=== PATIENT | male | born 1970 | race Caucasian/White ===

== ENCOUNTER 2021-11-05 22:34 | Inpatient (IN) | payer OTHER ==
[~2021-11-05] VITALS: Ht 182.9 cm; Wt 72.3 kg
[2021-11-05 22:49] LABS: BASO # 0.1 x10^3/uL (0.0-0.2); BASO % 1 % (0-3); EOS # 0.2 x10^3/uL (0.0-0.7); EOS % 1 % (0-3); HEMATOCRIT 40.8 % (39.0-53.0); HEMOGLOBIN 13.5 g/dL (13.0-17.5); LYMPH # 4.7 x10^3/uL (1.0-4.8); LYMPH % 41 % (24-48); MEAN CORPUSCULAR HEMOGLOBIN 32 pg (25-35); MEAN CORPUSCULAR HGB CONC 33 g/dL (31-37); MEAN CORPUSCULAR VOLUME 96 fL (79-100); MONO # 0.7 x10^3/uL (0.0-1.1); MONO % 6 % (0-9); NEUT # 5.7 x10^3/uL (1.8-7.7); NEUT % 50 % (31-73); PLATELET COUNT 330 x10^3/uL (140-400); RED BLOOD COUNT 4.26 x10^6/uL (4.30-5.70); WHITE BLOOD COUNT 11.3 x10^3/uL (4.0-11.0)
[2021-11-05] MEDS ORDERED: fentaNYL PF VIAL 100 MCG/2 ML VIAL ONE (22:55)
--- NOTE | 2021-11-05 22:55 | PHYS DOC ---
General Adult EDM: Chief Complaint: CPR/FULL ARREST HPI: HPI: Patient is a 51 year old male brought in by medics after cardiac arrest. Patient had a witnessed cardiac arrest while dancing at a local strip club. Patient was found to be in V. tach by first responders. Patient was shocked and given 1 of epi. Patient achieved ROSC. Patient was intubated in the field and brought into the hospital. Report received from medics. Review of Systems: Review of Systems: Patient intubated and sedated status postcardiac arrest Heart Score: C/O Chest Pain: No Risk Factors: Risk Factors: DM, Current or recent (<one month) smoker, HTN, HLP, family history of CAD, obesity. Risk Scores: Score 0 - 3: 2.5% MACE over next 6 weeks - Discharge Home Score 4 - 6: 20.3% MACE over next 6 weeks - Admit for Clinical Observation Score 7 - 10: 72.7% MACE over next 6 weeks - Early Invasive Strategies Current Medications: Current Medications Medications (Trade) Dose Ordered Sig/Claued Start Time Stop Time Status Last Admin Dose Admin Propofol (Diprivan) 200 mg 1X ONCE 11/05/21 22:45 11/05/21 22:46 UNV Sodium Chloride 1,000 ml @ 1,000 mls/hr 1X ONCE 11/05/21 22:45 11/05/21 23:44 UNV Physical Exam: PE: Constitutional: Patient intubated and unresponsive HENT: Normocephalic, atraumatic, bilateral external ears normal, oropharynx moist, no oral exudates, nose normal. [] Eyes: PERRLA, EOMI, conjunctiva normal, no discharge. [] Neck: Normal range of motion, no tenderness, supple, no stridor. [] Cardiovascular:Heart rate regular rhythm, no murmur [] Lungs & Thorax: Bilateral breath sounds clear to auscultation [] Abdomen: Bowel sounds normal, soft, no tenderness, no masses, no pulsatile masses. [] Skin: Warm, dry, no erythema, no rash. [] Back: No tenderness, no CVA tenderness. [] Extremities: No tenderness, no cyanosis, no clubbing, ROM intact, no edema. [] Neurologic: Alert and oriented X 3, normal motor function, normal sensory function, no focal deficits noted. [] Psychologic: Affect normal, judgement normal, mood normal. [] Current Patient Data: Labs: Laboratory Tests Test 11/05/21 22:39 11/05/21 22:51 White Blood Count 11.3 x10^3/uL Red Blood Count 4.26 x10^6/uL Hemoglobin 13.5 g/dL Hematocrit 40.8 % Mean Corpuscular Volume 96 fL Mean Corpuscular Hemoglobin 32 pg Mean Corpuscular Hemoglobin Concent 33 g/dL Red Cell Distribution Width 16.0 % Platelet Count 330 x10^3/uL Neutrophils (%) (Auto) 50 % Lymphocytes (%) (Auto) 41 % Monocytes (%) (Auto) 6 % Eosinophils (%) (Auto) 1 % Basophils (%) (Auto) 1 % Neutrophils # (Auto) 5.7 x10^3/uL Lymphocytes # (Auto) 4.7 x10^3/uL Monocytes # (Auto) 0.7 x10^3/uL Eosinophils # (Auto) 0.2 x10^3/uL Basophils # (Auto) 0.1 x10^3/uL Prothrombin Time 14.9 SEC Prothromb Time International Ratio 1.2 D-Dimer (Carole) 19.35 ug/mlFEU Sodium Level 132 mmol/L Potassium Level 3.0 mmol/L Chloride Level 97 mmol/L Carbon Dioxide Level 22 mmol/L Anion Gap 13 Blood Urea Nitrogen 5 mg/dL Creatinine 1.0 mg/dL Estimated GFR (Cockcroft-Gault) 78.8 BUN/Creatinine Ratio 5 Glucose Level 164 mg/dL Calcium Level 8.1 mg/dL Total Bilirubin 0.2 mg/dL Aspartate Amino Transf (AST/SGOT) 30 U/L Alanine Aminotransferase (ALT/SGPT) 34 U/L Alkaline Phosphatase 94 U/L Troponin I High Sensitivity 76 ng/L [id number]-[id number]-Type Natriuretic Peptide 5695 pg/mL Total Protein 7.3 g/dL Albumin 3.4 g/dL Albumin/Globulin Ratio 0.9 Urine Collection Type Unknown Urine Color (Auto) Colorless Urine Turbidity Hazy Urine pH (Auto) 6.0 Urine Specific [place] 1.003 Urine Protein (Auto) Negative mg/dL Urine Glucose (Auto)(UA) Negative mg/dL Urine Ketones (Auto) Negative mg/dL Urine Blood (Auto) Negative Urine Nitrite (Auto) Negative Urine Bilirubin (Auto) Negative Urine Urobilinogen (Auto) Normal mg/dL Urine Leukocyte Esterase (Auto) Negative Urine RBC 1-2 /HPF Urine WBC 1-4 /HPF Urine Squamous Epithelial Cells Few /LPF Urine Bacteria 0 /HPF Urine Opiates Screen Urine Methadone Screen Neg Urine Barbiturates Neg Urine Phencyclidine Screen Neg Urine Amphetamine/Methamphetamine Neg Urine Benzodiazepines Screen Neg Urine Cocaine Screen Neg Urine Cannabinoids Screen Neg Urine Ethyl Alcohol Pos Current Medications Medications (Trade) Dose Ordered Sig/Claude Route PRN Reason Start Time Stop Time Status Last Admin Dose Admin Sodium Chloride 1,000 ml @ 1,000 mls/hr 1X ONCE IV 11/05/21 23:30 11/06/21 00:29 DC 11/05/21 23:13 Propofol (Diprivan) 200 mg 1X ONCE IV 11/05/21 23:30 11/05/21 23:31 DC Fentanyl Citrate (Fentanyl 2ml Vial) 100 mcg STK-MED ONCE .ROUTE 11/05/21 22:55 11/05/21 22:55 DC Midazolam HCl 100 ml @ 1 mls/hr 1X ONCE IV 11/05/21 23:30 11/10/21 03:29 11/05/21 23:41 Norepinephrine Bitartrate 8 mg/ Dextrose 258 ml @ 15.441 mls/ hr 1X ONCE IV 11/05/21 23:30 11/06/21 16:12 11/05/21 23:40 Fentanyl Citrate (Fentanyl 2ml Vial) 100 mcg 1X ONCE IVP 11/05/21 23:30 11/05/21 23:31 DC 11/05/21 23:16 Sodium Chloride 500 ml @ 500 mls/hr 1X ONCE IV 11/05/21 23:30 11/06/21 00:29 DC 11/05/21 23:41 Heparin Sodium/ Dextrose 250 ml @ 0 mls/hr CONT PRN IV PER PROTOCOL 11/06/21 00:45 UNV Heparin Sodium (Porcine) (Heparin Sodium) 2,000 unit PRN Q6HRS PRN IV FOR UFH LEVEL LESS THAN 0.2 11/06/21 00:45 UNV Amiodarone HCl 450 mg/Dextrose 259 ml @ 0 mls/hr CONT PRN IV SEE I/O RECORD 11/06/21 00:45 11/07/21 00:42 UNV EKG: EKG: [] Sinus rhythm with a heart rate of 87 QTC of 506 ischemic changes in aVR, ST depressions in lateral leads. Concerns of ischemia in the right main. Radiology/Procedures: Radiology/Procedures: [] CT HEAD/BRAIN WO Indication: Reason: post code / Spl. Instructions: / History: . TECHNIQUE: Head CT was performed without intravenous contrast. One or more of the following dose reduction techniques were utilized: *Automated exposure control (AEC) *Adjustment of mA and/or kV according to patient size *Use of iterative reconstruction technique *CT scan done according to ALARA, or ALARA/IMAGE GENTLY FINDINGS: The ventricles and sulci are normal for the patient's stated age. There is no evidence of acute intracranial hemorrhage, extra-axial collection, mass effect, midline shift, or acute territorial infarct. No lesion of the skull base or the calvarium is seen. The visualized paranasal sinuses, mastoid air cells and orbits are normal in appearance. IMPRESSION: No evidence for acute intracranial abnormality. Course & Med Decision Making: Course & Med Decision Making Pertinent Labs and Imaging studies reviewed. (See chart for details) [] Discussed findings on EKG with cardiology . Patient does have ischemic changes but does not meet criteria for STEMI. Recommends amnio if patient continues to have arrhythmias. Patient's BP currently low and Levophed started. Pending CT scan of the head to start heparin. Discussed with hospitalist. Critical care time 67 minutes Isha Disclaimer: Isha Disclaimer: This electronic medical record was generated, in whole or in part, using a voice recognition dictation system. YONAS MAYORGA DO Nov 05, 2021 22:55
[2021-11-05 23:06] LABS: CALCIUM 8.1 mg/dL (8.5-10.1); GFR 78.8
[2021-11-05 23:10] LABS: PROTHROMBIN TIME PATIENT 14.9 SEC (11.7-14.0)
[2021-11-05 23:12] LABS: ALBUMIN 3.4 g/dL (3.4-5.0); ALBUMIN/GLOBULIN RATIO 0.9 (1.0-1.7); TOTAL BILIRUBIN 0.2 mg/dL (0.2-1.0); TOTAL PROTEIN 7.3 g/dL (6.4-8.2)
[2021-11-05 23:13] LABS: AMPHETAMINE/METHAMPHETAMINE NEG (NEG); BARBITURATES NEG (NEG); BENZODIAZEPINES NEG (NEG); CANNABINOIDS NEG (NEG); COCAINE NEG (NEG); METHADONE NEG (NEG); PHENCYCLIDINE NEG (NEG)
[2021-11-05 23:16] LABS: BACTERIA,URINE 0 /HPF (0-FEW)
[2021-11-05] MEDS ORDERED: IV NORMAL SALINE 500ML BAG 500 ML IV ONE (23:30)
[2021-11-05] MEDS ORDERED: MIDAZOLAM 100mg/100ml NS BAG 100 ML IV ONE (23:30)
[2021-11-05] MEDS ORDERED: PROPOFOL 10 MG/ML (20ML) VIAL. IV ONE (23:30)
[2021-11-05] MEDS ORDERED: fentaNYL PF VIAL 100 MCG/2 ML VIAL IVP ONE (23:30)
[2021-11-05] MEDS ORDERED: NOREPINEPHRINE VIAL 8 MG in IV DEXTROSE 5% 250 ML IV ONE (23:30)
[2021-11-05] MEDS ORDERED: IV NORMAL SALINE 1000ML BAG 1,000 ML IV ONE (23:30)
[2021-11-05 23:33] LABS: D-DIMER 19.35 ug/mlFEU (0.00-0.50)
[2021-11-06] VITALS (25 sets, daily range): BP systolic 92–123; BP diastolic 2–91
--- NOTE | 2021-11-06 00:02 | EKG ---
[facility] [address] [place] [address] Test Date: 2021-11-05 Test Time: 22:41:33 Pat Name: DONNIE RUTH Department: Room: Gender: M Processing Clerk: : 1970 Requested By: YONAS MAYORGA Order Number: [id number] Reading MD: Keagan Parsons Measurements Intervals [place] Rate: 87 P: 69 DE: 136 QRS: 90 QRSD: 140 T: 267 QT: 420 QTc: 506 Interpretive Statements SINUS RHYTHM COMPLEX(ES) WITH ABERRANT INTRAVENTRICULAR CONDUCTION VENTRICULAR PREMATURE COMPLEX(ES) NON SPECIFIC INTRAVENTRICULAR BLOCK LATERAL ST DEPRESSION Electronically Signed On 11-08-2021 17:12:47 CDT by Keagan Parsons
--- NOTE | 2021-11-06 00:21 | RAD ---
Exam Date: 11/05/2021 12:[address] HEAD/BRAIN WO Indication: Reason: post code / Spl. Instructions: / History: . TECHNIQUE: Head CT was performed without intravenous contrast. One or more of the following dose re duction techniques were utilized: *Automated exposure control (AEC) *Adjustment of mA and/or kV according to patient size *Use of iterative reconstruction technique *CT scan done according to ALARA, or ALARA/IMAGE GENTLY FINDINGS: The ventricles and sulci are normal for the patient's stated age. There is no evidence of acute int racranial hemorrhage, extra-axial collection, mass effect, midline shift, or acute territorial infarc t. No lesion of the skull base or the calvarium is seen. The visualized paranasal sinuses, mastoid ai r cells and orbits are normal in appearance. IMPRESSION: No evidence for acute intracranial abnormality. Electronically signed by: Skinny Lange MD (11/06/2021 12:19 AM) [id number]
[2021-11-06] MEDS ORDERED: ANTI-COAG MONITOR BY PHARMACY. MC PRN (01:00)
[2021-11-06] MEDS: AMIODARONE 450 MG in IV DEXTROSE 5% 250 ML IV PRN ×2 (01:07→10:24)
[2021-11-06] MEDS ORDERED: AMIODARONE 150 MG in IV DEXTROSE 5% 100ML 100 ML IV ONE (01:15)
[2021-11-06] MEDS: HEPARIN for IV BOLUS 10,000 UNIT/10 ML VIAL. IV PRN ×2 (01:17→08:33)
[2021-11-06] MEDS: HEPARIN 25,000UTS/250ML PREMIX 250 ML IV PRN ×3 (01:18→23:33)
--- NOTE | 2021-11-06 01:21 | RAD ---
Study: XR CHEST 1V Indication: Post code. Comparison: 04/14/2018 Findings: Endotracheal tube tip terminates 6 cm above the [place] at the level of the clavicles. Upper limits of normal size of the cardiomediastinal silhouette. Faint aortic calcific atherosclerosi s. Relatively symmetric nadiya. Increased interstitial markings. No confluent airspace infiltrate, pleu ral effusion or pneumothorax. Impression: 1. Adequately positioned endotracheal tube with the tip 6 cm above the mercedez. 2. Increased interstitial markings favored interstitial edema. No pleural effusion or pneumothorax. Electronically signed by: BOB THOMAS MD (11/06/2021 1:19 AM) [facility]
--- NOTE | 2021-11-06 01:31 | RAD ---
Study: XR CHEST 1V Indication: Intubation. Comparison: 11/05/2021 at 2258 hours Findings: Endotracheal tube tip terminates 6 cm above the mer[place]ez. Enteric tube extends into the stomach with th e tip just beyond the inferior field of view. The sidehole projects around 2 cm below the expected lo cation of the gastroesophageal junction. No significant new finding again with mildly increased interstitial markings/Stacy B lines. Impression: Adequate support device positioning, as above. No significant new finding throughout the chest again with probable interstitial edema. Electronically signed by: BOB THOMAS MD (11/06/2021 1:29 AM) [facility]
[2021-11-06] MEDS ORDERED: PROPOFOL 100 ML IV ONE (02:59)
[2021-11-06 05:29] LABS: BASE EXCESS ABG -9 mmol/L (-3-3); HCO3 ABG 16 mmol/L (21-28); PCO2 ABG 32 mmHg (35-46); PO2 ABG 115 mmHg (75-108); SAT O2 ABG 98 % (92-99)
[2021-11-06 05:57] LABS: FIO2 ABG 60
--- NOTE | 2021-11-06 07:17 | PDOC1 ---
History and Physical Date of Admission Date of Admission DATE: 11/06/21 TIME: 07:09 Identification/Chief Complaint Chief Complaint Cardiac arrest outside hospital Source Source: Caregiver, Chart review History of Present Illness History of Present Illness Mr Goel is a 51 year old male brought in to ED on 11/05/2021 via EMS after cardiac arrest. Patient had a witnessed cardiac arrest while dancing at a local [employer]. Patient was found to be in V. tach by first responders. Patient w as shocked and given 1 of epi. Patient achieved ROSC. Patient was intubated in the field and brought into the hospital. Labs with WBC 11.3, Hb 13.5, platelets 330, NA 132, K3 BUN 5, CR 1, glucose 164, calcium 8.1, albumin 3.4, LFTs otherwise within normal laboratory limits, NT proBNP 5695, high-sensitivity troponin is 76 urine drug screen positive for ethyl alcohol, urinalysis bland, INR 1.2, D-dimer 19.35, ABG on 60% FiO2 was 7.31/32/158. Chest radiograph well-positioned ET tube and increased interstitial markings. Noncontrast CT head with no acute findings EKG sinus rate 87 bpm incomplete left bundle branch block, QRS 140, QTc 506, PVCs noted. No significant ST elevation or T WI. Admitted to ICU on amiodarone and heparin GTT Past Medical History Past Medical History Unknown. Unable to review sedated on vent. Past Surgical History Past Surgical History Not known. Reviewed sedated on vent. Family History Family History Sedated on vent unable to review Family History: Family History Unknown Social History Smoke: No (Unknown) ALCOHOL: other Drugs: None Current Problem List Problem List Problems Medical Problems: (1) Cardiac arrest Status: Acute Current Medications Current Medications Current Medications Sodium Chloride 1,000 ml @ 1,000 mls/hr 1X ONCE IV Last administered on 11/05/21at 23:13; Start 11/05/21 at 23:30; Stop 11/06/21 at 00:29; Status DC Propofol (Diprivan) 200 mg 1X ONCE IV ; Start 11/05/21 at 23:30; Stop 11/05/21 at 23:31; Status DC Fentanyl Citrate (Fentanyl 2ml Vial) 100 mcg STK-MED ONCE .ROUTE ; Start 11/05/21 at 22:55; Stop 11/05/21 at 22:55; Status DC Midazolam HCl 100 ml @ 1 mls/hr 1X ONCE IV Last administered on 11/05/21at 23:41; Start 11/05/21 at 23:30; Stop 11/10/21 at 03:29 Norepinephrine Bitartrate 8 mg/ Dextrose 258 ml @ 15.441 mls/ hr 1X ONCE IV Last administered on 11/05/21at 23:40; Start 11/05/21 at 23:30; Stop 11/06/21 at 16:12 Fentanyl Citrate (Fentanyl 2ml Vial) 100 mcg 1X ONCE IVP Last administered on 11/05/21at 23:16; Start 11/05/21 at 23:30; Stop 11/05/21 at 23:31; Status DC Sodium Chloride 500 ml @ 500 mls/hr 1X ONCE IV Last administered on 11/05/21at 23:41; Start 11/05/21 at 23:30; Stop 11/06/21 at 00:29; Status DC Heparin Sodium/ Dextrose 250 ml @ 9.576 mls/ hr CONT PRN IV PER PROTOCOL Last administered on 11/06/21at 01:18; Start 11/06/21 at 00:45 Heparin Sodium (Porcine) (Heparin Sodium) 2,000 unit PRN Q6HRS PRN IV FOR UFH LEVEL LESS THAN 0.2 Last administered on 11/06/21at 01:17; Start 11/06/21 at 00:45 Amiodarone HCl 450 mg/Dextrose 259 ml @ 33 mls/hr CONT PRN IV SEE I/O RECORD Last administered on 11/06/21at 01:07; Start 11/06/21 at 00:45; Stop 11/07/21 at 00:42 Info (Anti-Coagulation Monitoring By Pharmacy) 1 each PRN DAILY PRN MC PER PROTOCOL Last administered on 11/06/21at 02:30; Start 11/06/21 at 01:00 Amiodarone HCl 150 mg/Dextrose 103 ml @ 618 mls/hr 1X ONCE IV Last administered on 11/06/21at 01:15; Start 11/06/21 at 01:15; Stop 11/06/21 at 01:24; Status DC Propofol 100 ml @ As Directed STK-MED ONCE IV ; Start 11/06/21 at 02:59; Stop 11/06/21 at 02:59; Status DC Allergies Allergies: Coded Allergies: No Known Drug Allergies (Unverified , 11/05/21) ROS Review of System Unable to review sedated on ventilator. Physical Exam General: mild distress, Other (Sedated intubated.) HEENT: Atraumatic, PERRLA, EOMI, Mucous membr. moist/pink Lungs: Other (Bibasilar crackles) Heart: S1S2, RRR, no thrills, no rubs Abdomen: Normal bowel sounds, Soft, No tenderness, No hepatosplenomegaly, No masses Rectal Exam: not examined Extremities: No clubbing, No cyanosis, No edema, Normal pulses, No tenderness/swelling Skin: No rashes, No breakdown, No significant lesion Neuro: Normal tone, Sensation intact, Reflexes 2+ Psych/Mental Status: Other (Sedated) Vitals Vitals Vital Signs Date Time Temp Pulse Resp B/P (MAP) Pulse Ox O2 Delivery O2 Flow Rate FiO2 11/06/21 06:00 91 27 109/64 100 Ventilator 11/06/21 04:00 98.4 98.4 Labs Labs Laboratory Tests Test 11/05/21 22:39 11/05/21 22:51 11/06/21 05:25 White Blood Count 11.3 x10^3/uL (4.0-11.0) Red Blood Count 4.26 x10^6/uL (4.30-5.70) Hemoglobin 13.5 g/dL (13.0-17.5) Hematocrit 40.8 % (39.0-53.0) Mean Corpuscular Volume 96 fL (79-100) Mean Corpuscular Hemoglobin 32 pg (25-35) Mean Corpuscular Hemoglobin Concent 33 g/dL (31-37) Red Cell Distribution Width 16.0 % (11.5-14.5) Platelet Count 330 x10^3/uL (140-400) Neutrophils (%) (Auto) 50 % (31-73) Lymphocytes (%) (Auto) 41 % (24-48) Monocytes (%) (Auto) 6 % (0-9) Eosinophils (%) (Auto) 1 % (0-3) Basophils (%) (Auto) 1 % (0-3) Neutrophils # (Auto) 5.7 x10^3/uL (1.8-7.7) Lymphocytes # (Auto) 4.7 x10^3/uL (1.0-4.8) Monocytes # (Auto) 0.7 x10^3/uL (0.0-1.1) Eosinophils # (Auto) 0.2 x10^3/uL (0.0-0.7) Basophils # (Auto) 0.1 x10^3/uL (0.0-0.2) Prothrombin Time 14.9 SEC (11.7-14.0) Prothromb Time International Ratio 1.2 (0.8-1.1) D-Dimer (Carole) 19.35 ug/mlFEU (0.00-0.50) Sodium Level 132 mmol/L (136-145) Potassium Level 3.0 mmol/L (3.5-5.1) Chloride Level 97 mmol/L (98-107) Carbon Dioxide Level 22 mmol/L (21-32) Anion Gap 13 (6-14) Blood Urea Nitrogen 5 mg/dL (8-26) Creatinine 1.0 mg/dL (0.7-1.3) Estimated GFR (Cockcroft-Gault) 78.8 BUN/Creatinine Ratio 5 (6-20) Glucose Level 164 mg/dL (70-99) Calcium Level 8.1 mg/dL (8.5-10.1) Total Bilirubin 0.2 mg/dL (0.2-1.0) Aspartate Amino Transf (AST/SGOT) 30 U/L (15-37) Alanine Aminotransferase (ALT/SGPT) 34 U/L (16-63) Alkaline Phosphatase 94 U/L (46-116) Troponin I High Sensitivity 76 ng/L (4-75) IF-Xhq-U-Type Natriuretic Peptide 5695 pg/mL (0-124) Total Protein 7.3 g/dL (6.4-8.2) Albumin 3.4 g/dL (3.4-5.0) Albumin/Globulin Ratio 0.9 (1.0-1.7) Urine Collection Type Unknown Urine Color (Auto) Colorless Urine Turbidity Hazy Urine pH (Auto) 6.0 (<5.0-8.0) Urine Specific [place] 1.003 (1.000-1.030) Urine Protein (Auto) Negative mg/dL (Negative) Urine Glucose (Auto)(UA) Negative mg/dL (Negative) Urine Ketones (Auto) Negative mg/dL (Negative) Urine Blood (Auto) Negative (Negative) Urine Nitrite (Auto) Negative (Negative) Urine Bilirubin (Auto) Negative (Negative) Urine Urobilinogen (Auto) Normal mg/dL (Normal) Urine Leukocyte Esterase (Auto) Negative (Negative) Urine RBC 1-2 /HPF (0-2) Urine WBC 1-4 /HPF (0-4) Urine Squamous Epithelial Cells Few /LPF Urine Bacteria 0 /HPF (0-FEW) Urine Opiates Screen (NEG) Urine Methadone Screen Neg (NEG) Urine Barbiturates Neg (NEG) Urine Phencyclidine Screen Neg (NEG) Urine Amphetamine/Methamphetamine Neg (NEG) Urine Benzodiazepines Screen Neg (NEG) Urine Cocaine Screen Neg (NEG) Urine Cannabinoids Screen Neg (NEG) Urine Ethyl Alcohol Pos (NEG) O2 Saturation 98 % (92-99) Arterial Blood pH 7.31 (7.35-7.45) Arterial Blood pCO2 at Patient Temp 32 mmHg (35-46) Arterial Blood pO2 at Patient Temp 115 mmHg (75-108) Arterial Blood HCO3 16 mmol/L (21-28) Arterial Blood Base Excess -9 mmol/L (-3-3) FiO2 60 Laboratory Tests Test 11/05/21 22:39 11/05/21 22:51 11/06/21 05:25 White Blood Count 11.3 x10^3/uL (4.0-11.0) Red Blood Count 4.26 x10^6/uL (4.30-5.70) Hemoglobin 13.5 g/dL (13.0-17.5) Hematocrit 40.8 % (39.0-53.0) Mean Corpuscular Volume 96 fL (79-100) Mean Corpuscular Hemoglobin 32 pg (25-35) Mean Corpuscular Hemoglobin Concent 33 g/dL (31-37) Red Cell Distribution Width 16.0 % (11.5-14.5) Platelet Count 330 x10^3/uL (140-400) Neutrophils (%) (Auto) 50 % (31-73) Lymphocytes (%) (Auto) 41 % (24-48) Monocytes (%) (Auto) 6 % (0-9) Eosinophils (%) (Auto) 1 % (0-3) Basophils (%) (Auto) 1 % (0-3) Neutrophils # (Auto) 5.7 x10^3/uL (1.8-7.7) Lymphocytes # (Auto) 4.7 x10^3/uL (1.0-4.8) Monocytes # (Auto) 0.7 x10^3/uL (0.0-1.1) Eosinophils # (Auto) 0.2 x10^3/uL (0.0-0.7) Basophils # (Auto) 0.1 x10^3/uL (0.0-0.2) Prothrombin Time 14.9 SEC (11.7-14.0) Prothromb Time International Ratio 1.2 (0.8-1.1) D-Dimer (Carole) 19.35 ug/mlFEU (0.00-0.50) Sodium Level 132 mmol/L (136-145) Potassium Level 3.0 mmol/L (3.5-5.1) Chloride Level 97 mmol/L (98-107) Carbon Dioxide Level 22 mmol/L (21-32) Anion Gap 13 (6-14) Blood Urea Nitrogen 5 mg/dL (8-26) Creatinine 1.0 mg/dL (0.7-1.3) Estimated GFR (Cockcroft-Gault) 78.8 BUN/Creatinine Ratio 5 (6-20) Glucose Level 164 mg/dL (70-99) Calcium Level 8.1 mg/dL (8.5-10.1) Total Bilirubin 0.2 mg/dL (0.2-1.0) Aspartate Amino Transf (AST/SGOT) 30 U/L (15-37) Alanine Aminotransferase (ALT/SGPT) 34 U/L (16-63) Alkaline Phosphatase 94 U/L (46-116) Troponin I High Sensitivity 76 ng/L (4-75) LF-Kmc-Z-Type Natriuretic Peptide 5695 pg/mL (0-124) Total Protein 7.3 g/dL (6.4-8.2) Albumin 3.4 g/dL (3.4-5.0) Albumin/Globulin Ratio 0.9 (1.0-1.7) Urine Collection Type Unknown Urine Color (Auto) Colorless Urine Turbidity Hazy Urine pH (Auto) 6.0 (<5.0-8.0) Urine Specific [place] 1.003 (1.000-1.030) Urine Protein (Auto) Negative mg/dL (Negative) Urine Glucose (Auto)(UA) Negative mg/dL (Negative) Urine Ketones (Auto) Negative mg/dL (Negative) Urine Blood (Auto) Negative (Negative) Urine Nitrite (Auto) Negative (Negative) Urine Bilirubin (Auto) Negative (Negative) Urine Urobilinogen (Auto) Normal mg/dL (Normal) Urine Leukocyte Esterase (Auto) Negative (Negative) Urine RBC 1-2 /HPF (0-2) Urine WBC 1-4 /HPF (0-4) Urine Squamous Epithelial Cells Few /LPF Urine Bacteria 0 /HPF (0-FEW) Urine Opiates Screen (NEG) Urine Methadone Screen Neg (NEG) Urine Barbiturates Neg (NEG) Urine Phencyclidine Screen Neg (NEG) Urine Amphetamine/Methamphetamine Neg (NEG) Urine Benzodiazepines Screen Neg (NEG) Urine Cocaine Screen Neg (NEG) Urine Cannabinoids Screen Neg (NEG) Urine Ethyl Alcohol Pos (NEG) O2 Saturation 98 % (92-99) Arterial Blood pH 7.31 (7.35-7.45) Arterial Blood pCO2 at Patient Temp 32 mmHg (35-46) Arterial Blood pO2 at Patient Temp 115 mmHg (75-108) Arterial Blood HCO3 16 mmol/L (21-28) Arterial Blood Base Excess -9 mmol/L (-3-3) FiO2 60 Images Images XR CHEST 1V Indication: Intubation. Comparison: 11/05/2021 at 2258 hours Findings: Endotracheal tube tip terminates 6 cm above the [place]. Enteric tube extends into the stomach with the tip just beyond the inferior field of view. The sidehole projects around 2 cm below the expected location of the gastroesophageal junction. No significant new finding again with mildly increased interstitial markings/Stacy B lines. Impression: Adequate support device positioning, as above. No significant new finding throughout the chest again with probable interstitial edema. CT HEAD/BRAIN WO Indication: Reason: post code / Spl. Instructions: / History: . TECHNIQUE: Head CT was performed without intravenous contrast. One or more of the following dose reduction techniques were utilized: *Automated exposure control (AEC) *Adjustment of mA and/or kV according to patient size *Use of iterative reconstruction technique *CT scan done according to ALARA, or ALARA/IMAGE GENTLY FINDINGS: The ventricles and sulci are normal for the patient's stated age. There is no evidence of acute intracranial hemorrhage, extra-axial collection, mass effect, midline shift, or acute territorial infarct. No lesion of the skull base or the calvarium is seen. The visualized paranasal sinuses, mastoid air cells and orbits are normal in appearance. IMPRESSION: No evidence for acute intracranial abnormality. VTE Prophylaxis Ordered VTE Prophylaxis Devices: Yes VTE Pharmacological Prophylaxi: Yes Assessment/Plan Assessment/Plan Ventricular tachycardia arrest - on amiodarone gtt. Awaiting cardiac evaluation Acute diastolic CHF - due to cardiac arrest, need echo to assess systolic function Hyponatremia - likely hypervolemic, possibly alcohol related Hypokalemia - replace Hyperglycemia - check A1c Respiratory arrest - due to cardiac arrest. Pulmonology consulted. Seen on AC mode FEN - NPO PPX - heparin FULL CODE Dispo - ICU cc time 33 minutes Justifications for Admission Other Justification YEHUDA HAMM MD Nov 06, 2021 07:17
[2021-11-06] MEDS ORDERED: hydrALAZINE 20 MG/ML VIAL. IVP PRN (07:30)
[2021-11-06] MEDS ORDERED: ONDANSETRON PF 4 MG/2 ML VIAL. IVP PRN (07:30)
[2021-11-06] MEDS ORDERED: NITROGLYCERIN SUBLINGUAL 0.4 MG BOTTLE OF 25. SL PRN (07:30)
[2021-11-06] MEDS ORDERED: ACETAMINOPHEN 650 MG/20.3 ML SOLUTION. PEG PRN (07:30)
--- NOTE | 2021-11-06 08:35 | PDOC ---
PULMONARY PROGRESS NOTES DATE: 11/06/21 TIME: 08:34 Subjective Full consult dictated Out of hospital cardiopulmonary arrest Will await cardiology input If no diagnostic studies are pending, will proceed with possible extubation Vitals Vital Signs Date Time Temp Pulse Resp B/P (MAP) Pulse Ox O2 Delivery O2 Flow Rate FiO2 11/06/21 06:00 91 27 109/64 100 Ventilator 11/06/21 04:00 98.4 98.4 Labs Laboratory Tests Test 11/05/21 22:39 11/05/21 22:51 11/06/21 05:25 11/06/21 07:20 White Blood Count 11.3 x10^3/uL (4.0-11.0) Red Blood Count 4.26 x10^6/uL (4.30-5.70) Hemoglobin 13.5 g/dL (13.0-17.5) Hematocrit 40.8 % (39.0-53.0) Mean Corpuscular Volume 96 fL (79-100) Mean Corpuscular Hemoglobin 32 pg (25-35) Mean Corpuscular Hemoglobin Concent 33 g/dL (31-37) Red Cell Distribution Width 16.0 % (11.5-14.5) Platelet Count 330 x10^3/uL (140-400) Neutrophils (%) (Auto) 50 % (31-73) Lymphocytes (%) (Auto) 41 % (24-48) Monocytes (%) (Auto) 6 % (0-9) Eosinophils (%) (Auto) 1 % (0-3) Basophils (%) (Auto) 1 % (0-3) Neutrophils # (Auto) 5.7 x10^3/uL (1.8-7.7) Lymphocytes # (Auto) 4.7 x10^3/uL (1.0-4.8) Monocytes # (Auto) 0.7 x10^3/uL (0.0-1.1) Eosinophils # (Auto) 0.2 x10^3/uL (0.0-0.7) Basophils # (Auto) 0.1 x10^3/uL (0.0-0.2) Prothrombin Time 14.9 SEC (11.7-14.0) Prothromb Time International Ratio 1.2 (0.8-1.1) D-Dimer (Carole) 19.35 ug/mlFEU (0.00-0.50) Sodium Level 132 mmol/L (136-145) Potassium Level 3.0 mmol/L (3.5-5.1) Chloride Level 97 mmol/L (98-107) Carbon Dioxide Level 22 mmol/L (21-32) Anion Gap 13 (6-14) Blood Urea Nitrogen 5 mg/dL (8-26) Creatinine 1.0 mg/dL (0.7-1.3) Estimated GFR (Cockcroft-Gault) 78.8 BUN/Creatinine Ratio 5 (6-20) Glucose Level 164 mg/dL (70-99) Calcium Level 8.1 mg/dL (8.5-10.1) Total Bilirubin 0.2 mg/dL (0.2-1.0) Aspartate Amino Transf (AST/SGOT) 30 U/L (15-37) Alanine Aminotransferase (ALT/SGPT) 34 U/L (16-63) Alkaline Phosphatase 94 U/L (46-116) Troponin I High Sensitivity 76 ng/L (4-75) 53264 ng/L (4-75) FL-Pdq-B-Type Natriuretic Peptide 5695 pg/mL (0-124) Total Protein 7.3 g/dL (6.4-8.2) Albumin 3.4 g/dL (3.4-5.0) Albumin/Globulin Ratio 0.9 (1.0-1.7) Urine Collection Type Unknown Urine Color (Auto) Colorless Urine Turbidity Hazy Urine pH (Auto) 6.0 (<5.0-8.0) Urine Specific [place] 1.003 (1.000-1.030) Urine Protein (Auto) Negative mg/dL (Negative) Urine Glucose (Auto)(UA) Negative mg/dL (Negative) Urine Ketones (Auto) Negative mg/dL (Negative) Urine Blood (Auto) Negative (Negative) Urine Nitrite (Auto) Negative (Negative) Urine Bilirubin (Auto) Negative (Negative) Urine Urobilinogen (Auto) Normal mg/dL (Normal) Urine Leukocyte Esterase (Auto) Negative (Negative) Urine RBC 1-2 /HPF (0-2) Urine WBC 1-4 /HPF (0-4) Urine Squamous Epithelial Cells Few /LPF Urine Bacteria 0 /HPF (0-FEW) Urine Opiates Screen (NEG) Urine Methadone Screen Neg (NEG) Urine Barbiturates Neg (NEG) Urine Phencyclidine Screen Neg (NEG) Urine Amphetamine/Methamphetamine Neg (NEG) Urine Benzodiazepines Screen Neg (NEG) Urine Cocaine Screen Neg (NEG) Urine Cannabinoids Screen Neg (NEG) Urine Ethyl Alcohol Pos (NEG) O2 Saturation 98 % (92-99) Arterial Blood pH 7.31 (7.35-7.45) Arterial Blood pCO2 at Patient Temp 32 mmHg (35-46) Arterial Blood pO2 at Patient Temp 115 mmHg (75-108) Arterial Blood HCO3 16 mmol/L (21-28) Arterial Blood Base Excess -9 mmol/L (-3-3) FiO2 60 Heparin Anti-Xa Act, Unfractionated < 0.10 IU/mL (0.30-0.70) Laboratory Tests Test 11/05/21 22:39 11/05/21 22:51 11/06/21 05:25 11/06/21 07:20 White Blood Count 11.3 x10^3/uL (4.0-11.0) Red Blood Count 4.26 x10^6/uL (4.30-5.70) Hemoglobin 13.5 g/dL (13.0-17.5) Hematocrit 40.8 % (39.0-53.0) Mean Corpuscular Volume 96 fL (79-100) Mean Corpuscular Hemoglobin 32 pg (25-35) Mean Corpuscular Hemoglobin Concent 33 g/dL (31-37) Red Cell Distribution Width 16.0 % (11.5-14.5) Platelet Count 330 x10^3/uL (140-400) Neutrophils (%) (Auto) 50 % (31-73) Lymphocytes (%) (Auto) 41 % (24-48) Monocytes (%) (Auto) 6 % (0-9) Eosinophils (%) (Auto) 1 % (0-3) Basophils (%) (Auto) 1 % (0-3) Neutrophils # (Auto) 5.7 x10^3/uL (1.8-7.7) Lymphocytes # (Auto) 4.7 x10^3/uL (1.0-4.8) Monocytes # (Auto) 0.7 x10^3/uL (0.0-1.1) Eosinophils # (Auto) 0.2 x10^3/uL (0.0-0.7) Basophils # (Auto) 0.1 x10^3/uL (0.0-0.2) Prothrombin Time 14.9 SEC (11.7-14.0) Prothromb Time International Ratio 1.2 (0.8-1.1) D-Dimer (Carole) 19.35 ug/mlFEU (0.00-0.50) Sodium Level 132 mmol/L (136-145) Potassium Level 3.0 mmol/L (3.5-5.1) Chloride Level 97 mmol/L (98-107) Carbon Dioxide Level 22 mmol/L (21-32) Anion Gap 13 (6-14) Blood Urea Nitrogen 5 mg/dL (8-26) Creatinine 1.0 mg/dL (0.7-1.3) Estimated GFR (Cockcroft-Gault) 78.8 BUN/Creatinine Ratio 5 (6-20) Glucose Level 164 mg/dL (70-99) Calcium Level 8.1 mg/dL (8.5-10.1) Total Bilirubin 0.2 mg/dL (0.2-1.0) Aspartate Amino Transf (AST/SGOT) 30 U/L (15-37) Alanine Aminotransferase (ALT/SGPT) 34 U/L (16-63) Alkaline Phosphatase 94 U/L (46-116) Troponin I High Sensitivity 76 ng/L (4-75) 69291 ng/L (4-75) XA-Trq-U-Type Natriuretic Peptide 5695 pg/mL (0-124) Total Protein 7.3 g/dL (6.4-8.2) Albumin 3.4 g/dL (3.4-5.0) Albumin/Globulin Ratio 0.9 (1.0-1.7) Urine Collection Type Unknown Urine Color (Auto) Colorless Urine Turbidity Hazy Urine pH (Auto) 6.0 (<5.0-8.0) Urine Specific [place] 1.003 (1.000-1.030) Urine Protein (Auto) Negative mg/dL (Negative) Urine Glucose (Auto)(UA) Negative mg/dL (Negative) Urine Ketones (Auto) Negative mg/dL (Negative) Urine Blood (Auto) Negative (Negative) Urine Nitrite (Auto) Negative (Negative) Urine Bilirubin (Auto) Negative (Negative) Urine Urobilinogen (Auto) Normal mg/dL (Normal) Urine Leukocyte Esterase (Auto) Negative (Negative) Urine RBC 1-2 /HPF (0-2) Urine WBC 1-4 /HPF (0-4) Urine Squamous Epithelial Cells Few /LPF Urine Bacteria 0 /HPF (0-FEW) Urine Opiates Screen (NEG) Urine Methadone Screen Neg (NEG) Urine Barbiturates Neg (NEG) Urine Phencyclidine Screen Neg (NEG) Urine Amphetamine/Methamphetamine Neg (NEG) Urine Benzodiazepines Screen Neg (NEG) Urine Cocaine Screen Neg (NEG) Urine Cannabinoids Screen Neg (NEG) Urine Ethyl Alcohol Pos (NEG) O2 Saturation 98 % (92-99) Arterial Blood pH 7.31 (7.35-7.45) Arterial Blood pCO2 at Patient Temp 32 mmHg (35-46) Arterial Blood pO2 at Patient Temp 115 mmHg (75-108) Arterial Blood HCO3 16 mmol/L (21-28) Arterial Blood Base Excess -9 mmol/L (-3-3) FiO2 60 Heparin Anti-Xa Act, Unfractionated < 0.10 IU/mL (0.30-0.70) LOUIS ALCARAZ MD Nov 06, 2021 08:35
[2021-11-06] MEDS: POLYETHYLENE GLYCOL 3350 17 GM PACKET. PO SCH (09:00)
[2021-11-06 09:44] LABS: ALBUMIN 3.3 g/dL (3.4-5.0); ALBUMIN/GLOBULIN RATIO 1.1 (1.0-1.7); CALCIUM 7.9 mg/dL (8.5-10.1); CREATININE 1.5 mg/dL (0.7-1.3); GFR 49.3; POTASSIUM 4.7 mmol/L (3.5-5.1); TOTAL BILIRUBIN 0.3 mg/dL (0.2-1.0); TOTAL PROTEIN 6.4 g/dL (6.4-8.2)
[2021-11-06 09:47] LABS: CHOLESTEROL/HDL RATIO 4.7
[2021-11-06] MEDS: NOREPINEPHRINE VIAL 8 MG in IV DEXTROSE 5% 250 ML IV PRN (10:05)
--- NOTE | 2021-11-06 10:40 | PDOC2 ---
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 Leon SOURCE Source: Chart review HISTORY OF PRESENT ILLNESS HISTORY OF PRESENT ILLNESS This is a 51 yo male who presented following witness cardiac arrest at [facility]. Was reportedly noted in [place] upon EMS arrival. Patient reportedly received 1 shock and given 1 dose of epi prior to ROSC. EMS rhythm strips are not available. Required intubation. Was initiated on amiodarone and heparin gtt upon arrival to ED. No further arrhythmias noted overnight. Troponin trended up to 11,000 overnight. Is requiring pressor support. No prior history of heart disease, although does not routinely go to the doctor. 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 PAST MEDICAL HISTORY Cardiovascular: No pertinent hx Pulmonary: No pertinent hx GI: No pertinent hx Hepatobiliary: No pertinent hx Psych: No pertinent hx Musculoskeletal: Osteoarthritis Infectious disease: No pertinent hx ENT: No pertinent hx PAST SURGICAL HISTORY Past Surgical History: Total knee replacement FAMILY HISTORY Family History: Heart Disease SOCIAL HISTORY Smoke: 1 pack per day ALCOHOL: heavy Drugs: None Lives: Alone CURRENT MEDICATIONS CURRENT MEDICATIONS Current Medications Medications (Trade) Dose Ordered Sig/Claude Route PRN Reason Start Time Stop Time Status Last Admin Dose Admin Sodium Chloride 1,000 ml @ 1,000 mls/hr 1X ONCE IV 11/05/21 23:30 11/06/21 00:29 DC 11/05/21 23:13 Midazolam HCl 100 ml @ 1 mls/hr 1X ONCE IV 11/05/21 23:30 11/10/21 03:29 11/05/21 23:41 Norepinephrine Bitartrate 8 mg/ Dextrose 258 ml @ 15.441 mls/ hr 1X ONCE IV 11/05/21 23:30 11/06/21 16:12 11/05/21 23:40 Fentanyl Citrate (Fentanyl 2ml Vial) 100 mcg 1X ONCE IVP 11/05/21 23:30 11/05/21 23:31 DC 11/05/21 23:16 Sodium Chloride 500 ml @ 500 mls/hr 1X ONCE IV 11/05/21 23:30 11/06/21 00:29 DC 11/05/21 23:41 Heparin Sodium/ Dextrose 250 ml @ 9.576 mls/ hr CONT PRN IV PER PROTOCOL 11/06/21 00:45 11/06/21 08:34 Heparin Sodium (Porcine) (Heparin Sodium) 2,000 unit PRN Q6HRS PRN IV FOR UFH LEVEL LESS THAN 0.2 11/06/21 00:45 11/06/21 08:33 Amiodarone HCl 450 mg/Dextrose 259 ml @ 33 mls/hr CONT PRN IV SEE I/O RECORD 11/06/21 00:45 11/07/21 00:42 11/06/21 01:07 Info (Anti-Coagulation Monitoring By Pharmacy) 1 each PRN DAILY PRN MC PER PROTOCOL 11/06/21 01:00 11/06/21 02:30 Amiodarone HCl 150 mg/Dextrose 103 ml @ 618 mls/hr 1X ONCE IV 11/06/21 01:15 11/06/21 01:24 DC 11/06/21 01:15 Fentanyl Citrate 30 ml @ 2.5 mls/hr CONT PRN IV SEE PROTOCOL 11/06/21 08:30 11/06/21 08:59 Norepinephrine Bitartrate 8 mg/ Dextrose 258 ml @ 22.64 mls/ hr CONT PRN IV PER PROTOCOL 11/06/21 10:00 11/06/21 10:05 ALLERGIES ALLERGIES: Coded Allergies: No Known Drug Allergies (Unverified , 11/05/21) ROS Review of System unobtainable PHYSICAL EXAM General: No acute distress HEENT: Atraumatic, Other (intubated ) Lungs: Other (MV ) Heart: Regular rate Abdomen: Soft Extremities: No edema Skin: No significant lesion Neuro: Other (unable to assess) Psych/Mental Status: Other (sedated ) MUSCULOSKELETAL: No deformity VITALS/I&O VITALS/I&O: Vital Signs Date Time Temp Pulse Resp B/P (MAP) Pulse Ox O2 Delivery O2 Flow Rate FiO2 11/06/21 10:00 81 24 113/74 91 Ventilator 11/06/21 08:00 98.8 98.8 I & O 11/05/21 11/05/21 11/06/21 15:00 23:00 07:00 Intake Total 1894.10 ml Output Total 37 ml Balance 1857.10 ml LABS Lab: Laboratory Tests Test 11/05/21 22:39 11/05/21 22:51 11/06/21 05:25 11/06/21 07:20 White Blood Count 11.3 x10^3/uL (4.0-11.0) H Red Blood Count 4.26 x10^6/uL (4.30-5.70) L Hemoglobin 13.5 g/dL (13.0-17.5) Hematocrit 40.8 % (39.0-53.0) Mean Corpuscular Volume 96 fL (79-100) Mean Corpuscular Hemoglobin 32 pg (25-35) Mean Corpuscular Hemoglobin Concent 33 g/dL (31-37) Red Cell Distribution Width 16.0 % (11.5-14.5) H Platelet Count 330 x10^3/uL (140-400) Neutrophils (%) (Auto) 50 % (31-73) Lymphocytes (%) (Auto) 41 % (24-48) Monocytes (%) (Auto) 6 % (0-9) Eosinophils (%) (Auto) 1 % (0-3) Basophils (%) (Auto) 1 % (0-3) Neutrophils # (Auto) 5.7 x10^3/uL (1.8-7.7) Lymphocytes # (Auto) 4.7 x10^3/uL (1.0-4.8) Monocytes # (Auto) 0.7 x10^3/uL (0.0-1.1) Eosinophils # (Auto) 0.2 x10^3/uL (0.0-0.7) Basophils # (Auto) 0.1 x10^3/uL (0.0-0.2) Prothrombin Time 14.9 SEC (11.7-14.0) H Prothrombin Time INR 1.2 (0.8-1.1) H D-Dimer (Carole) 19.35 ug/mlFEU (0.00-0.50) H Sodium Level 132 mmol/L (136-145) L 133 mmol/L (136-145) L Potassium Level 3.0 mmol/L (3.5-5.1) L 4.7 mmol/L (3.5-5.1) # Chloride Level 97 mmol/L (98-107) L 98 mmol/L (98-107) Carbon Dioxide Level 22 mmol/L (21-32) 17 mmol/L (21-32) L Anion Gap 13 (6-14) 18 (6-14) H Blood Urea Nitrogen 5 mg/dL (8-26) L 11 mg/dL (8-26) Creatinine 1.0 mg/dL (0.7-1.3) 1.5 mg/dL (0.7-1.3) H Estimated GFR (Cockcroft-Gault) 78.8 49.3 BUN/Creatinine Ratio 5 (6-20) L 7 (6-20) Glucose Level 164 mg/dL (70-99) H 126 mg/dL (70-99) H Calcium Level 8.1 mg/dL (8.5-10.1) L 7.9 mg/dL (8.5-10.1) L Total Bilirubin 0.2 mg/dL (0.2-1.0) 0.3 mg/dL (0.2-1.0) Aspartate Amino Transferase (AST) 30 U/L (15-37) 78 U/L (15-37) H Alanine Aminotransferase (ALT) 34 U/L (16-63) 40 U/L (16-63) Alkaline Phosphatase 94 U/L (46-116) 85 U/L (46-116) Troponin I High Sensitivity 76 ng/L (4-75) H 46037 ng/L (4-75) H OW-Een-V-Type Natriuretic Peptide 5695 pg/mL (0-124) H Total Protein 7.3 g/dL (6.4-8.2) 6.4 g/dL (6.4-8.2) Albumin 3.4 g/dL (3.4-5.0) 3.3 g/dL (3.4-5.0) L Albumin/Globulin Ratio 0.9 (1.0-1.7) L 1.1 (1.0-1.7) Urine Collection Type Unknown Urine Color (Auto) Colorless Urine Turbidity Hazy Urine pH (Auto) 6.0 (<5.0-8.0) Urine Specific [place] 1.003 (1.000-1.030) Urine Protein (Auto) Negative mg/dL (Negative) Urine Glucose (Auto)(UA) Negative mg/dL (Negative) Urine Ketones (Auto) Negative mg/dL (Negative) Urine Blood (Auto) Negative (Negative) Urine Nitrite (Auto) Negative (Negative) Urine Bilirubin (Auto) Negative (Negative) Urine Urobilinogen (Auto) Normal mg/dL (Normal) Urine Leukocyte Esterase (Auto) Negative (Negative) Urine RBC 1-2 /HPF (0-2) Urine WBC 1-4 /HPF (0-4) Urine Squamous Epithelial Cells Few /LPF Urine Bacteria 0 /HPF (0-FEW) Urine Opiates Screen (NEG) Urine Methadone Screen Neg (NEG) Urine Barbiturates Neg (NEG) Urine Phencyclidine Screen Neg (NEG) Urine Amphetamine/Methamphetamine Neg (NEG) Urine Benzodiazepines Screen Neg (NEG) Urine Cocaine Screen Neg (NEG) Urine Cannabinoids Screen Neg (NEG) Urine Ethyl Alcohol Pos (NEG) O2 Saturation 98 % (92-99) Arterial Blood pH 7.31 (7.35-7.45) L Arterial Blood pCO2 at Patient Temp 32 mmHg (35-46) L Arterial Blood pO2 at Patient Temp 115 mmHg (75-108) H Arterial Blood HCO3 16 mmol/L (21-28) L Arterial Blood Base Excess -9 mmol/L (-3-3) L FiO2 60 Heparin Anti-Xa Act, Unfractionated < 0.10 IU/mL (0.30-0.70) L Magnesium Level 1.9 mg/dL (1.8-2.4) Triglycerides Level 106 mg/dL (0-150) Cholesterol Level 187 mg/dL (0-200) LDL Cholesterol, Calculated 126 mg/dL (0-100) H VLDL Cholesterol, Calculated 21 mg/dL (0-40) Non-HDL Cholesterol Calculated 147 mg/dL (0-129) H HDL Cholesterol 40 mg/dL (40-60) Cholesterol/HDL Ratio 4.7 Thyroid Stimulating Hormone (TSH) 0.630 uIU/mL (0.358-3.74) Laboratory Tests 11/05/21 22:39 Laboratory Tests 11/05/21 22:39 11/06/21 07:20 ASSESSMENT/PLAN ASSESSMENT/PLAN 1. OOH Cardiac arrest, witness; EMS noted in [place]- strips not available. ROSC achieved follow 1 round of CPR and dose of Epi. On amiodarone gtt. No further arrhythmias 2. Acute respiratory failure; secondary to above. S/p intubation 3. NSTEMI; trop highest 11,543. on heparin 4. Severe cardiomyopathy; preliminary echo with LVEF near 15% 5. Cardiogenic shock; requiring pressor support 6. TUNDE 7. Hypokalemia; replaced 8. ETOH misuse 9. Tobaccosim Recommendations Continue heparin gtt Amidoarone for rhythm maintenance No BB with hypotension Add ASA Lipids Will need LHC given presentation, [place], cardiomyoapthy. R/b/a discussed with daughter, Fior, and she is agreeable to proceed. MONCHO AGUILAR MD 11/06/212037: CARDIAC CONSULT ASSESSMENT/PLAN ASSESSMENT/PLAN Patient seen and examined. Agree with SEO INTERN's assessment and plan. Patient with ischemic VT/cardiac arrest s/p successful resuscitation NSTEMI - urgent cardiac cath showed severe 3v CAD 2D echo showed EF 15-20% LVEDP significantly elevated consistent with acute combined systolic and diastolic HF Start milrinone infusion for inotropic support and diurese with lasix IV Options for CABG transfer discussed with patient's daughter - she used to work for [employer] and would like patient transferred to [facility] Continue vent management per pulm team Plan transfer to [facility] after extubation Continue amiodarone for now for VT suppression Thank you for your consultation Total critical care time spent evaluating and managing patient 50 mins DIOMEDES HAWK APRN Nov 06, 2021 10:40 MONCHO AGUILAR MD Nov 06, 2021 20:38
[2021-11-06] MEDS: ASPIRIN CHEWABLE 81 MG TABLET. PO SCH (11:00)
[2021-11-06] MEDS ORDERED: IODIXANOL 320 MG/ML 100 ML VIAL. ONE (13:47)
[2021-11-06] MEDS ORDERED: LIDOCAINE 1% PF 2 ML VIAL. ONE (13:47)
[2021-11-06] MEDS ORDERED: fentaNYL PF VIAL 100 MCG/2 ML VIAL ONE (14:02)
[2021-11-06] MEDS ORDERED: MIDAZOLAM HCL/PF 2 MG/2 ML VIAL. ONE (14:02)
[2021-11-06] MEDS ORDERED: VERAPAMIL 5 MG/2 ML VIAL. ONE (14:03)
[2021-11-06] MEDS ORDERED: HEPARIN for IV BOLUS 10,000 UNIT/10 ML VIAL. ONE (14:03)
[2021-11-06] MEDS ORDERED: HEPARIN for IV BOLUS 10,000 UNIT/10 ML VIAL. IART ONE (14:45)
[2021-11-06] MEDS ORDERED: IODIXANOL 320 MG/ML 100 ML VIAL. IART ONE (14:45)
[2021-11-06] MEDS ORDERED: NITROGLYCERIN 200 MCG/2 ML SYRINGE FOR CATH/VASC LAB. IART ONE (14:45)
[2021-11-06] MEDS ORDERED: VERAPAMIL 5 MG/2 ML VIAL. IART ONE (14:45)
[2021-11-06] MEDS ORDERED: LIDOCAINE 1% PF 2 ML VIAL. INJ ONE (14:45)
[2021-11-06] MEDS: MIDAZOLAM 100mg/100ml NS BAG 100 ML IV PRN (15:39)
--- NOTE | 2021-11-06 16:01 | CARD ---
MR#: [id number] Date of Study: 11/06/2021 Ordering Physician: MONCHO AGUILAR, Referring Physician: MONCHO AGUILAR Tech: SHAYNA Bennett APPROVED REPORT Technologist: SHAYNA Bennett Nurse: Beth Davidson RN Procedure(s) performed: Left heart catheterization and selective coronary angiography via right trans radial approach Fluoro time: 2.6 min dose: 80.7 gycm2 contrast: 74cc visi moderate sedation: 14min INDICATION The indication(s) include : Cardiopulmonary secondary to ventricular tachycardia and non-STEMI. [facility] Clinical Frailty Scale [facility] Clinical Frailty Scale: Mildly Frail Heart Failure Heart Failure: Yes If Yes, Newly Diagnosed: Yes If Yes, HF Type: Systolic If Yes, NYHA Class: Class III CASE TECHNIQUE IV conscious sedation was used throughout procedure with appropriate monitoring and was performed in the presence of a registered nurse who was an independent trained observer other than the physician p erforming the procedure. During this case, Fluoroscopy and low osmolar contrast were used for imaging . Specimen(s) Removed: No Estimated Blood loss: 15 cc's. PROCEDURE NARRATIVE After explaining the risks, benefits and alternative options, informed consent was obtained from amilcar ent's family since he was intubated. Patient was brought to the cardiac [place] and right wrist was prepped and draped in the usual fashion after confirming a positive modified William's test. Arterial access was obtained in the right radial artery and a 6 [place] sheath was inserted. 6 [place] Andrea catheter was used to perform selective angiography of the left and right coronary arteries. LVEDP an d transaortic gradients were measured. Left ventriculography was not performed due to elevated EDP a nd 2D echo this admission showing LVEF 15 to 20%. Patient tolerated the procedure well. Hemostasis was achieved using TR band. There were no immediate complications. The following findings were note d. FINDINGS 1. Hemodynamics: Significantly elevated left ventricular end-diastolic pressure of 51 mmHg consisten t with acute combined systolic and diastolic heart failure. No pullback gradient across the aortic v alve. 2. Coronary angiography: a. The left main coronary artery arose from the left sinus of Valsalva, gave rise to the left anteri or descending and left circumflex arteries and did not show any significant stenosis. b. The left anterior descending showed 30% stenosis in the proximal segment and heavily calcified 90 % stenosis in the midsegment. c. The left circumflex artery showed 95% calcified stenosis in the proximal to mid segment. The hig h obtuse marginal branch which is a good caliber vessel showed tandem 60 and 80% stenoses in proximal to mid segment. d. The right coronary artery was a dominant vessel arising from the right sinus of Valsalva that israel wed 50% stenosis in the proximal segment and calcified 99% subtotal occlusion in the midsegment with [id number] collaterals. Conclusion 1. Severe three-vessel coronary artery disease as described above 2. Acute combined systolic and diastolic heart failure as evidenced by significantly elevated LVEDP of 51 mmHg Recommendations Cardiothoracic surgery referral for possible coronary artery bypass surgery Signed by : Moncho Aguilar, Electronically Approved : 11/06/2021 16:01:21
--- NOTE | 2021-11-06 17:06 | CARD ---
MR#: [id number] Date of Study: 11/06/2021 Ordering Physician: DIOMEDES HAWK, Referring Physician: DIOMEDES HAWK, Tech: Feng Agosto [facility] APPROVED REPORT EXAM: Two-dimensional and M-mode echocardiogram with Doppler and color Doppler. Other Information Quality : GoodHR: 81bpm Rhythm : NSR INDICATION S/P cardiac arrest RISK FACTORS Smoking 2D DIMENSIONS Left Atrium(2D)4.0 (1.6-4.0cm)IVSd1.0 (0.7-1.1cm) Aortic Root(2D)3.3 (2.0-3.7cm)LVDd7.2 (3.9-5.9cm) LVOT Diameter2.1 (1.8-2.4cm)PWd1.0 (0.7-1.1cm) LA Eppuky952 (18-58mL)LVDs6.7 (2.5-4.0cm) FS (%) 6.6 %SV38.4 ml LVEF(%)14.3 (>50%) Aortic Valve AoV Peak Je.126.6cm/sAoV VTI21.3cm AO Peak GR.6.4mmHgLVOT VTI 11.54cm AO Mean GR.4mmHg Mitral Valve MV E Mepsyfxf28.9cm/sMV E Peak Gr.4mmHg MV DECEL [id number] A Ilwvcobb79.0cm/s MV E Mean Gr.2mmHgE/A Ratio1.6 TDI Lateral E' P. V7.21cm/sMedial E' P. V4.44cm/s E/Lateral E'12.1E/Medial E'19.6 Pulmonary Valve PV Peak Puyzjthh53.7cm/s Tricuspid Valve TR P. Iyoeooli884xj/sTR Peak Gr.16mmHg Pulmonary Vein S1 Dfultrcd02.2cm/sS2 Yhkspcvq62.94cm/s D2 Qhawkdjj25.9cm/s LEFT VENTRICLE The left ventricle is normal size. There is normal left ventricular wall thickness. The left ventricu lar systolic function is severely impaired. The Ejection Fraction is 15-20%. There is global hypokine sis of the left ventricle. Transmitral Doppler flow pattern is Grade II-pseudonormal filling dynamics . No left ventricle thrombus noted on this study. There is no ventricular septal defect visualized. T here is no left ventricular aneurysm. There is no mass noted in the left ventricle. RIGHT VENTRICLE The right ventricle is normal size. There is normal right ventricular wall thickness. The right ventr icular systolic function is normal. ATRIA The left atrium is moderately dilated. The right atrium size is normal. The interatrial septum is int act with no evidence for an atrial septal defect or patent foramen ovale as noted on 2-D or Doppler i maging. AORTIC VALVE The aortic valve is mildly sclerotic. Doppler and Color Flow revealed trace aortic regurgitation. The re is no significant aortic valvular stenosis. There is no aortic valvular vegetation. MITRAL VALVE The mitral valve is thickened but opens well. There is no evidence of mitral valve prolapse. There is no mitral valve stenosis. Doppler and Color-flow revealed mild to moderate mitral regurgitation. TRICUSPID VALVE The tricuspid valve is normal in structure and function. Doppler and Color Flow revealed mild tricusp id regurgitation. There is no tricuspid valve prolapse or vegetation. There is no tricuspid valve dai nosis. PULMONIC VALVE The pulmonary valve is normal in structure and function. There is trivial pulmonic regurgitation. The re is no pulmonic valvular stenosis. GREAT VESSELS The aortic root is normal in size. The ascending aorta is normal in size. The pulmonary artery is nor mal. The IVC is dilated with blunted inspiratory response. PERICARDIAL EFFUSION There is no pleural effusion. There is no evidence of significant pericardial effusion. Critical Notification Critical Value: No <Conclusion> The left ventricular systolic function is severely impaired. The Ejection Fraction is 15-20%. Transmitral Doppler flow pattern is Grade II-pseudonormal filling dynamics. Mild to moderate mitral regurgitation. Mild tricuspid regurgitation. There is no evidence of significant pericardial effusion. Signed by : Gavin Potter, Electronically Approved : 11/06/2021 17:06:35
[2021-11-06] MEDS: MILRINONE 20MG/100ML PREMIX 100 ML IV PRN (17:25)
[2021-11-06] MEDS: FUROSEMIDE 40 MG/4 ML VIAL. IVP SCH (20:38)
[2021-11-07] VITALS (26 sets, daily range): BP systolic 74–123; BP diastolic 54–83
[2021-11-07 00:07] LABS: HEMOGLOBIN A1C 5.5 % (4.8-5.6)
[2021-11-07] MEDS: AMIODARONE 450 MG in IV DEXTROSE 5% 250 ML IV PRN ×2 (02:30→21:16)
--- NOTE | 2021-11-07 03:05 | CONS ---
DATE OF CONSULTATION: 11/06/2021 ATTENDING PHYSICIAN: Dr. Mortensen. CONSULTING PHYSICIAN: Francisco Samuels MD REASON FOR CONSULTATION: The patient is seen in pulmonary consultation at the request of Dr. Mortensen for [id number] cardiopulmonary arrest. HISTORY OF PRESENT ILLNESS: The patient is a 51-year-old who had a cardiac arrest out of the hospital. There was a witnessed cardiac arrest at the local [facility]. The patient was found to have V-tach by first responders. He was shocked, given 1 amp of epinephrine, achieved spontaneous circulation. He was intubated and transferred to the Emergency Department. He was admitted, placed on mechanical ventilation. This morning, during my evaluation, he is sedated, hemodynamically has been stable. His blood gas revealed a pH of 7.31, PaCO2 of 32, pO2 115. White count was slightly elevated. Hemoglobin and hematocrit were noted. Troponin level was markedly elevated. Electrolytes: Sodium was low, potassium was low. BUN and creatinine were normal. UA was noted. Toxicology screen was positive for alcohol. PAST MEDICAL HISTORY: Unknown. So far, there is nothing in the chart. PAST SURGICAL HISTORY: Unknown. ALLERGIES: No known drug allergies. CURRENT MEDICATIONS: List was reviewed. The patient is sedated lightly, but he is able to move all extremities to stimuli. In addition, he is on amiodarone, heparin. PHYSICAL EXAMINATION: VITAL SIGNS: Stable. O2 saturation was greater than 92%, currently on mechanical support. He has been afebrile. HEENT: Eyes: The sclerae were nonicteric. NECK: Jugular venous distention was not elevated. No lymphadenopathy. CHEST: Full expansion. LUNGS: Rales anteriorly. CARDIOVASCULAR: Regular rate and rhythm with S1, S2, no S3. ABDOMEN: Soft, nontender, nondistended. EXTREMITIES: No clubbing, cyanosis or pitting edema. NEUROLOGIC: The patient was sedated lightly, but upon painful stimulation moved all extremities. LABORATORY DATA: As indicated above. Urine drug screen is indicated above. Chest x-ray was reviewed, revealing some interstitial edema. IMPRESSION: 1. Acute hypoxemic respiratory failure secondary to [id number]-buvkowwl cardiopulmonary arrest. Quu-sw-[id number] cardiopulmonary arrest secondary to V-tach, status post 1 time defibrillation, 1 amp of epinephrine. 2. Elevated troponin, suspect related to CPR and acute non-ST segment elevation myocardial infarction. 3. Abnormal x-ray, compatible with pulmonary edema. 4. Acute diastolic heart failure. 5. Hyponatremia. 6. Hypokalemia. PLAN: 1. We will continue mechanical support at current vent settings. 2. We will await Cardiology input, if no plans to proceed with diagnostic cardiac catheterization, will proceed with possible extubation. 3. Continue heparin. 4. Continue IV amiodarone. 5. Diurese per Cardiology. 6. Monitor labs. 7. Replace potassium. I do appreciate the privilege in sharing in the patient's care. Total cumulative critical care time of 50 minutes. IRINA/BEAU/GUILLAUME DR: Katie TID: [id number]
[2021-11-07 04:42] LABS: BASO % 0 % (0-3); EOS % 0 % (0-3); HEMATOCRIT 35.3 % (39.0-53.0); HEMOGLOBIN 11.7 g/dL (13.0-17.5); LYMPH # 1.6 x10^3/uL (1.0-4.8); LYMPH % 11 % (24-48); MEAN CORPUSCULAR HEMOGLOBIN 31 pg (25-35); MEAN CORPUSCULAR HGB CONC 33 g/dL (31-37); MEAN CORPUSCULAR VOLUME 94 fL (79-100); MONO # 1.7 x10^3/uL (0.0-1.1); MONO % 12 % (0-9); NEUT # 11.1 x10^3/uL (1.8-7.7); NEUT % 77 % (31-73); PLATELET COUNT 329 x10^3/uL (140-400); RED BLOOD COUNT 3.76 x10^6/uL (4.30-5.70); WHITE BLOOD COUNT 14.4 x10^3/uL (4.0-11.0)
[2021-11-07 04:54] LABS: ALBUMIN 2.7 g/dL (3.4-5.0); ALBUMIN/GLOBULIN RATIO 0.8 (1.0-1.7); GFR 35.4; POTASSIUM 4.4 mmol/L (3.5-5.1); TOTAL BILIRUBIN 0.6 mg/dL (0.2-1.0); TOTAL PROTEIN 6.3 g/dL (6.4-8.2)
[2021-11-07 08:22] LABS: BASE EXCESS ABG -3 mmol/L (-3-3); HCO3 ABG 23 mmol/L (21-28); PCO2 ABG 43 mmHg (35-46); PO2 ABG 79 mmHg (75-108); SAT O2 ABG 94 % (92-99)
[2021-11-07] MEDS: MIDAZOLAM 100mg/100ml NS BAG 100 ML IV PRN ×2 (08:22→21:15)
[2021-11-07 08:27] LABS: FIO2 ABG 40
--- NOTE | 2021-11-07 09:32 | PDOC ---
[employer] PROGRESS NOTE Date of Service DOS: DATE: 11/07/21 TIME: 09:31 Chief Complaint Chief Complaint Ventricular tachycardia arrest - on amiodarone gtt. Awaiting cardiac evaluation Acute diastolic CHF - due to cardiac arrest, need echo to assess systolic function Hyponatremia - likely hypervolemic, possibly alcohol related Hypokalemia - replace Hyperglycemia - A1c 5.5, likely was stress related Respiratory arrest - due to cardiac arrest. Pulmonology consulted. Seen on AC mode FEN - NPO PPX - heparin FULL CODE Dispo - ICU cc time 33 minutes History of Present Illness History of Present Illness Mr Goel is a 51 year old male brought in to ED on 11/05/2021 via EMS after cardiac arrest. Patient had a witnessed cardiac arrest while dancing at a local [employer]. Patient was found to be in V. tach by first responders. Patient was shocked and given 1 of epi. Patient achieved ROSC. Patient was intubated in the field and brought into the hospital. Labs with WBC 11.3, Hb 13.5, platelets 330, NA 132, K3 BUN 5, CR 1, glucose 164, calcium 8.1, albumin 3.4, LFTs otherwise within normal laboratory limits, NT proBNP 5695, high-sensitivity troponin is 76 urine drug screen positive for ethyl alcohol, urinalysis bland, INR 1.2, D-dimer 19.35, ABG on 60% FiO2 was 7.31/32/158. Chest radiograph well-positioned ET tube and increased interstitial markings. Noncontrast CT head with no acute findings EKG sinus rate 87 bpm incomplete left bundle branch block, QRS 140, QTc 506, PVCs noted. No significant ST elevation or T WI. Admitted to ICU on amiodarone and heparin GTT 11/07: Seen in ICU on vent. ABG 7.3 on 40% FiO2 PEEP of 5, CR up to 2. Status post coronary angiogram on 11/06/2021 with severe three-vessel disease with LAD 90% stenosis mid segment left circumflex 95% stenosis LAD and obtuse marginal 80% stenosis RCA 99% subtotal occlusion mid segment. Daughter discussed with social work preference to transfer to CT surgery capable facility either [facility] or [facility] Vitals/I&O Vitals/I&O: Vital Signs Date Time Temp Pulse Resp B/P (MAP) Pulse Ox O2 Delivery O2 Flow Rate FiO2 11/07/21 07:40 100 Ventilator 11/07/21 06:00 83 20 108/69 11/07/21 04:00 98.6 98.6 I & O 11/06/21 11/06/21 11/07/21 15:00 23:00 07:00 Intake Total 0 ml 714 ml 475 ml Output Total 100 ml 450 ml 1075 ml Balance -100 ml 264 ml -600 ml Physical Exam General: No acute distress Heart: Regular rate Abdomen: Soft Extremities: No edema Skin: No significant lesion Labs Labs: Laboratory Tests Test 11/06/21 16:20 11/06/21 21:50 11/07/21 03:50 11/07/21 07:40 Heparin Anti-Xa Act, Unfractionated 0.51 IU/mL (0.30-0.70) 0.22 IU/mL (0.30-0.70) 0.21 IU/mL (0.30-0.70) White Blood Count 14.4 x10^3/uL (4.0-11.0) Red Blood Count 3.76 x10^6/uL (4.30-5.70) Hemoglobin 11.7 g/dL (13.0-17.5) Hematocrit 35.3 % (39.0-53.0) Mean Corpuscular Volume 94 fL (79-100) Mean Corpuscular Hemoglobin 31 pg (25-35) Mean Corpuscular Hemoglobin Concent 33 g/dL (31-37) Red Cell Distribution Width 16.0 % (11.5-14.5) Platelet Count 329 x10^3/uL (140-400) Neutrophils (%) (Auto) 77 % (31-73) Lymphocytes (%) (Auto) 11 % (24-48) Monocytes (%) (Auto) 12 % (0-9) Eosinophils (%) (Auto) 0 % (0-3) Basophils (%) (Auto) 0 % (0-3) Neutrophils # (Auto) 11.1 x10^3/uL (1.8-7.7) Lymphocytes # (Auto) 1.6 x10^3/uL (1.0-4.8) Monocytes # (Auto) 1.7 x10^3/uL (0.0-1.1) Eosinophils # (Auto) 0.0 x10^3/uL (0.0-0.7) Basophils # (Auto) 0.0 x10^3/uL (0.0-0.2) Sodium Level 131 mmol/L (136-145) Potassium Level 4.4 mmol/L (3.5-5.1) Chloride Level 98 mmol/L (98-107) Carbon Dioxide Level 25 mmol/L (21-32) Anion Gap 8 (6-14) Blood Urea Nitrogen 22 mg/dL (8-26) Creatinine 2.0 mg/dL (0.7-1.3) Estimated GFR (Cockcroft-Gault) 35.4 BUN/Creatinine Ratio 11 (6-20) Glucose Level 113 mg/dL (70-99) Calcium Level 8.0 mg/dL (8.5-10.1) Total Bilirubin 0.6 mg/dL (0.2-1.0) Aspartate Amino Transf (AST/SGOT) 69 U/L (15-37) Alanine Aminotransferase (ALT/SGPT) 32 U/L (16-63) Alkaline Phosphatase 78 U/L (46-116) Total Protein 6.3 g/dL (6.4-8.2) Albumin 2.7 g/dL (3.4-5.0) Albumin/Globulin Ratio 0.8 (1.0-1.7) O2 Saturation 94 % (92-99) Arterial Blood pH 7.34 (7.35-7.45) Arterial Blood pCO2 at Patient Temp 43 mmHg (35-46) Arterial Blood pO2 at Patient Temp 79 mmHg (75-108) Arterial Blood HCO3 23 mmol/L (21-28) Arterial Blood Base Excess -3 mmol/L (-3-3) FiO2 40 Assessment and Plan Assessmemt and Plan Problems Medical Problems: (1) Cardiac arrest Status: Acute Comment Review of Relevant I have reviewed the following items meka (where applicable) has been applied. Medications: Current Medications Medications (Trade) Dose Ordered Sig/Claude Route PRN Reason Start Time Stop Time Status Last Admin Dose Admin Norepinephrine Bitartrate 8 mg/ Dextrose 258 ml @ 22.64 mls/ hr CONT PRN IV PER PROTOCOL 11/06/21 10:00 11/06/21 10:05 Aspirin (Aspirin Chewable) 81 mg [id number] PO 11/06/21 11:00 11/06/21 11:00 Nitroglycerin (Nitroglycerin) 200 mcg 1X ONCE IART 11/06/21 14:45 11/06/21 14:46 DC 11/06/21 14:45 Verapamil HCl (Verapamil) 2.5 mg 1X ONCE IART 11/06/21 14:45 11/06/21 14:46 DC 11/06/21 14:45 Heparin Sodium (Porcine) (Heparin Sodium) 2,500 unit 1X ONCE IART 11/06/21 14:45 11/06/21 14:46 DC 11/06/21 14:45 Heparin Sodium/ Sodium Chloride (HEPARIN for ARTERIAL LINE FLUSH) 1,000 unit 1X ONCE IART 11/06/21 14:45 11/06/21 14:46 DC 11/06/21 14:45 Iodixanol (Visipaque 320) 100 ml 1X ONCE IART 11/06/21 14:45 11/06/21 14:46 DC 11/06/21 14:45 Lidocaine HCl (Xylocaine-Mpf 1% 2ml Vial) 2 ml 1X ONCE INJ 11/06/21 14:45 11/06/21 14:46 DC 11/06/21 14:45 Midazolam HCl 100 ml @ 1 mls/hr CONT PRN IV SEDATION 11/06/21 15:30 11/07/21 08:22 Furosemide (Lasix) 40 mg [id number] IVP 11/06/21 20:00 11/06/21 20:38 Milrinone Lactate/ Dextrose 100 ml @ 2.926 mls/ hr CONT PRN IV SEE I/O RECORD 11/06/21 17:00 11/06/21 17:25 Amiodarone HCl 450 mg/Dextrose 259 ml @ 16.7 mls/hr CONT PRN PRN IV ARRYTHMIA 11/07/21 02:15 11/08/21 02:14 11/07/21 02:30 Justifications for Admission Other Justification YEHUDA HAMM MD Nov 07, 2021 09:32
--- NOTE | 2021-11-07 10:18 | PDOC ---
PULMONARY PROGRESS NOTES DATE: 11/07/21 TIME: 10:14 Subjective F patient remains on assist control mode. Remains sedated. S/p cardiac cath with severe three-vessel coronary artery disease and ejection fraction of 15%. On milrinone, Levophed and amiodarone Vitals Vital Signs Date Time Temp Pulse Resp B/P (MAP) Pulse Ox O2 Delivery O2 Flow Rate FiO2 11/07/21 09:41 100 Ventilator 11/07/21 06:00 83 20 108/69 11/07/21 04:00 98.6 98.6 Comments Remains on mechanical ventilation. General: No acute distress Lungs: Clear Cardiovascular: S1 Abdomen: Soft Extremities: No Edema Skin: Warm Labs Laboratory Tests Test 11/05/21 22:39 11/05/21 22:51 11/06/21 05:25 11/06/21 07:20 White Blood Count 11.3 x10^3/uL (4.0-11.0) Red Blood Count 4.26 x10^6/uL (4.30-5.70) Hemoglobin 13.5 g/dL (13.0-17.5) Hematocrit 40.8 % (39.0-53.0) Mean Corpuscular Volume 96 fL (79-100) Mean Corpuscular Hemoglobin 32 pg (25-35) Mean Corpuscular Hemoglobin Concent 33 g/dL (31-37) Red Cell Distribution Width 16.0 % (11.5-14.5) Platelet Count 330 x10^3/uL (140-400) Neutrophils (%) (Auto) 50 % (31-73) Lymphocytes (%) (Auto) 41 % (24-48) Monocytes (%) (Auto) 6 % (0-9) Eosinophils (%) (Auto) 1 % (0-3) Basophils (%) (Auto) 1 % (0-3) Neutrophils # (Auto) 5.7 x10^3/uL (1.8-7.7) Lymphocytes # (Auto) 4.7 x10^3/uL (1.0-4.8) Monocytes # (Auto) 0.7 x10^3/uL (0.0-1.1) Eosinophils # (Auto) 0.2 x10^3/uL (0.0-0.7) Basophils # (Auto) 0.1 x10^3/uL (0.0-0.2) Prothrombin Time 14.9 SEC (11.7-14.0) Prothromb Time International Ratio 1.2 (0.8-1.1) D-Dimer (Carole) 19.35 ug/mlFEU (0.00-0.50) Sodium Level 132 mmol/L (136-145) 133 mmol/L (136-145) Potassium Level 3.0 mmol/L (3.5-5.1) 4.7 mmol/L (3.5-5.1) Chloride Level 97 mmol/L (98-107) 98 mmol/L (98-107) Carbon Dioxide Level 22 mmol/L (21-32) 17 mmol/L (21-32) Anion Gap 13 (6-14) 18 (6-14) Blood Urea Nitrogen 5 mg/dL (8-26) 11 mg/dL (8-26) Creatinine 1.0 mg/dL (0.7-1.3) 1.5 mg/dL (0.7-1.3) Estimated GFR (Cockcroft-Gault) 78.8 49.3 BUN/Creatinine Ratio 5 (6-20) 7 (6-20) Glucose Level 164 mg/dL (70-99) 126 mg/dL (70-99) Calcium Level 8.1 mg/dL (8.5-10.1) 7.9 mg/dL (8.5-10.1) Total Bilirubin 0.2 mg/dL (0.2-1.0) 0.3 mg/dL (0.2-1.0) Aspartate Amino Transf (AST/SGOT) 30 U/L (15-37) 78 U/L (15-37) Alanine Aminotransferase (ALT/SGPT) 34 U/L (16-63) 40 U/L (16-63) Alkaline Phosphatase 94 U/L (46-116) 85 U/L (46-116) Troponin I High Sensitivity 76 ng/L (4-75) 82318 ng/L (4-75) RB-Qhu-H-Type Natriuretic Peptide 5695 pg/mL (0-124) Total Protein 7.3 g/dL (6.4-8.2) 6.4 g/dL (6.4-8.2) Albumin 3.4 g/dL (3.4-5.0) 3.3 g/dL (3.4-5.0) Albumin/Globulin Ratio 0.9 (1.0-1.7) 1.1 (1.0-1.7) Urine Collection Type Unknown Urine Color (Auto) Colorless Urine Turbidity Hazy Urine pH (Auto) 6.0 (<5.0-8.0) Urine Specific [place] 1.003 (1.000-1.030) Urine Protein (Auto) Negative mg/dL (Negative) Urine Glucose (Auto)(UA) Negative mg/dL (Negative) Urine Ketones (Auto) Negative mg/dL (Negative) Urine Blood (Auto) Negative (Negative) Urine Nitrite (Auto) Negative (Negative) Urine Bilirubin (Auto) Negative (Negative) Urine Urobilinogen (Auto) Normal mg/dL (Normal) Urine Leukocyte Esterase (Auto) Negative (Negative) Urine RBC 1-2 /HPF (0-2) Urine WBC 1-4 /HPF (0-4) Urine Squamous Epithelial Cells Few /LPF Urine Bacteria 0 /HPF (0-FEW) Urine Opiates Screen (NEG) Urine Methadone Screen Neg (NEG) Urine Barbiturates Neg (NEG) Urine Phencyclidine Screen Neg (NEG) Urine Amphetamine/Methamphetamine Neg (NEG) Urine Benzodiazepines Screen Neg (NEG) Urine Cocaine Screen Neg (NEG) Urine Cannabinoids Screen Neg (NEG) Urine Ethyl Alcohol Pos (NEG) O2 Saturation 98 % (92-99) Arterial Blood pH 7.31 (7.35-7.45) Arterial Blood pCO2 at Patient Temp 32 mmHg (35-46) Arterial Blood pO2 at Patient Temp 115 mmHg (75-108) Arterial Blood HCO3 16 mmol/L (21-28) Arterial Blood Base Excess -9 mmol/L (-3-3) FiO2 60 Heparin Anti-Xa Act, Unfractionated < 0.10 IU/mL (0.30-0.70) Hemoglobin A1c 5.5 % (4.8-5.6) Magnesium Level 1.9 mg/dL (1.8-2.4) Triglycerides Level 106 mg/dL (0-150) Cholesterol Level 187 mg/dL (0-200) LDL Cholesterol, Calculated 126 mg/dL (0-100) VLDL Cholesterol, Calculated 21 mg/dL (0-40) Non-HDL Cholesterol Calculated 147 mg/dL (0-129) HDL Cholesterol 40 mg/dL (40-60) Cholesterol/HDL Ratio 4.7 Thyroid Stimulating Hormone (TSH) 0.630 uIU/mL (0.358-3.74) Test 11/06/21 16:20 11/06/21 21:50 11/07/21 03:50 11/07/21 07:40 Heparin Anti-Xa Act, Unfractionated 0.51 IU/mL (0.30-0.70) 0.22 IU/mL (0.30-0.70) 0.21 IU/mL (0.30-0.70) White Blood Count 14.4 x10^3/uL (4.0-11.0) Red Blood Count 3.76 x10^6/uL (4.30-5.70) Hemoglobin 11.7 g/dL (13.0-17.5) Hematocrit 35.3 % (39.0-53.0) Mean Corpuscular Volume 94 fL (79-100) Mean Corpuscular Hemoglobin 31 pg (25-35) Mean Corpuscular Hemoglobin Concent 33 g/dL (31-37) Red Cell Distribution Width 16.0 % (11.5-14.5) Platelet Count 329 x10^3/uL (140-400) Neutrophils (%) (Auto) 77 % (31-73) Lymphocytes (%) (Auto) 11 % (24-48) Monocytes (%) (Auto) 12 % (0-9) Eosinophils (%) (Auto) 0 % (0-3) Basophils (%) (Auto) 0 % (0-3) Neutrophils # (Auto) 11.1 x10^3/uL (1.8-7.7) Lymphocytes # (Auto) 1.6 x10^3/uL (1.0-4.8) Monocytes # (Auto) 1.7 x10^3/uL (0.0-1.1) Eosinophils # (Auto) 0.0 x10^3/uL (0.0-0.7) Basophils # (Auto) 0.0 x10^3/uL (0.0-0.2) Sodium Level 131 mmol/L (136-145) Potassium Level 4.4 mmol/L (3.5-5.1) Chloride Level 98 mmol/L (98-107) Carbon Dioxide Level 25 mmol/L (21-32) Anion Gap 8 (6-14) Blood Urea Nitrogen 22 mg/dL (8-26) Creatinine 2.0 mg/dL (0.7-1.3) Estimated GFR (Cockcroft-Gault) 35.4 BUN/Creatinine Ratio 11 (6-20) Glucose Level 113 mg/dL (70-99) Calcium Level 8.0 mg/dL (8.5-10.1) Total Bilirubin 0.6 mg/dL (0.2-1.0) Aspartate Amino Transf (AST/SGOT) 69 U/L (15-37) Alanine Aminotransferase (ALT/SGPT) 32 U/L (16-63) Alkaline Phosphatase 78 U/L (46-116) Total Protein 6.3 g/dL (6.4-8.2) Albumin 2.7 g/dL (3.4-5.0) Albumin/Globulin Ratio 0.8 (1.0-1.7) O2 Saturation 94 % (92-99) Arterial Blood pH 7.34 (7.35-7.45) Arterial Blood pCO2 at Patient Temp 43 mmHg (35-46) Arterial Blood pO2 at Patient Temp 79 mmHg (75-108) Arterial Blood HCO3 23 mmol/L (21-28) Arterial Blood Base Excess -3 mmol/L (-3-3) FiO2 40 Laboratory Tests Test 11/06/21 16:20 11/06/21 21:50 11/07/21 03:50 11/07/21 07:40 Heparin Anti-Xa Act, Unfractionated 0.51 IU/mL (0.30-0.70) 0.22 IU/mL (0.30-0.70) 0.21 IU/mL (0.30-0.70) White Blood Count 14.4 x10^3/uL (4.0-11.0) Red Blood Count 3.76 x10^6/uL (4.30-5.70) Hemoglobin 11.7 g/dL (13.0-17.5) Hematocrit 35.3 % (39.0-53.0) Mean Corpuscular Volume 94 fL (79-100) Mean Corpuscular Hemoglobin 31 pg (25-35) Mean Corpuscular Hemoglobin Concent 33 g/dL (31-37) Red Cell Distribution Width 16.0 % (11.5-14.5) Platelet Count 329 x10^3/uL (140-400) Neutrophils (%) (Auto) 77 % (31-73) Lymphocytes (%) (Auto) 11 % (24-48) Monocytes (%) (Auto) 12 % (0-9) Eosinophils (%) (Auto) 0 % (0-3) Basophils (%) (Auto) 0 % (0-3) Neutrophils # (Auto) 11.1 x10^3/uL (1.8-7.7) Lymphocytes # (Auto) 1.6 x10^3/uL (1.0-4.8) Monocytes # (Auto) 1.7 x10^3/uL (0.0-1.1) Eosinophils # (Auto) 0.0 x10^3/uL (0.0-0.7) Basophils # (Auto) 0.0 x10^3/uL (0.0-0.2) Sodium Level 131 mmol/L (136-145) Potassium Level 4.4 mmol/L (3.5-5.1) Chloride Level 98 mmol/L (98-107) Carbon Dioxide Level 25 mmol/L (21-32) Anion Gap 8 (6-14) Blood Urea Nitrogen 22 mg/dL (8-26) Creatinine 2.0 mg/dL (0.7-1.3) Estimated GFR (Cockcroft-Gault) 35.4 BUN/Creatinine Ratio 11 (6-20) Glucose Level 113 mg/dL (70-99) Calcium Level 8.0 mg/dL (8.5-10.1) Total Bilirubin 0.6 mg/dL (0.2-1.0) Aspartate Amino Transf (AST/SGOT) 69 U/L (15-37) Alanine Aminotransferase (ALT/SGPT) 32 U/L (16-63) Alkaline Phosphatase 78 U/L (46-116) Total Protein 6.3 g/dL (6.4-8.2) Albumin 2.7 g/dL (3.4-5.0) Albumin/Globulin Ratio 0.8 (1.0-1.7) O2 Saturation 94 % (92-99) Arterial Blood pH 7.34 (7.35-7.45) Arterial Blood pCO2 at Patient Temp 43 mmHg (35-46) Arterial Blood pO2 at Patient Temp 79 mmHg (75-108) Arterial Blood HCO3 23 mmol/L (21-28) Arterial Blood Base Excess -3 mmol/L (-3-3) FiO2 40 Comments Chest x-ray done on 11/05/2021 reviewed. Evidence of mild congestive heart failure Impression . 1. Acute hypoxemic respiratory failure secondary to [id number]-swjpujza cardiopulmonary arrest. Fok-cm-xkpnzhqa cardiopulmonary arrest secondary to V-tach, status post 1 time defibrillation, 1 amp of epinephrine. 2. Elevated troponin, suspect related to CPR and acute non-ST segment elevation myocardial infarction. 3. Abnormal x-ray, compatible with pulmonary edema. 4. Acute diastolic heart failure. 5. Hyponatremia. 6. Hypokalemia. 7. Status post cardiac cath with severe three-vessel coronary artery disease and ejection fraction of 15%. 8. Cardiogenic shock, on low-dose Levophed Plan . 1. We will continue mechanical support at current vent settings. Currently down to 40% FiO2. 2. Cardiac findings reviewed. Patient will need to be transferred to another facility for coronary artery bypass. Cardiology is following 3. Continue heparin. 4. Continue IV amiodarone. 5. Diurese per Cardiology. 6. Monitor labs. 7. Replace potassium. 8. Continue with Levophed. 9. Discussed with RN and RT. Patient remains critically ill. Await cardiology recommendation regarding possible transfer to different facility for bypass evaluation CCT 30 MIN YOHANA PERKINS MD Nov 07, 2021 10:18
[2021-11-07] MEDS: ASPIRIN CHEWABLE 81 MG TABLET. PO SCH (10:30)
[2021-11-07] MEDS: FUROSEMIDE 40 MG/4 ML VIAL. IVP SCH ×2 (10:30→14:39)
[2021-11-07] MEDS: POLYETHYLENE GLYCOL 3350 17 GM PACKET. PO SCH (10:30)
--- NOTE | 2021-11-07 11:11 | RAD ---
XR CHEST 1V History: Reason: CENTRAL LINE PLACEMENT / Spl. Instructions: / History: Comparison: November 07, 2021 Findings: Unchanged endotracheal tube. Interval retraction of enteric tube with tip overlying the gastroesophag eal junction. Interval placement right IJ central line with tip overlying the right atrium. Increased linear right basilar opacity. Increased left retrocardiac opacity. No pneumothorax. Impression: 1. Interval placement right IJ central line. No pneumothorax. 2. Increased bibasilar opacities, may represent atelectasis. Recommend follow-up. 3. Interval retraction of enteric tube. Recommend advancement. Electronically signed by: Ifeanyi Patel DO (11/07/2021 11:09 AM) [id number]
--- NOTE | 2021-11-07 12:27 | PDOC ---
MARIOLA MURILLO [employer]IBILITY 11/07/21 1227: CARDIO Progress Notes Date and Time Date of Service 11/07/2021 Time of Evaluation 1215 Subjective Subjective: Other (intubated) Vitals Vitals Vital Signs Date Time Temp Pulse Resp B/P (MAP) Pulse Ox O2 Delivery O2 Flow Rate FiO2 11/07/21 11:42 100 Ventilator 11/07/21 06:00 83 20 108/69 11/07/21 04:00 98.6 98.6 Weight Weight [ ] Input and Output Intake and Output Intake and Output 11/07/21 07:00 Intake Total 1189 ml Output Total 1625 ml Balance -436 ml Intake Oral 0 ml IV Total 1189 ml Output Urine Total 1625 ml Laboratory Labs Laboratory Tests Test 11/06/21 16:20 11/06/21 21:50 11/07/21 03:50 11/07/21 07:40 Heparin Anti-Xa Act, Unfractionated 0.51 IU/mL (0.30-0.70) 0.22 IU/mL (0.30-0.70) 0.21 IU/mL (0.30-0.70) White Blood Count 14.4 x10^3/uL (4.0-11.0) Red Blood Count 3.76 x10^6/uL (4.30-5.70) Hemoglobin 11.7 g/dL (13.0-17.5) Hematocrit 35.3 % (39.0-53.0) Mean Corpuscular Volume 94 fL (79-100) Mean Corpuscular Hemoglobin 31 pg (25-35) Mean Corpuscular Hemoglobin Concent 33 g/dL (31-37) Red Cell Distribution Width 16.0 % (11.5-14.5) Platelet Count 329 x10^3/uL (140-400) Neutrophils (%) (Auto) 77 % (31-73) Lymphocytes (%) (Auto) 11 % (24-48) Monocytes (%) (Auto) 12 % (0-9) Eosinophils (%) (Auto) 0 % (0-3) Basophils (%) (Auto) 0 % (0-3) Neutrophils # (Auto) 11.1 x10^3/uL (1.8-7.7) Lymphocytes # (Auto) 1.6 x10^3/uL (1.0-4.8) Monocytes # (Auto) 1.7 x10^3/uL (0.0-1.1) Eosinophils # (Auto) 0.0 x10^3/uL (0.0-0.7) Basophils # (Auto) 0.0 x10^3/uL (0.0-0.2) Sodium Level 131 mmol/L (136-145) Potassium Level 4.4 mmol/L (3.5-5.1) Chloride Level 98 mmol/L (98-107) Carbon Dioxide Level 25 mmol/L (21-32) Anion Gap 8 (6-14) Blood Urea Nitrogen 22 mg/dL (8-26) Creatinine 2.0 mg/dL (0.7-1.3) Estimated GFR (Cockcroft-Gault) 35.4 BUN/Creatinine Ratio 11 (6-20) Glucose Level 113 mg/dL (70-99) Calcium Level 8.0 mg/dL (8.5-10.1) Total Bilirubin 0.6 mg/dL (0.2-1.0) Aspartate Amino Transf (AST/SGOT) 69 U/L (15-37) Alanine Aminotransferase (ALT/SGPT) 32 U/L (16-63) Alkaline Phosphatase 78 U/L (46-116) Total Protein 6.3 g/dL (6.4-8.2) Albumin 2.7 g/dL (3.4-5.0) Albumin/Globulin Ratio 0.8 (1.0-1.7) O2 Saturation 94 % (92-99) Arterial Blood pH 7.34 (7.35-7.45) Arterial Blood pCO2 at Patient Temp 43 mmHg (35-46) Arterial Blood pO2 at Patient Temp 79 mmHg (75-108) Arterial Blood HCO3 23 mmol/L (21-28) Arterial Blood Base Excess -3 mmol/L (-3-3) FiO2 40 Test 11/07/21 10:10 11/07/21 11:25 Heparin Anti-Xa Act, Unfractionated 0.26 IU/mL (0.30-0.70) SARS-CoV-2 Antigen (Rapid) Negative (NEGATIVE) Physical Exam HEENT: Neck Supple W Full Motion Chest: Symmetric LUNGS: Other (intubated with MV) Heart: S1S2, RRR (SR) Abdomen: Soft N/T Extremities: No Calf Tenderness Neurology: other (sedated) Assessment Assessment 1. OOH Cardiac arrest, witness; EMS noted in [place]- strips not available. ROSC achieved follow 1 round of CPR and dose of Epi. On amiodarone gtt. No further a rrhythmias 2. Acute respiratory failure; secondary to above. intubated with MV 3. NSTEMI; trop highest 11,543, LHC revealed severe 3VD 4. Severe cardiomyopathy; preliminary echo with LVEF near 15% 5. Cardiogenic shock; requiring pressor support 6. TUNDE 7. Hypokalemia; replaced 8. ETOH misuse 9. Tobaccosim 10. Acute combined diastolic/systolic CHF Recommendations Continue heparin gtt. ASA GI prophylaxis Amidoarone for rhythm maintenance. Pressor as warranted on levophed Milrinone, lasix therapy High risk but will need CABG. Awaiting possible transfer to [facility] Justicifation of Admission Dx: Justifications for Admission: Justification of Admission Dx: Yes MONCHO AGUILAR MD 11/07/21 1805: CARDIO Progress Notes Assessment Assessment Patient seen and examined. Agree with [facility]'s assessment and plan. No further VT/VF noted on telemetry. Cardiac catheterization yesterday showed severe three-vessel coronary artery disease. Continue inotropic support with milrinone infusion and diuresis for acute on chronic systolic and diastolic heart failure Continue ventilator weaning attempts per pulmonary team Plan for transfer to [facility] for possible coronary artery bypass surgery, preferably after extubation MARIOLA MURILLO APRN Nov 07, 2021 12:27 MONCHO AGUILAR MD Nov 07, 2021 18:05
[2021-11-07] MEDS ORDERED: PANTOPRAZOLE IV PUSH 40 MG VIAL. IVP ONE (13:00)
--- NOTE | 2021-11-07 13:26 | NUR ---
SS following for discharge planning. SS reviewed pt chart and discussed with pt RN. Pt is currently on the vent. Cardiology requesting transfer to [facility] surgeon for CABG. SS spoke with pt's daughter via phone today and pt's daughter reporting that she is okay with transfer to [facility]. Pt's daughter brought insurance cards to hospital. Request for transfer made to [facility] transfer team, ; fax [phone]. Records faxed as requested. Currently awaiting acceptance decision. Pt's RN notified. SS will continue to follow for discharge planning.
--- NOTE | 2021-11-07 14:11 | RAD ---
11/07/2021 Procedure: Ultrasound-guided placement of a right internal jugular triple-lumen central venous cathet er Indication: Patient critically ill. Multiple IV infusions. Emergent central venous access requested b y the ICU. Consent: The procedure was explained in its entirety to the patient or the patients designated repres entative by a member of the treatment team, including a discussion of the risks, benefits and commonl y accepted alternatives to the procedure, as well as the expected consequences of no therapy whatsoev er. Discussion of the risks included, but was not limited to, those that are most frequent and thos e that are rare but possibly severe or life-threatening, as well as the possibility of unforeseen com plications. Sterility: The patient was prepped and draped using maximum sterile technique, including the use of: Current guideline approved cutaneous antisepsis, a large sterile sheet to establish a sterile field. Additionally the dryer operator wore a hat, mask, sterile gloves, a sterile gown during the procedure as we ll as practiced acceptable hand hygiene prior to placing the line. Lidocaine was used for local anest hesia. Technique and Findings: High micropuncture needle was then used to gain access to the right internal jugular vein ultrasound guidance. A hard copy ultrasound image was recorded. A guidewire was advance d centrally over which, following dilatation, a triple-lumen central venous catheter was placed. The new catheter was found to flush and aspirate normally. The catheter was secured in place. Sterile dr essings were applied. No immediate complications were identified. IMPRESSION: Ultrasound-guided placement of right internal jugular triple-lumen central venous cathete r Electronically signed by: Edgardo Head MD (11/07/2021 2:08 PM) [id number]
--- NOTE | 2021-11-07 14:52 | NUR ---
Pt placed on sedation vacation after levophed off, pt did not tolerate, was attempting to get out of bed, constantly coughing, not redirectable, HR and bp increased, pt sweating profusely. Pt resedated, cool rag applied to forehead. Addendum: 11/07/21 at 1904 by DAVID LEWIS RN attempted sedation vacation again, pt once again did not tolerate and resedated
[2021-11-07] MEDS: HEPARIN 25,000UTS/250ML PREMIX 250 ML IV PRN (16:35)
[2021-11-07] MEDS: NOREPINEPHRINE VIAL 8 MG in IV DEXTROSE 5% 250 ML IV PRN (21:17)
[2021-11-07] MEDS: MILRINONE 20MG/100ML PREMIX 100 ML IV PRN (21:19)
[2021-11-08] VITALS (28 sets, daily range): BP systolic 71–122; BP diastolic 42–75
--- NOTE | 2021-11-08 07:35 | PDOC ---
[employer] PROGRESS NOTE Date of Service DOS: DATE: 11/08/21 TIME: 07:33 Chief Complaint Chief Complaint Ventricular tachycardia arrest - on amiodarone gtt. 3 vessel CAD - s/p cardiac catheterization, awaiting transfer to tertiary care center for CT surgery evaluation Acute combined systolic and diastolic CHF - due to cardiac arrest, echo to assess systolic function reveals EF 15-20% Hyponatremia - likely hypervolemic, possibly alcohol related Hypokalemia - replace Hyperglycemia - A1c 5.5, likely was stress related Respiratory arrest - due to cardiac arrest. Pulmonology consulted. Seen on AC mode FEN - NPO PPX - heparin FULL CODE Dispo - ICU cc time 33 minutes History of Present Illness History of Present Illness Mr Goel is a 51 year old male brought in to ED on 11/05/2021 via EMS after cardiac arrest. Patient had a witnessed cardiac arrest while dancing at a local [employer] club. Patient was found to be in V. tach by first responders. Patient was shocked and given 1 of epi. Patient achieved ROSC. Patient was intubated in the field and brought into the hospital. Labs with WBC 11.3, Hb 13.5, platelets 330, NA 132, K3 BUN 5, CR 1, glucose 164, calcium 8.1, albumin 3.4, LFTs otherwise within normal laboratory limits, NT proBNP 5695, high-sensitivity troponin is 76 urine drug screen positive for ethyl alcohol, urinalysis bland, INR 1.2, D-dimer 19.35, ABG on 60% FiO2 was 7.31/32/158. Chest radiograph well-positioned ET tube and increased interstitial markings. Noncontrast CT head with no acute findings EKG sinus rate 87 bpm incomplete left bundle branch block, QRS 140, QTc 506, PVCs noted. No significant ST elevation or T WI. Admitted to ICU on amiodarone and heparin GTT 11/07: Seen in ICU on vent. ABG 7.3 / on 40% FiO2 PEEP of 5, CR up to 2. Status post coronary angiogram on 11/06/2021 with severe three-vessel disease with LAD 90% stenosis mid segment left circumflex 95% stenosis LAD and obtuse marginal 80% stenosis RCA 99% subtotal occlusion mid segment. Daughter discussed with social work preference to transfer to CT surgery capable facility either [facility] or [facility] 11/08: Status post right IJ triple-lumen catheter placement. Seen on vent AC mode with O2 saturations 94% on 40% FiO2 PEEP of 5. Labs pending. Maintain on heparin gtt. amiodarone gtt. sedated on Versed. Afebrile. Vitals/I&O Vitals/I&O: Vital Signs Date Time Temp Pulse Resp B/P (MAP) Pulse Ox O2 Delivery O2 Flow Rate FiO2 11/08/21 06:00 66 20 104/63 98 Ventilator 11/08/21 04:00 99.1 99.1 I & O 11/07/21 11/07/21 11/08/21 15:00 23:00 07:00 Intake Total 595 ml 477 ml Output Total 410 ml 3640 ml 1150 ml Balance -410 ml -3045 ml -673 ml Physical Exam General: No acute distress Heart: Regular rate Lungs: Clear Abdomen: Soft Extremities: No edema Skin: No significant lesion Labs Labs: Laboratory Tests Test 11/07/21 07:40 11/07/21 10:10 11/07/21 11:25 11/07/21 18:07 O2 Saturation 94 % (92-99) Arterial Blood pH 7.34 (7.35-7.45) Arterial Blood pCO2 at Patient Temp 43 mmHg (35-46) Arterial Blood pO2 at Patient Temp 79 mmHg (75-108) Arterial Blood HCO3 23 mmol/L (21-28) Arterial Blood Base Excess -3 mmol/L (-3-3) FiO2 40 Heparin Anti-Xa Act, Unfractionated 0.26 IU/mL (0.30-0.70) 0.34 IU/mL (0.30-0.70) Coronavirus (COVID-19)(PCR) Not detected (NOT DETECTD) SARS-CoV-2 Antigen (Rapid) Negative (NEGATIVE) Test 11/08/21 00:25 Heparin Anti-Xa Act, Unfractionated 0.23 IU/mL (0.30-0.70) Assessment and Plan Assessmemt and Plan Problems Medical Problems: (1) Cardiac arrest Status: Acute Comment Review of Relevant I have reviewed the following items meka (where applicable) has been applied. Medications: Current Medications Medications (Trade) Dose Ordered Sig/Claude Route PRN Reason Start Time Stop Time Status Last Admin Dose Admin Pantoprazole Sodium (PROTONIX VIAL for IV PUSH) 40 mg 1X ONCE IVP 11/07/21 13:00 11/07/21 13:01 DC 11/07/21 14:11 Justifications for Admission Other Justification YEHUDA HAMM MD Nov 08, 2021 07:35
[2021-11-08 08:15] LABS: BASE EXCESS ABG 3 mmol/L (-3-3); HCO3 ABG 26 mmol/L (21-28); PCO2 ABG 36 mmHg (35-46); PO2 ABG 92 mmHg (75-108); SAT O2 ABG 97 % (92-99)
[2021-11-08 08:17] LABS: FIO2 ABG 40% vent
[2021-11-08] MEDS: POLYETHYLENE GLYCOL 3350 17 GM PACKET. PO SCH (09:00)
[2021-11-08] MEDS: ASPIRIN CHEWABLE 81 MG TABLET. PO SCH (10:05)
[2021-11-08] MEDS: FUROSEMIDE 40 MG/4 ML VIAL. IVP SCH ×2 (10:06→14:00)
[2021-11-08] MEDS: AMIODARONE 450 MG in IV DEXTROSE 5% 250 ML IV PRN (10:06)
[2021-11-08] MEDS: HEPARIN 25,000UTS/250ML PREMIX 250 ML IV PRN ×2 (10:09→21:24)
--- NOTE | 2021-11-08 10:13 | PDOC ---
PULMONARY PROGRESS NOTES DATE: 11/08/21 TIME: 10:11 Subjective patient remains on assist control mode. Remains sedated. Yesterday sedation was taken off, patient became very agitated and restless. He was restarted back on sedation. S/p cardiac cath with severe three-vessel coronary artery disease and ejection fraction of 15%. On milrinone, Levophed and amiodarone Vitals Vital Signs Date Time Temp Pulse Resp B/P (MAP) Pulse Ox O2 Delivery O2 Flow Rate FiO2 11/08/21 09:00 66 20 103/68 100 Ventilator 11/08/21 08:00 98.9 98.9 Comments Remains on mechanical ventilation. General: No acute distress Lungs: Clear Cardiovascular: S1 Abdomen: Soft Extremities: No Edema Skin: Warm Labs Laboratory Tests Test 11/06/21 16:20 11/06/21 21:50 11/07/21 03:50 11/07/21 07:40 Heparin Anti-Xa Act, Unfractionated 0.51 IU/mL (0.30-0.70) 0.22 IU/mL (0.30-0.70) 0.21 IU/mL (0.30-0.70) White Blood Count 14.4 x10^3/uL (4.0-11.0) Red Blood Count 3.76 x10^6/uL (4.30-5.70) Hemoglobin 11.7 g/dL (13.0-17.5) Hematocrit 35.3 % (39.0-53.0) Mean Corpuscular Volume 94 fL (79-100) Mean Corpuscular Hemoglobin 31 pg (25-35) Mean Corpuscular Hemoglobin Concent 33 g/dL (31-37) Red Cell Distribution Width 16.0 % (11.5-14.5) Platelet Count 329 x10^3/uL (140-400) Neutrophils (%) (Auto) 77 % (31-73) Lymphocytes (%) (Auto) 11 % (24-48) Monocytes (%) (Auto) 12 % (0-9) Eosinophils (%) (Auto) 0 % (0-3) Basophils (%) (Auto) 0 % (0-3) Neutrophils # (Auto) 11.1 x10^3/uL (1.8-7.7) Lymphocytes # (Auto) 1.6 x10^3/uL (1.0-4.8) Monocytes # (Auto) 1.7 x10^3/uL (0.0-1.1) Eosinophils # (Auto) 0.0 x10^3/uL (0.0-0.7) Basophils # (Auto) 0.0 x10^3/uL (0.0-0.2) Sodium Level 131 mmol/L (136-145) Potassium Level 4.4 mmol/L (3.5-5.1) Chloride Level 98 mmol/L (98-107) Carbon Dioxide Level 25 mmol/L (21-32) Anion Gap 8 (6-14) Blood Urea Nitrogen 22 mg/dL (8-26) Creatinine 2.0 mg/dL (0.7-1.3) Estimated GFR (Cockcroft-Gault) 35.4 BUN/Creatinine Ratio 11 (6-20) Glucose Level 113 mg/dL (70-99) Calcium Level 8.0 mg/dL (8.5-10.1) Total Bilirubin 0.6 mg/dL (0.2-1.0) Aspartate Amino Transf (AST/SGOT) 69 U/L (15-37) Alanine Aminotransferase (ALT/SGPT) 32 U/L (16-63) Alkaline Phosphatase 78 U/L (46-116) Total Protein 6.3 g/dL (6.4-8.2) Albumin 2.7 g/dL (3.4-5.0) Albumin/Globulin Ratio 0.8 (1.0-1.7) O2 Saturation 94 % (92-99) Arterial Blood pH 7.34 (7.35-7.45) Arterial Blood pCO2 at Patient Temp 43 mmHg (35-46) Arterial Blood pO2 at Patient Temp 79 mmHg (75-108) Arterial Blood HCO3 23 mmol/L (21-28) Arterial Blood Base Excess -3 mmol/L (-3-3) FiO2 40 Test 11/07/21 10:10 11/07/21 11:25 11/07/21 18:07 11/08/21 00:25 Heparin Anti-Xa Act, Unfractionated 0.26 IU/mL (0.30-0.70) 0.34 IU/mL (0.30-0.70) 0.23 IU/mL (0.30-0.70) Coronavirus (COVID-19)(PCR) Not detected (NOT DETECTD) SARS-CoV-2 Antigen (Rapid) Negative (NEGATIVE) Test 11/08/21 08:13 O2 Saturation 97 % (92-99) Arterial Blood pH 7.48 (7.35-7.45) Arterial Blood pCO2 at Patient Temp 36 mmHg (35-46) Arterial Blood pO2 at Patient Temp 92 mmHg (75-108) Arterial Blood HCO3 26 mmol/L (21-28) Arterial Blood Base Excess 3 mmol/L (-3-3) FiO2 40% vent Laboratory Tests Test 11/07/21 11:25 11/07/21 18:07 11/08/21 00:25 11/08/21 08:13 Coronavirus (COVID-19)(PCR) Not detected (NOT DETECTD) SARS-CoV-2 Antigen (Rapid) Negative (NEGATIVE) Heparin Anti-Xa Act, Unfractionated 0.34 IU/mL (0.30-0.70) 0.23 IU/mL (0.30-0.70) O2 Saturation 97 % (92-99) Arterial Blood pH 7.48 (7.35-7.45) Arterial Blood pCO2 at Patient Temp 36 mmHg (35-46) Arterial Blood pO2 at Patient Temp 92 mmHg (75-108) Arterial Blood HCO3 26 mmol/L (21-28) Arterial Blood Base Excess 3 mmol/L (-3-3) FiO2 40% vent Comments Chest x-ray reviewed 11/07/2021. No obvious CHF. Minimal atelectasis right lower lobe chest x-ray done on 11/05/2021 reviewed. Evidence of mild congestive heart failure Impression . 1. Acute hypoxemic respiratory failure secondary to [id number] cardiopulmonary arrest. [id number] cardiopulmonary arrest secondary to V-tach, status post 1 time defibrillation, 1 amp of epinephrine. 2. Elevated troponin, suspect related to CPR and acute non-ST segment elevation myocardial infarction. 3. Abnormal x-ray, compatible with pulmonary edema. 4. Acute diastolic heart failure. 5. Hyponatremia. 6. Hypokalemia. 7. Status post cardiac cath with severe three-vessel coronary artery disease and ejection fraction of 15%. 8. Cardiogenic shock, on low-dose Levophed 9. Encephalopathy. Plan . 1. We will continue mechanical support at current vent settings. Currently down to 40% FiO2. 2. Cardiac findings reviewed. Patient will need to be transferred to another facility for coronary artery bypass. Cardiology is following 3. Continue heparin. 4. Continue IV amiodarone. 5. Diurese per Cardiology. 6. Monitor labs. 7. Replace potassium as needed. 8. Continue with Levophed. 9. Discussed with RN and RT. Patient remains critically ill. Discussed with cardiology. They want to attempt at weaning him off the ventilator. Patient did not tolerated off sedation and became very agitated yesterday. We will add Precedex drip. We will attempt to wean off Versed again today. Critical care time 30 minutes. YOHANA PERKINS MD Nov 08, 2021 10:13
[2021-11-08] MEDS ORDERED: ATROPINE 0.5 MG/5 ML DISP.SYRINGE. IV PRN (10:45)
[2021-11-08] MEDS ORDERED: IV NORMAL SALINE 500ML BAG 500 ML IV PRN (10:45)
[2021-11-08] MEDS: DEXMEDETOMIDINE 400 MCG in IV NORMAL SALINE 100ML 96 ML IV PRN ×2 (11:00→21:23)
--- NOTE | 2021-11-08 11:07 | PDOC ---
MARIOLA MURILLO SECURITY TESTER 11/08/21 1107: CARDIO Progress Notes Date and Time Date of Service 11/08/2021 Time of Evaluation 1100 Subjective Subjective: Other (intubated) Vitals Vitals Vital Signs Date Time Temp Pulse Resp B/P (MAP) Pulse Ox O2 Delivery O2 Flow Rate FiO2 11/08/21 10:40 100 11/08/21 10:00 77 20 122/75 Ventilator 11/08/21 08:00 98.9 98.9 Weight Weight [ ] Input and Output Intake and Output Intake and Output 11/08/21 07:00 Intake Total 1072 ml Output Total 5200 ml Balance -4128 ml IV Total 1072 ml Output Urine Total 3400 ml Gastric Drainage Total 1800 ml Laboratory Labs Laboratory Tests Test 11/07/21 11:25 11/07/21 18:07 11/08/21 00:25 11/08/21 08:13 Coronavirus (COVID-19)(PCR) Not detected (NOT DETECTD) SARS-CoV-2 Antigen (Rapid) Negative (NEGATIVE) Heparin Anti-Xa Act, Unfractionated 0.34 IU/mL (0.30-0.70) 0.23 IU/mL (0.30-0.70) O2 Saturation 97 % (92-99) Arterial Blood pH 7.48 (7.35-7.45) Arterial Blood pCO2 at Patient Temp 36 mmHg (35-46) Arterial Blood pO2 at Patient Temp 92 mmHg (75-108) Arterial Blood HCO3 26 mmol/L (21-28) Arterial Blood Base Excess 3 mmol/L (-3-3) FiO2 40% vent Physical Exam HEENT: Neck Supple W Full Motion Chest: Symmetric LUNGS: Other (intubated with MV) Heart: S1S2, RRR (SR) Abdomen: Soft N/T Extremities: No Calf Tenderness Neurology: other (sedated) Assessment Assessment 1. OOH Cardiac arrest, witness; EMS noted in VT- strips not available. ROSC achieved follow 1 round of CPR and dose of Epi. On amiodarone gtt. No further arrhythmias 2. Acute respiratory failure; secondary to above. intubated with MV 3. NSTEMI; trop highest 11,543, LHC revealed severe 3VD 4. Severe cardiomyopathy; preliminary echo with LVEF near 15% 5. Cardiogenic shock; requiring pressor support 6. TUNDE: Cr stable 7. Hypokalemia; replaced 8. ETOH misuse 9. Tobaccosim 10. Acute combined diastolic/systolic CHF Recommendations Continue heparin gtt. ASA Amidoarone for rhythm maintenance. Pressor as warranted on levophed Milrinone, lasix therapy High risk but will need CABG. Awaiting transfer to [facility] today Justicifation of Admission Dx: Justifications for Admission: Justification of Admission Dx: Yes MONCHO AGUILAR MD 11/08/21 0311: CARDIO Progress Notes Assessment Assessment Patient seen and examined. Agree with SKIN CARE THERAPIST's assessment and plan. No further VT/VF noted on telemetry. Cardiac catheterization showed severe three-vessel coronary artery disease. Continue inotropic support with milrinone infusion and diuresis for acute on chronic systolic and diastolic heart failure Continue ventilator weaning attempts per pulmonary team Plan for transfer to [facility] for possible coronary artery bypass surgery MARIOLA MURILLO APRN Nov 08, 2021 11:07 MONCHO AGUILAR MD Nov 08, 2021 18:41
[2021-11-08] MEDS: MIDAZOLAM 100mg/100ml NS BAG 100 ML IV PRN (16:17)
[2021-11-09] VITALS (27 sets, daily range): BP systolic 86–133; BP diastolic 49–80
[2021-11-09] MEDS: AMIODARONE 450 MG in IV DEXTROSE 5% 250 ML IV PRN (02:41)
[2021-11-09] MEDS: DEXMEDETOMIDINE 400 MCG in IV NORMAL SALINE 100ML 96 ML IV PRN ×2 (06:04→16:50)
[2021-11-09] MEDS: MILRINONE 20MG/100ML PREMIX 100 ML IV PRN (06:05)
[2021-11-09 07:03] LABS: CALCIUM 8.6 mg/dL (8.5-10.1); CREATININE 1.4 mg/dL (0.7-1.3); GFR 53.4; POTASSIUM 3.7 mmol/L (3.5-5.1)
[2021-11-09 07:23] LABS: BASE EXCESS ABG 1 mmol/L (-3-3); HCO3 ABG 24 mmol/L (21-28); PCO2 ABG 35 mmHg (35-46); PO2 ABG 65 mmHg (75-108); SAT O2 ABG 92 % (92-99)
[2021-11-09 07:25] LABS: FIO2 ABG 40% vent
[2021-11-09 07:32] LABS: HEMATOCRIT 35.4 % (39.0-53.0); RED BLOOD COUNT 3.77 x10^6/uL (4.30-5.70); RED CELL DISTRIBUTION WIDTH 15.8 % (11.5-14.5); WHITE BLOOD COUNT 9.4 x10^3/uL (4.0-11.0)
--- NOTE | 2021-11-09 08:16 | PDOC ---
[employer] PROGRESS NOTE Date of Service DOS: DATE: 11/09/21 TIME: 08:09 Chief Complaint Chief Complaint Ventricular tachycardia arrest - on amiodarone gtt. Now with apparent atrial arrhythmia. Repeat EKG 3 vessel CAD - s/p cardiac catheterization, awaiting transfer to tertiary care center for CT surgery evaluation Acute combined systolic and diastolic CHF - due to cardiac arrest, echo to assess systolic function reveals EF 15-20%. Milrinone and lasix per cardiology Hyponatremia - likely hypervolemic, possibly alcohol related Hypokalemia - replaced Hyperglycemia - A1c 5.5, likely was stress related Respiratory arrest - due to cardiac arrest. Pulmonology consulted. Seen on AC mode FEN - NPO PPX - heparin FULL CODE Dispo - ICU cc time 31 minutes History of Present Illness History of Present Illness Mr Goel is a 51 year old male brought in to ED on 11/05/2021 via EMS after cardiac arrest. Patient had a witnessed cardiac arrest while dancing at a local [employer] club. Patient was found to be in V. tach by first responders. Patient was shocked and given 1 of epi. Patient achieved ROSC. Patient was intubated in the field and brought into the hospital. Labs with WBC 11.3, Hb 13.5, platelets 330, NA 132, K3 BUN 5, CR 1, glucose 164, calcium 8.1, albumin 3.4, LFTs otherwise within normal laboratory limits, NT proBNP 5695, high-sensitivity troponin is 76 urine drug screen positive for ethyl alcohol, urinalysis bland, INR 1.2, D-dimer 19.35, ABG on 60% FiO2 was 7.31/32/158. Chest radiograph well-positioned ET tube and increased interstitial markings. Noncontrast CT head with no acute findings EKG sinus rate 87 bpm incomplete left bundle branch block, QRS 140, QTc 506, PVCs noted. No significant ST elevation or T WI. Admitted to ICU on amiodarone and heparin GTT 11/07: Seen in ICU on vent. ABG 7.3 / on 40% FiO2 PEEP of 5, CR up to 2. Status post coronary angiogram on 11/06/2021 with severe three-vessel disease with LAD 90% stenosis mid segment left circumflex 95% stenosis LAD and obtuse marginal 80% stenosis RCA 99% subtotal occlusion mid segment. Daughter discussed with social work preference to transfer to CT surgery capable facility [facility] or [facility] 11/08: Status post right IJ triple-lumen catheter placement. Seen on vent AC mode with O2 saturations 94% on 40% FiO2 PEEP of 5. Labs pending. Maintain on heparin gtt. amiodarone gtt. sedated on Versed. Afebrile. 11/09: WBC 11.4, CR improved to 1.4, NA 133. ABG 7.4 on 40% FiO2 PEEP of 5. Attempted wean off Versed for 12 hours and transition to Precedex patient became agitated overnight and Versed was resumed.Urine output 3.4 L yesterday and 1.7 L so far today. Remains on heparin gtt. and amiodarone, milrinone, lasix Vitals/I&O Vitals/I&O: Vital Signs Date Time Temp Pulse Resp B/P (MAP) Pulse Ox O2 Delivery O2 Flow Rate FiO2 11/09/21 07:47 100 11/09/21 07:17 Ventilator 11/09/21 06:00 61 20 123/76 11/09/21 04:00 99.2 99.2 I & O 11/08/21 11/08/21 11/09/21 15:00 23:00 07:00 Intake Total 657 ml 732 ml Output Total 825 ml 560 ml 1240 ml Balance -825 ml 97 ml -508 ml Physical Exam General: No acute distress Heart: Regular rate Lungs: Clear Abdomen: Soft Extremities: No edema Skin: No significant lesion Labs Labs: Laboratory Tests Test 11/08/21 08:13 11/08/21 12:00 11/08/21 18:00 11/09/21 01:30 O2 Saturation 97 % (92-99) Arterial Blood pH 7.48 (7.35-7.45) Arterial Blood pCO2 at Patient Temp 36 mmHg (35-46) Arterial Blood pO2 at Patient Temp 92 mmHg (75-108) Arterial Blood HCO3 26 mmol/L (21-28) Arterial Blood Base Excess 3 mmol/L (-3-3) FiO2 40% vent Heparin Anti-Xa Act, Unfractionated 0.22 IU/mL (0.30-0.70) 0.29 IU/mL (0.30-0.70) 0.46 IU/mL (0.30-0.70) Test 11/09/21 06:30 11/09/21 07:22 White Blood Count 9.4 x10^3/uL (4.0-11.0) Red Blood Count 3.77 x10^6/uL (4.30-5.70) Hemoglobin 12.0 g/dL (13.0-17.5) Hematocrit 35.4 % (39.0-53.0) Mean Corpuscular Volume 94 fL (79-100) Mean Corpuscular Hemoglobin 32 pg (25-35) Mean Corpuscular Hemoglobin Concent 34 g/dL (31-37) Red Cell Distribution Width 15.8 % (11.5-14.5) Platelet Count 316 x10^3/uL (140-400) Sodium Level 133 mmol/L (136-145) Potassium Level 3.7 mmol/L (3.5-5.1) Chloride Level 98 mmol/L (98-107) Carbon Dioxide Level 27 mmol/L (21-32) Anion Gap 8 (6-14) Blood Urea Nitrogen 21 mg/dL (8-26) Creatinine 1.4 mg/dL (0.7-1.3) Estimated GFR (Cockcroft-Gault) 53.4 Glucose Level 111 mg/dL (70-99) Calcium Level 8.6 mg/dL (8.5-10.1) O2 Saturation 92 % (92-99) Arterial Blood pH 7.46 (7.35-7.45) Arterial Blood pCO2 at Patient Temp 35 mmHg (35-46) Arterial Blood pO2 at Patient Temp 65 mmHg (75-108) Arterial Blood HCO3 24 mmol/L (21-28) Arterial Blood Base Excess 1 mmol/L (-3-3) FiO2 40% vent Assessment and Plan Assessmemt and Plan Problems Medical Problems: (1) Cardiac arrest Status: Acute Comment Review of Relevant I have reviewed the following items meka (where applicable) has been applied. Medications: Current Medications Medications (Trade) Dose Ordered Sig/Claude Route PRN Reason Start Time Stop Time Status Last Admin Dose Admin Dexmedetomidine HCl 400 mcg/ Sodium Chloride 100 ml @ 3.9 mls/hr CONT PRN IV PER PROTOCOL 11/08/21 11:00 11/09/21 06:04 Justifications for Admission Other Justification YEHUDA HAMM MD Nov 09, 2021 08:15
--- NOTE | 2021-11-09 08:41 | EKG ---
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
[2021-11-09] MEDS: ASPIRIN CHEWABLE 81 MG TABLET. PO SCH (09:23)
[2021-11-09] MEDS: FUROSEMIDE 40 MG/4 ML VIAL. IVP SCH ×2 (09:23→15:43)
[2021-11-09] MEDS: POLYETHYLENE GLYCOL 3350 17 GM PACKET. PO SCH (09:23)
[2021-11-09] MEDS: HEPARIN 25,000UTS/250ML PREMIX 250 ML IV PRN ×2 (09:35→20:49)
[2021-11-09] MEDS ORDERED: POLYVINYL ALCOHOL 1.4% OPHTH SOLUTION 15ML BOTTLE. OU PRN (10:30)
--- NOTE | 2021-11-09 10:51 | PDOC ---
PULMONARY PROGRESS NOTES DATE: 11/09/21 TIME: 10:47 Subjective patient remains on assist control mode. Finally taken off the Versed. Still not awake. Patient has periods of agitation and restlessness. S/p cardiac cath with severe three-vessel coronary artery disease and ejection fraction of 15%. On milrinone, Levophed and amiodarone Vitals Vital Signs Date Time Temp Pulse Resp B/P (MAP) Pulse Ox O2 Delivery O2 Flow Rate FiO2 11/09/21 08:22 100 Ventilator 11/09/21 06:00 61 20 123/76 11/09/21 04:00 99.2 99.2 Comments Remains on mechanical ventilation. General: No acute distress Lungs: Clear Cardiovascular: S1 Abdomen: Soft Extremities: No Edema Skin: Warm Labs Laboratory Tests Test 11/07/21 11:25 11/07/21 18:07 11/08/21 00:25 11/08/21 08:13 Coronavirus (COVID-19)(PCR) Not detected (NOT DETECTD) SARS-CoV-2 Antigen (Rapid) Negative (NEGATIVE) Heparin Anti-Xa Act, Unfractionated 0.34 IU/mL (0.30-0.70) 0.23 IU/mL (0.30-0.70) O2 Saturation 97 % (92-99) Arterial Blood pH 7.48 (7.35-7.45) Arterial Blood pCO2 at Patient Temp 36 mmHg (35-46) Arterial Blood pO2 at Patient Temp 92 mmHg (75-108) Arterial Blood HCO3 26 mmol/L (21-28) Arterial Blood Base Excess 3 mmol/L (-3-3) FiO2 40% vent Test 11/08/21 12:00 11/08/21 18:00 11/09/21 01:30 11/09/21 06:30 Heparin Anti-Xa Act, Unfractionated 0.22 IU/mL (0.30-0.70) 0.29 IU/mL (0.30-0.70) 0.46 IU/mL (0.30-0.70) 0.32 IU/mL (0.30-0.70) White Blood Count 9.4 x10^3/uL (4.0-11.0) Red Blood Count 3.77 x10^6/uL (4.30-5.70) Hemoglobin 12.0 g/dL (13.0-17.5) Hematocrit 35.4 % (39.0-53.0) Mean Corpuscular Volume 94 fL (79-100) Mean Corpuscular Hemoglobin 32 pg (25-35) Mean Corpuscular Hemoglobin Concent 34 g/dL (31-37) Red Cell Distribution Width 15.8 % (11.5-14.5) Platelet Count 316 x10^3/uL (140-400) Sodium Level 133 mmol/L (136-145) Potassium Level 3.7 mmol/L (3.5-5.1) Chloride Level 98 mmol/L (98-107) Carbon Dioxide Level 27 mmol/L (21-32) Anion Gap 8 (6-14) Blood Urea Nitrogen 21 mg/dL (8-26) Creatinine 1.4 mg/dL (0.7-1.3) Estimated GFR (Cockcroft-Gault) 53.4 Glucose Level 111 mg/dL (70-99) Calcium Level 8.6 mg/dL (8.5-10.1) Test 11/09/21 07:22 O2 Saturation 92 % (92-99) Arterial Blood pH 7.46 (7.35-7.45) Arterial Blood pCO2 at Patient Temp 35 mmHg (35-46) Arterial Blood pO2 at Patient Temp 65 mmHg (75-108) Arterial Blood HCO3 24 mmol/L (21-28) Arterial Blood Base Excess 1 mmol/L (-3-3) FiO2 40% vent Laboratory Tests Test 11/08/21 12:00 11/08/21 18:00 11/09/21 01:30 11/09/21 06:30 Heparin Anti-Xa Act, Unfractionated 0.22 IU/mL (0.30-0.70) 0.29 IU/mL (0.30-0.70) 0.46 IU/mL (0.30-0.70) 0.32 IU/mL (0.30-0.70) White Blood Count 9.4 x10^3/uL (4.0-11.0) Red Blood Count 3.77 x10^6/uL (4.30-5.70) Hemoglobin 12.0 g/dL (13.0-17.5) Hematocrit 35.4 % (39.0-53.0) Mean Corpuscular Volume 94 fL (79-100) Mean Corpuscular Hemoglobin 32 pg (25-35) Mean Corpuscular Hemoglobin Concent 34 g/dL (31-37) Red Cell Distribution Width 15.8 % (11.5-14.5) Platelet Count 316 x10^3/uL (140-400) Sodium Level 133 mmol/L (136-145) Potassium Level 3.7 mmol/L (3.5-5.1) Chloride Level 98 mmol/L (98-107) Carbon Dioxide Level 27 mmol/L (21-32) Anion Gap 8 (6-14) Blood Urea Nitrogen 21 mg/dL (8-26) Creatinine 1.4 mg/dL (0.7-1.3) Estimated GFR (Cockcroft-Gault) 53.4 Glucose Level 111 mg/dL (70-99) Calcium Level 8.6 mg/dL (8.5-10.1) Test 11/09/21 07:22 O2 Saturation 92 % (92-99) Arterial Blood pH 7.46 (7.35-7.45) Arterial Blood pCO2 at Patient Temp 35 mmHg (35-46) Arterial Blood pO2 at Patient Temp 65 mmHg (75-108) Arterial Blood HCO3 24 mmol/L (21-28) Arterial Blood Base Excess 1 mmol/L (-3-3) FiO2 40% vent Comments Chest x-ray reviewed 11/07/2021. No obvious CHF. Minimal atelectasis right lower lobe chest x-ray done on 11/05/2021 reviewed. Evidence of mild congestive heart failure Impression . 1. Acute hypoxemic respiratory failure secondary to [id number] cardiopulmonary arrest. [id number] cardiopulmonary arrest secondary to V-tach, status post 1 time defibrillation, 1 amp of epinephrine. 2. Elevated troponin, suspect related to CPR and acute non-ST segment elevation myocardial infarction. 3. Abnormal x-ray, compatible with pulmonary edema. 4. Acute diastolic heart failure. 5. Hyponatremia. 6. Hypokalemia. 7. Status post cardiac cath with severe three-vessel coronary artery disease and ejection fraction of 15%. 8. Cardiogenic shock, on low-dose Levophed 9. Encephalopathy. Plan . 1. We will continue mechanical support at current vent settings. Currently d own to 40% FiO2. Patient is currently off Versed. Currently on fentanyl only. We will add Precedex if needed. Patient was noted to have moderate white to light yellow secretions today. May have to add propofol if continues to remain agitated. Once able to assess mental status and its reasonable, then patient would be a candidate for transfer to another facility for bypass evaluation. Patient also has moderate white to light yellow secretions. Low-grade fever. We will add empiric antibiotic. 2. Cardiac catheterization findings reviewed. 3. Continue heparin. 4. Continue IV amiodarone. 5. Diurese per Cardiology. 6. Monitor labs. 7. Replace potassium as needed. 8. Continue with Levophed. 9. Discussed with RN and RT. Patient remains critically ill. Discussed with cardiology. Critical care time 30 minutes. YOHANA PERKINS MD Nov 09, 2021 10:51
--- NOTE | 2021-11-09 11:37 | PDOC ---
MARIOLA MURILLO MANAGER QUANTITATIVE 11/09/21 1137: CARDIO Progress Notes Date and Time Date of Service 11/09/2021 Time of Evaluation 0930 Subjective Subjective: Other (intubated) Vitals Vitals Vital Signs Date Time Temp Pulse Resp B/P (MAP) Pulse Ox O2 Delivery O2 Flow Rate FiO2 11/09/21 11:12 97 Ventilator 11/09/21 06:00 61 20 123/76 11/09/21 04:00 99.2 99.2 Weight Weight [ ] Input and Output Intake and Output Intake and Output 11/09/21 07:00 Intake Total 1389 ml Output Total 2625 ml Balance -1236 ml IV Total 1389 ml Output Urine Total 1725 ml Gastric Drainage Total 900 ml Laboratory Labs Laboratory Tests Test 11/08/21 12:00 11/08/21 18:00 11/09/21 01:30 11/09/21 06:30 Heparin Anti-Xa Act, Unfractionated 0.22 IU/mL (0.30-0.70) 0.29 IU/mL (0.30-0.70) 0.46 IU/mL (0.30-0.70) 0.32 IU/mL (0.30-0.70) White Blood Count 9.4 x10^3/uL (4.0-11.0) Red Blood Count 3.77 x10^6/uL (4.30-5.70) Hemoglobin 12.0 g/dL (13.0-17.5) Hematocrit 35.4 % (39.0-53.0) Mean Corpuscular Volume 94 fL (79-100) Mean Corpuscular Hemoglobin 32 pg (25-35) Mean Corpuscular Hemoglobin Concent 34 g/dL (31-37) Red Cell Distribution Width 15.8 % (11.5-14.5) Platelet Count 316 x10^3/uL (140-400) Sodium Level 133 mmol/L (136-145) Potassium Level 3.7 mmol/L (3.5-5.1) Chloride Level 98 mmol/L (98-107) Carbon Dioxide Level 27 mmol/L (21-32) Anion Gap 8 (6-14) Blood Urea Nitrogen 21 mg/dL (8-26) Creatinine 1.4 mg/dL (0.7-1.3) Estimated GFR (Cockcroft-Gault) 53.4 Glucose Level 111 mg/dL (70-99) Calcium Level 8.6 mg/dL (8.5-10.1) Test 11/09/21 07:22 O2 Saturation 92 % (92-99) Arterial Blood pH 7.46 (7.35-7.45) Arterial Blood pCO2 at Patient Temp 35 mmHg (35-46) Arterial Blood pO2 at Patient Temp 65 mmHg (75-108) Arterial Blood HCO3 24 mmol/L (21-28) Arterial Blood Base Excess 1 mmol/L (-3-3) FiO2 40% vent Physical Exam HEENT: Neck Supple W Full Motion Chest: Symmetric LUNGS: Other (intubated with MV) Heart: S1S2, RRR (SR) Abdomen: Soft N/T Extremities: No Calf Tenderness Neurology: other (sedated) Assessment Assessment 1. OOH Cardiac arrest, witness; EMS noted in [place]- strips not available. ROSC achieved follow 1 round of CPR and dose of Epi. On amiodarone gtt. No further arrhythmias 2. Acute respiratory failure; secondary to above. intubated with MV 3. NSTEMI; trop highest 11,543, C revealed severe 3VD 4. Severe cardiomyopathy; preliminary echo with LVEF near 15% 5. Cardiogenic shock; requiring pressor support 6. TUNDE: Cr stable 7. Hypokalemia; replaced 8. ETOH misuse 9. Tobaccosim 10. Acute combined diastolic/systolic CHF 11. Encephalopathy Recommendations Await to wean off sedation and note for intact neuro function before CABG consideration per discussion with CTS at [facility] Continue heparin gtt. ASA Amiodarone for rhythm maintenance. Pressor as warranted on levophed Milrinone, lasix therapy Justicifation of Admission Dx: Justifications for Admission: Justification of Admission Dx: Yes MONCHO AGUILAR MD 11/09/21 1535: CARDIO Progress Notes Assessment Assessment Patient seen and examined. Agree with ASBESTOS REMOVER's assessment and plan. No further VT/VF noted on telemetry. Change amiodarone to per NGT Cardiac catheterization showed severe three-vessel coronary artery disease. Continue inotropic support with milrinone infusion and diuresis for acute on chronic systolic and diastolic heart failure Continue ventilator weaning attempts per pulmonary team Plan for transfer to [facility] for possible coronary artery bypass surgery after evaluating neuro status and most probably after extubation MARIOLA MURILLO MANAGER QUANTITATIVE Nov 09, 2021 11:37 MONCHO AGUILAR MD Nov 09, 2021 15:35
[2021-11-09] MEDS: cefTRIAXone IV Push 1 GM VIAL. IVP SCH (12:53)
[2021-11-09] MEDS: PROPOFOL 100 ML IV PRN ×2 (12:54→23:50)
[2021-11-09] MEDS ORDERED: AMIODARONE HCL 200 MG TABLET. PO SCH (16:00)
[2021-11-09] MEDS: AMIODARONE HCL 200 MG TABLET. PO SCH (16:19)
[2021-11-10] VITALS (25 sets, daily range): BP systolic 82–159; BP diastolic 49–79
[2021-11-10] MEDS: DEXMEDETOMIDINE 400 MCG in IV NORMAL SALINE 100ML 96 ML IV PRN ×2 (02:01→08:39)
[2021-11-10 06:00] LABS: CALCIUM 8.6 mg/dL (8.5-10.1); CREATININE 1.2 mg/dL (0.7-1.3); GFR 63.8; POTASSIUM 3.1 mmol/L (3.5-5.1)
[2021-11-10 07:33] LABS: BASE EXCESS ABG 5 mmol/L (-3-3); HCO3 ABG 28 mmol/L (21-28); PCO2 ABG 35 mmHg (35-46); PO2 ABG 71 mmHg (75-108); SAT O2 ABG 94 % (92-99)
[2021-11-10 07:35] LABS: FIO2 ABG 40% vent
--- NOTE | 2021-11-10 08:21 | PDOC ---
MARIOLA MURILLO PREPLEATER 11/10/21 0821: CARDIO Progress Notes Date and Time Date of Service 11/10/2021 Time of Evaluation 0930 Subjective Subjective: Other (intubated) Vitals Vitals Vital Signs Date Time Temp Pulse Resp B/P (MAP) Pulse Ox O2 Delivery O2 Flow Rate FiO2 11/10/21 07:22 100 Ventilator 11/10/21 07:00 58 20 122/69 11/10/21 04:00 98.4 98.4 Weight Weight [ ] Input and Output Intake and Output Intake and Output 11/10/21 07:00 Intake Total 1171.9 ml Output Total 2895 ml Balance -1723.1 ml IV Total 1111.9 ml Other 60 ml Output Urine Total 2595 ml Gastric Drainage Total 300 ml Laboratory Labs Laboratory Tests Test 11/10/21 05:25 11/10/21 07:31 Sodium Level 135 mmol/L (136-145) Potassium Level 3.1 mmol/L (3.5-5.1) Chloride Level 98 mmol/L (98-107) Carbon Dioxide Level 30 mmol/L (21-32) Anion Gap 7 (6-14) Blood Urea Nitrogen 22 mg/dL (8-26) Creatinine 1.2 mg/dL (0.7-1.3) Estimated GFR (Cockcroft-Gault) 63.8 Glucose Level 105 mg/dL (70-99) Calcium Level 8.6 mg/dL (8.5-10.1) O2 Saturation 94 % (92-99) Arterial Blood pH 7.52 (7.35-7.45) Arterial Blood pCO2 at Patient Temp 35 mmHg (35-46) Arterial Blood pO2 at Patient Temp 71 mmHg (75-108) Arterial Blood HCO3 28 mmol/L (21-28) Arterial Blood Base Excess 5 mmol/L (-3-3) FiO2 40% vent Physical Exam HEENT: Neck Supple W Full Motion Chest: Symmetric LUNGS: Other (intubated with MV) Heart: S1S2, RRR (SR) Abdomen: Soft N/T Extremities: No Calf Tenderness Neurology: other (sedated) Assessment Assessment 1. OOH Cardiac arrest, witness; EMS noted in VT- strips not available. ROSC achieved follow 1 round of CPR and dose of Epi. On amiodarone gtt. No further arrhythmias 2. Acute respiratory failure; secondary to above. intubated with MV 3. NSTEMI; trop highest 11,543, C revealed severe 3VD 4. Severe cardiomyopathy; preliminary echo with LVEF near 15% 5. Cardiogenic shock; requiring pressor support 6. TUNDE: Cr stable 7. Hypokalemia; replaced 8. ETOH misuse 9. Tobaccosim 10. Acute combined diastolic/systolic CHF 11. Encephalopathy Recommendations Await to wean off sedation and note for intact neuro function and possibly extubate before CABG consideration per discussion with CTS at [facility]. Was following commands last night but restless. Propofol to be weaned. On Precedex. Discussed with staff, will reeval today. Continue heparin gtt. ASA. Replace K and Mg Amiodarone for rhythm maintenance. Pressor as warranted off levophed Milrinone, lasix therapy Justicifation of Admission Dx: Justifications for Admission: Justification of Admission Dx: Yes MONCHO AGUILAR MD 11/10/21 1215: CARDIO Progress Notes Assessment Assessment Patient seen and examined. Agree with REGIONAL PRODUCTION MANAGER's assessment and plan. No further VT/VF noted on telemetry. Continue amiodarone for antiarrhythmic therapy Cardiac catheterization showed severe three-vessel coronary artery disease. Continue inotropic support with milrinone infusion and diuresis for acute on chronic systolic and diastolic heart failure Pulmonary team planning extubation later today Plan for transfer to [facility] for possible coronary artery bypass surgery over the weekend or early next week MARIOLA MURILLO APRN Nov 10, 2021 08:21 MONCHO AGUILAR MD Nov 10, 2021 12:15
--- NOTE | 2021-11-10 08:27 | PDOC ---
[employer] PROGRESS NOTE Date of Service DOS: DATE: 11/10/21 TIME: 08:23 Chief Complaint Chief Complaint Ventricular tachycardia arrest - on amiodarone. Repeat EKG stable sinus 3 vessel CAD - s/p cardiac catheterization, awaiting transfer to tertiary care center for CT surgery evaluation Acute combined systolic and diastolic CHF - due to cardiac arrest, echo to assess systolic function reveals EF 15-20%. Milrinone and lasix per cardiology Hyponatremia - likely hypervolemic, possibly alcohol related Hypokalemia - replaced Hyperglycemia - A1c 5.5, likely was stress related Respiratory arrest - due to cardiac arrest. Pulmonology consulted. Seen on AC mode FEN - NPO PPX - heparin FULL CODE Dispo - ICU cc time 31 minutes History of Present Illness History of Present Illness Mr Goel is a 51 year old male brought in to ED on 11/05/2021 via EMS after cardiac arrest. Patient had a witnessed cardiac arrest while dancing at a local [employer] [place]. Patient was found to be in V. tach by first responders. Patient was shocked and given 1 of epi. Patient achieved ROSC. Patient was intubated in the field and brought into the hospital. Labs with WBC 11.3, Hb 13.5, platelets 330, NA 132, K3 BUN 5, CR 1, glucose 164, calcium 8.1, albumin 3.4, LFTs otherwise within normal laboratory limits, NT proBNP 5695, high-sensitivity troponin is 76 urine drug screen positive for ethyl alcohol, urinalysis bland, INR 1.2, D-dimer 19.35, ABG on 60% FiO2 was 7.31/32/158. Chest radiograph well-positioned ET tube and increased interstitial markings. Noncontrast CT head with no acute findings EKG sinus rate 87 bpm incomplete left bundle branch block, QRS 140, QTc 506, PVCs noted. No significant ST elevation or T WI. Admitted to ICU on amiodarone and heparin GTT 11/07: Seen in ICU on vent. ABG 7.3 / on 40% FiO2 PEEP of 5, CR up to 2. Status post coronary angiogram on 11/06/2021 with severe three-vessel disease with LAD 90% stenosis mid segment left circumflex 95% stenosis LAD and obtuse marginal 80% stenosis RCA 99% subtotal occlusion mid segment. Daughter discussed with social work preference to transfer to CT surgery capable facility either [facility] or [facility] 11/08: Status post right IJ triple-lumen catheter placement. Seen on vent AC mode with O2 saturations 94% on 40% FiO2 PEEP of 5. Labs pending. Maintain on heparin gtt. amiodarone gtt. sedated on Versed. Afebrile. 11/09: WBC 11.4, CR improved to 1.4, NA 133. ABG 7.4 on 40% FiO2 PEEP of 5. Attempted wean off Versed for 12 hours and transition to Precedex patient became agitated overnight and Versed was resumed.Urine output 3.4 L yesterday and 1.7 L so far today. Remains on heparin gtt. and amiodarone, milrinone, lasix 11/10: ABG 7.5 on 40% FiO2 PEEP of 5. CR 1.2 currently K3.1 remains on milrinone and Lasix on heparin gtt., 2.8 L urine output. Sedated on Precedex propofol. Vitals/I&O Vitals/I&O: Vital Signs Date Time Temp Pulse Resp B/P (MAP) Pulse Ox O2 Delivery O2 Flow Rate FiO2 11/10/21 07:22 100 Ventilator 11/10/21 07:00 58 20 122/69 11/10/21 04:00 98.4 98.4 I & O 11/09/21 11/09/21 11/10/21 15:00 23:00 07:00 Intake Total 32 ml 528 ml 611.9 ml Output Total 1100 ml 1250 ml 545 ml Balance -1068 ml -722 ml 66.9 ml Physical Exam General: No acute distress Heart: Regular rate Lungs: Clear Abdomen: Soft Extremities: No edema Skin: No significant lesion Labs Labs: Laboratory Tests Test 11/10/21 05:25 11/10/21 07:31 Sodium Level 135 mmol/L (136-145) Potassium Level 3.1 mmol/L (3.5-5.1) Chloride Level 98 mmol/L (98-107) Carbon Dioxide Level 30 mmol/L (21-32) Anion Gap 7 (6-14) Blood Urea Nitrogen 22 mg/dL (8-26) Creatinine 1.2 mg/dL (0.7-1.3) Estimated GFR (Cockcroft-Gault) 63.8 Glucose Level 105 mg/dL (70-99) Calcium Level 8.6 mg/dL (8.5-10.1) O2 Saturation 94 % (92-99) Arterial Blood pH 7.52 (7.35-7.45) Arterial Blood pCO2 at Patient Temp 35 mmHg (35-46) Arterial Blood pO2 at Patient Temp 71 mmHg (75-108) Arterial Blood HCO3 28 mmol/L (21-28) Arterial Blood Base Excess 5 mmol/L (-3-3) FiO2 40% vent Assessment and Plan Assessmemt and Plan Problems Medical Problems: (1) Cardiac arrest Status: Acute Comment Review of Relevant I have reviewed the following items meka (where applicable) has been applied. Medications: Current Medications Medications (Trade) Dose Ordered Sig/Claude Route PRN Reason Start Time Stop Time Status Last Admin Dose Admin Propofol 100 ml @ 2.25 mls/hr CONT PRN IV PER PROTOCOL 11/09/21 10:30 11/09/21 23:50 Ceftriaxone Sodium (Rocephin) 1 gm Q24H IVP 11/09/21 11:00 11/09/21 12:53 Amiodarone HCl (Cordarone) 200 mg DAILY PO 11/09/21 16:00 11/09/21 16:11 DC 11/09/21 16:07 Justifications for Admission Other Justification YEHUDA HAMM MD Nov 10, 2021 08:27
[2021-11-10] MEDS: POLYETHYLENE GLYCOL 3350 17 GM PACKET. PO SCH (08:40)
[2021-11-10] MEDS: PROPOFOL 100 ML IV PRN (08:40)
[2021-11-10] MEDS: FUROSEMIDE 40 MG/4 ML VIAL. IVP SCH ×2 (08:42→14:00)
[2021-11-10] MEDS: AMIODARONE HCL 200 MG TABLET. PO SCH (08:46)
[2021-11-10] MEDS: ASPIRIN CHEWABLE 81 MG TABLET. PO SCH (08:46)
[2021-11-10] MEDS: HEPARIN 25,000UTS/250ML PREMIX 250 ML IV PRN ×2 (08:52→20:18)
[2021-11-10] MEDS ORDERED: AMIODARONE HCL 200 MG TABLET. PO SCH (09:00)
[2021-11-10] MEDS ORDERED: MAGNESIUM SULFATE 2GM 50 ML IV ONE (10:00)
[2021-11-10] MEDS: POTASSIUM CHLORIDE 20MEQ 100 ML IV SCH ×2 (11:06→12:03)
[2021-11-10] MEDS: cefTRIAXone IV Push 1 GM VIAL. IVP SCH (11:07)
[2021-11-10 11:18] LABS: BASE EXCESS ABG 5 mmol/L (-3-3); HCO3 ABG 29 mmol/L (21-28); PCO2 ABG 38 mmHg (35-46); PO2 ABG 75 mmHg (75-108); SAT O2 ABG 95 % (92-99)
--- NOTE | 2021-11-10 11:29 | PDOC ---
PULMONARY PROGRESS NOTES DATE: 11/10/21 TIME: 11:27 Subjective patient remains on assist control mode. Patient has been off sedation. Patient is following commands and is more appropriate today. S/p cardiac cath with severe three-vessel coronary artery disease and ejection fraction of 15%. On milrinone, Levophed and amiodarone Vitals Vital Signs Date Time Temp Pulse Resp B/P (MAP) Pulse Ox O2 Delivery O2 Flow Rate FiO2 11/10/21 11:10 100 Ventilator 11/10/21 11:00 61 21 104/63 11/10/21 08:00 98.8 98.8 Comments Remains on mechanical ventilation. General: No acute distress Lungs: Clear Cardiovascular: S1 Abdomen: Soft Extremities: No Edema Skin: Warm Labs Laboratory Tests Test 11/08/21 12:00 11/08/21 18:00 11/09/21 01:30 11/09/21 06:30 Heparin Anti-Xa Act, Unfractionated 0.22 IU/mL (0.30-0.70) 0.29 IU/mL (0.30-0.70) 0.46 IU/mL (0.30-0.70) 0.32 IU/mL (0.30-0.70) White Blood Count 9.4 x10^3/uL (4.0-11.0) Red Blood Count 3.77 x10^6/uL (4.30-5.70) Hemoglobin 12.0 g/dL (13.0-17.5) Hematocrit 35.4 % (39.0-53.0) Mean Corpuscular Volume 94 fL (79-100) Mean Corpuscular Hemoglobin 32 pg (25-35) Mean Corpuscular Hemoglobin Concent 34 g/dL (31-37) Red Cell Distribution Width 15.8 % (11.5-14.5) Platelet Count 316 x10^3/uL (140-400) Sodium Level 133 mmol/L (136-145) Potassium Level 3.7 mmol/L (3.5-5.1) Chloride Level 98 mmol/L (98-107) Carbon Dioxide Level 27 mmol/L (21-32) Anion Gap 8 (6-14) Blood Urea Nitrogen 21 mg/dL (8-26) Creatinine 1.4 mg/dL (0.7-1.3) Estimated GFR (Cockcroft-Gault) 53.4 Glucose Level 111 mg/dL (70-99) Calcium Level 8.6 mg/dL (8.5-10.1) Test 11/09/21 07:22 11/10/21 05:25 11/10/21 07:31 11/10/21 08:36 O2 Saturation 92 % (92-99) 94 % (92-99) Arterial Blood pH 7.46 (7.35-7.45) 7.52 (7.35-7.45) Arterial Blood pCO2 at Patient Temp 35 mmHg (35-46) 35 mmHg (35-46) Arterial Blood pO2 at Patient Temp 65 mmHg (75-108) 71 mmHg (75-108) Arterial Blood HCO3 24 mmol/L (21-28) 28 mmol/L (21-28) Arterial Blood Base Excess 1 mmol/L (-3-3) 5 mmol/L (-3-3) FiO2 40% vent 40% vent Sodium Level 135 mmol/L (136-145) Potassium Level 3.1 mmol/L (3.5-5.1) Chloride Level 98 mmol/L (98-107) Carbon Dioxide Level 30 mmol/L (21-32) Anion Gap 7 (6-14) Blood Urea Nitrogen 22 mg/dL (8-26) Creatinine 1.2 mg/dL (0.7-1.3) Estimated GFR (Cockcroft-Gault) 63.8 Glucose Level 105 mg/dL (70-99) Calcium Level 8.6 mg/dL (8.5-10.1) Magnesium Level 1.7 mg/dL (1.8-2.4) Heparin Anti-Xa Act, Unfractionated 0.43 IU/mL (0.30-0.70) Test 11/10/21 11:16 O2 Saturation 95 % (92-99) Arterial Blood pH 7.50 (7.35-7.45) Arterial Blood pCO2 at Patient Temp 38 mmHg (35-46) Arterial Blood pO2 at Patient Temp 75 mmHg (75-108) Arterial Blood HCO3 29 mmol/L (21-28) Arterial Blood Base Excess 5 mmol/L (-3-3) FiO2 40% cpap trial Laboratory Tests Test 11/10/21 05:25 11/10/21 07:31 11/10/21 08:36 11/10/21 11:16 Sodium Level 135 mmol/L (136-145) Potassium Level 3.1 mmol/L (3.5-5.1) Chloride Level 98 mmol/L (98-107) Carbon Dioxide Level 30 mmol/L (21-32) Anion Gap 7 (6-14) Blood Urea Nitrogen 22 mg/dL (8-26) Creatinine 1.2 mg/dL (0.7-1.3) Estimated GFR (Cockcroft-Gault) 63.8 Glucose Level 105 mg/dL (70-99) Calcium Level 8.6 mg/dL (8.5-10.1) Magnesium Level 1.7 mg/dL (1.8-2.4) O2 Saturation 94 % (92-99) 95 % (92-99) Arterial Blood pH 7.52 (7.35-7.45) 7.50 (7.35-7.45) Arterial Blood pCO2 at Patient Temp 35 mmHg (35-46) 38 mmHg (35-46) Arterial Blood pO2 at Patient Temp 71 mmHg (75-108) 75 mmHg (75-108) Arterial Blood HCO3 28 mmol/L (21-28) 29 mmol/L (21-28) Arterial Blood Base Excess 5 mmol/L (-3-3) 5 mmol/L (-3-3) FiO2 40% vent 40% cpap trial Heparin Anti-Xa Act, Unfractionated 0.43 IU/mL (0.30-0.70) Comments Chest x-ray reviewed 11/07/2021. No obvious CHF. Minimal atelectasis right lower lobe chest x-ray done on 11/05/2021 reviewed. Evidence of mild congestive heart failure Impression . 1. Acute hypoxemic respiratory failure secondary to [id number] cardiopulmonary arrest. [id number] cardiopulmonary arrest secondary to V-tach, status post 1 time defibrillation, 1 amp of epinephrine. 2. Elevated troponin, suspect related to CPR and acute non-ST segment elevation myocardial infarction. 3. Abnormal x-ray, compatible with pulmonary edema. 4. Acute diastolic heart failure. 5. Hyponatremia. 6. Hypokalemia. 7. Status post cardiac cath with severe three-vessel coronary artery disease and ejection fraction of 15%. 8. Cardiogenic shock, on low-dose Levophed 9. Encephalopathy. 10. Tracheobronchitis. Empirically antibiotics added 11/09/2021 Plan . 1. Patient is more appropriate. Responding to commands. Off sedation. Only on low-dose Precedex. Will place him on CPAP trial and likely extubate today. 2. Cardiac catheterization findings reviewed. 3. Continue heparin. 4. Continue IV amiodarone. 5. Diurese per Cardiology. 6. Monitor labs. 7. Replace potassium as needed. 8. Continue with Levophed. 9. Discussed with RN and RT. Patient remains critically ill. Discussed with cardiology. addendum;. Patient seen during CPAP trial. So far tolerating well. RT blood gases are reasonable. We will proceed with extubation. Discussed with patient's daughter at the bedside. Discussed with Dr. Potter. Since his mental status has improved, he may be transferring to tertiary care center for bypass evaluation. Critical care time 30 minutes. YOHANA PERKINS MD Nov 10, 2021 11:29
[2021-11-10] MEDS: MILRINONE 20MG/100ML PREMIX 100 ML IV PRN (12:01)
--- NOTE | 2021-11-10 14:00 | RAD ---
XR CHEST 1V History: shortness of breath Comparison: November 07, 2021 Findings: Small left pleural effusion. Patchy bibasilar opacities. Unchanged heart size. Unchanged right IJ enedina tral line. Interval extubation and removal of enteric tube. Impression: 1. New small left pleural effusion with increased adjacent opacity, may represent atelectasis. Electronically signed by: Ifeanyi Patel DO (11/10/2021 1:58 PM) [id number]
[2021-11-10] MEDS: NOREPINEPHRINE VIAL 8 MG in IV DEXTROSE 5% 250 ML IV PRN (17:12)
[2021-11-10] MEDS ORDERED: ACETAMINOPHEN 650 MG SUPP.RECT. PR PRN (18:45)
[2021-11-11] VITALS (24 sets, daily range): BP systolic 134–183; BP diastolic 64–92
[2021-11-11 05:56] LABS: CALCIUM 8.7 mg/dL (8.5-10.1); CREATININE 1.1 mg/dL (0.7-1.3); GFR 70.6
[2021-11-11 06:33] LABS: HEMATOCRIT 34.2 % (39.0-53.0); HEMOGLOBIN 11.7 g/dL (13.0-17.5); RED BLOOD COUNT 3.66 x10^6/uL (4.30-5.70); RED CELL DISTRIBUTION WIDTH 15.2 % (11.5-14.5)
[2021-11-11] MEDS ORDERED: MAGNESIUM SULFATE 2GM 50 ML IV ONE (08:00)
[2021-11-11] MEDS: ASPIRIN CHEWABLE 81 MG TABLET. PO SCH (08:15)
--- NOTE | 2021-11-11 08:15 | PDOC ---
[employer] PROGRESS NOTE Date of Service DOS: DATE: 11/11/21 TIME: 08:14 Chief Complaint Chief Complaint Ventricular tachycardia arrest - on amiodarone. Repeat EKG stable sinus 3 vessel CAD - s/p cardiac catheterization, awaiting transfer to tertiary care center for CT surgery evaluation Acute combined systolic and diastolic CHF - due to cardiac arrest, echo to assess systolic function reveals EF 15-20%. Milrinone and lasix per cardiology Hyponatremia - likely hypervolemic, possibly alcohol related Hypokalemia - replaced Hyperglycemia - A1c 5.5, likely was stress related Respiratory arrest - due to cardiac arrest. Pulmonology consulted. Extubated without event on 11/10/2021 FEN - NPO PPX - heparin FULL CODE Dispo - ICU cc time 31 minutes History of Present Illness History of Present Illness Mr Goel is a 51 year old male brought in to ED on 11/05/2021 via EMS after cardiac arrest. Patient had a witnessed cardiac arrest while dancing at a local [employer] club. Patient was found to be in V. tach by first responders. Patient was shocked and given 1 of epi. Patient achieved ROSC. Patient was intubated in the field and brought into the hospital. Labs with WBC 11.3, Hb 13.5, platelets 330, NA 132, K3 BUN 5, CR 1, glucose 164, calcium 8.1, albumin 3.4, LFTs otherwise within normal laboratory limits, NT proBNP 5695, high-sensitivity troponin is 76 urine drug screen positive for ethyl alcohol, urinalysis bland, INR 1.2, D-dimer 19.35, ABG on 60% FiO2 was 7.31/32/158. Chest radiograph well-positioned ET tube and increased interstitial markings. Noncontrast CT head with no acute findings EKG sinus rate 87 bpm incomplete left bundle branch block, QRS 140, QTc 506, PVCs noted. No significant ST elevation or T WI. Admitted to ICU on amiodarone and heparin GTT 11/07: Seen in ICU on vent. ABG 7.3 / on 40% FiO2 PEEP of 5, CR up to 2. Status post coronary angiogram on 11/06/2021 with severe three-vessel disease with LAD 90% stenosis mid segment left circumflex 95% stenosis LAD and obtuse marginal 80% stenosis RCA 99% subtotal occlusion mid segment. Daughter discussed with social work preference to transfer to CT surgery capable facility [facility] or [facility] 11/08: Status post right IJ triple-lumen catheter placement. Seen on vent AC mode with O2 saturations 94% on 40% FiO2 PEEP of 5. Labs pending. Maintain on heparin gtt. amiodarone gtt. sedated on Versed. Afebrile. 11/09: WBC 11.4, CR improved to 1.4, NA 133. ABG 7.4 on 40% FiO2 PEEP of 5. Attempted wean off Versed for 12 hours and transition to Precedex patient became agitated overnight and Versed was resumed.Urine output 3.4 L yesterday and 1.7 L so far today. Remains on heparin gtt. and amiodarone, milrinone, lasix 11/10: ABG 7.5 on 40% FiO2 PEEP of 5. CR 1.2 currently K3.1 remains on milrinone and Lasix on heparin gtt., 2.8 L urine output. Sedated on Precedex propofol. 11/11: Extubated without event, still on milrinone gtt., potassium 3 magnesium 1.7. Still on Lasix IV. He is very thankful to the people at the [employer] who saved his life and he is oriented alert no focal neurologic deficits on exam. He does complain of some sternal chest pain is reproducible. Vitals/I&O Vitals/I&O: Vital Signs Date Time Temp Pulse Resp B/P (MAP) Pulse Ox O2 Delivery O2 Flow Rate FiO2 11/11/21 06:00 74 148/75 96 Room Air 11/11/21 04:00 98.3 26 98.3 11/10/21 20:25 1.0 I & O 11/10/21 11/10/21 11/11/21 15:00 23:00 07:00 Intake Total 66.45 ml 375.7 ml Output Total 950 ml 1010 ml 365 ml Balance -950 ml -943.55 ml 10.7 ml Physical Exam General: Alert, Oriented X3, Cooperative, mild distress Heart: Regular rate Lungs: Clear Abdomen: Soft Extremities: No edema Skin: No significant lesion Labs Labs: Laboratory Tests Test 11/10/21 08:36 11/10/21 11:16 11/11/21 05:30 11/11/21 05:50 Heparin Anti-Xa Act, Unfractionated 0.43 IU/mL (0.30-0.70) 0.43 IU/mL (0.30-0.70) O2 Saturation 95 % (92-99) Arterial Blood pH 7.50 (7.35-7.45) Arterial Blood pCO2 at Patient Temp 38 mmHg (35-46) Arterial Blood pO2 at Patient Temp 75 mmHg (75-108) Arterial Blood HCO3 29 mmol/L (21-28) Arterial Blood Base Excess 5 mmol/L (-3-3) FiO2 40% cpap trial White Blood Count 9.0 x10^3/uL (4.0-11.0) Red Blood Count 3.66 x10^6/uL (4.30-5.70) Hemoglobin 11.7 g/dL (13.0-17.5) Hematocrit 34.2 % (39.0-53.0) Mean Corpuscular Volume 93 fL (79-100) Mean Corpuscular Hemoglobin 32 pg (25-35) Mean Corpuscular Hemoglobin Concent 34 g/dL (31-37) Red Cell Distribution Width 15.2 % (11.5-14.5) Platelet Count 362 x10^3/uL (140-400) Sodium Level 137 mmol/L (136-145) Potassium Level 3.0 mmol/L (3.5-5.1) Chloride Level 100 mmol/L (98-107) Carbon Dioxide Level 27 mmol/L (21-32) Anion Gap 10 (6-14) Blood Urea Nitrogen 19 mg/dL (8-26) Creatinine 1.1 mg/dL (0.7-1.3) Estimated GFR (Cockcroft-Gault) 70.6 Glucose Level 73 mg/dL (70-99) Calcium Level 8.7 mg/dL (8.5-10.1) Assessment and Plan Assessmemt and Plan Problems Medical Problems: (1) Cardiac arrest Status: Acute Comment Review of Relevant I have reviewed the following items meka (where applicable) has been applied. Medications: Current Medications Medications (Trade) Dose Ordered Sig/Claude Route PRN Reason Start Time Stop Time Status Last Admin Dose Admin Potassium Chloride/Water 100 ml @ 100 mls/hr Q1H IV 11/10/21 09:00 11/10/21 10:59 DC 4/29/22 12:03 Magnesium Sulfate 50 ml @ 25 mls/hr 1X ONCE IV 11/10/21 10:00 11/10/21 11:59 DC 11/10/21 11:07 Acetaminophen (Tylenol Supp) 650 mg PRN Q6HRS PRN VT MILD PAIN / TEMP > 100.3'F 11/10/21 18:45 11/10/21 20:15 Justifications for Admission Other Justification YEHUDA HAMM MD Nov 11, 2021 08:15
[2021-11-11] MEDS: AMIODARONE HCL 200 MG TABLET. PO SCH (08:16)
[2021-11-11] MEDS: FUROSEMIDE 40 MG/4 ML VIAL. IVP SCH (08:17)
[2021-11-11] MEDS: POLYETHYLENE GLYCOL 3350 17 GM PACKET. PO SCH (08:32)
[2021-11-11] MEDS: POTASSIUM CHLORIDE 20MEQ 100 ML IV SCH ×2 (08:51→10:41)
[2021-11-11] MEDS: HEPARIN 25,000UTS/250ML PREMIX 250 ML IV PRN ×2 (09:09→21:21)
--- NOTE | 2021-11-11 10:06 | PDOC ---
PULMONARY PROGRESS NOTES DATE: 11/11/21 TIME: 10:04 Subjective Patient extubated 11/10/2021. Fully awake. No shortness of breath no cough. Vitals Vital Signs Date Time Temp Pulse Resp B/P (MAP) Pulse Ox O2 Delivery O2 Flow Rate FiO2 11/11/21 08:16 68 145/86 11/11/21 06:00 96 Room Air 11/11/21 04:00 98.3 26 98.3 11/10/21 20:25 1.0 Comments Remains on mechanical ventilation. General: Alert, No acute distress Lungs: Clear Cardiovascular: S1 Abdomen: Soft Extremities: No Edema Skin: Warm Labs Laboratory Tests Test 11/10/21 05:25 11/10/21 07:31 11/10/21 08:36 11/10/21 11:16 Sodium Level 135 mmol/L (136-145) Potassium Level 3.1 mmol/L (3.5-5.1) Chloride Level 98 mmol/L (98-107) Carbon Dioxide Level 30 mmol/L (21-32) Anion Gap 7 (6-14) Blood Urea Nitrogen 22 mg/dL (8-26) Creatinine 1.2 mg/dL (0.7-1.3) Estimated GFR (Cockcroft-Gault) 63.8 Glucose Level 105 mg/dL (70-99) Calcium Level 8.6 mg/dL (8.5-10.1) Magnesium Level 1.7 mg/dL (1.8-2.4) O2 Saturation 94 % (92-99) 95 % (92-99) Arterial Blood pH 7.52 (7.35-7.45) 7.50 (7.35-7.45) Arterial Blood pCO2 at Patient Temp 35 mmHg (35-46) 38 mmHg (35-46) Arterial Blood pO2 at Patient Temp 71 mmHg (75-108) 75 mmHg (75-108) Arterial Blood HCO3 28 mmol/L (21-28) 29 mmol/L (21-28) Arterial Blood Base Excess 5 mmol/L (-3-3) 5 mmol/L (-3-3) FiO2 40% vent 40% cpap trial Heparin Anti-Xa Act, Unfractionated 0.43 IU/mL (0.30-0.70) Test 11/11/21 05:30 11/11/21 05:50 White Blood Count 9.0 x10^3/uL (4.0-11.0) Red Blood Count 3.66 x10^6/uL (4.30-5.70) Hemoglobin 11.7 g/dL (13.0-17.5) Hematocrit 34.2 % (39.0-53.0) Mean Corpuscular Volume 93 fL (79-100) Mean Corpuscular Hemoglobin 32 pg (25-35) Mean Corpuscular Hemoglobin Concent 34 g/dL (31-37) Red Cell Distribution Width 15.2 % (11.5-14.5) Platelet Count 362 x10^3/uL (140-400) Sodium Level 137 mmol/L (136-145) Potassium Level 3.0 mmol/L (3.5-5.1) Chloride Level 100 mmol/L (98-107) Carbon Dioxide Level 27 mmol/L (21-32) Anion Gap 10 (6-14) Blood Urea Nitrogen 19 mg/dL (8-26) Creatinine 1.1 mg/dL (0.7-1.3) Estimated GFR (Cockcroft-Gault) 70.6 Glucose Level 73 mg/dL (70-99) Calcium Level 8.7 mg/dL (8.5-10.1) Heparin Anti-Xa Act, Unfractionated 0.43 IU/mL (0.30-0.70) Laboratory Tests Test 11/10/21 11:16 11/11/21 05:30 11/11/21 05:50 O2 Saturation 95 % (92-99) Arterial Blood pH 7.50 (7.35-7.45) Arterial Blood pCO2 at Patient Temp 38 mmHg (35-46) Arterial Blood pO2 at Patient Temp 75 mmHg (75-108) Arterial Blood HCO3 29 mmol/L (21-28) Arterial Blood Base Excess 5 mmol/L (-3-3) FiO2 40% cpap trial White Blood Count 9.0 x10^3/uL (4.0-11.0) Red Blood Count 3.66 x10^6/uL (4.30-5.70) Hemoglobin 11.7 g/dL (13.0-17.5) Hematocrit 34.2 % (39.0-53.0) Mean Corpuscular Volume 93 fL (79-100) Mean Corpuscular Hemoglobin 32 pg (25-35) Mean Corpuscular Hemoglobin Concent 34 g/dL (31-37) Red Cell Distribution Width 15.2 % (11.5-14.5) Platelet Count 362 x10^3/uL (140-400) Sodium Level 137 mmol/L (136-145) Potassium Level 3.0 mmol/L (3.5-5.1) Chloride Level 100 mmol/L (98-107) Carbon Dioxide Level 27 mmol/L (21-32) Anion Gap 10 (6-14) Blood Urea Nitrogen 19 mg/dL (8-26) Creatinine 1.1 mg/dL (0.7-1.3) Estimated GFR (Cockcroft-Gault) 70.6 Glucose Level 73 mg/dL (70-99) Calcium Level 8.7 mg/dL (8.5-10.1) Heparin Anti-Xa Act, Unfractionated 0.43 IU/mL (0.30-0.70) Comments Chest x-ray reviewed 11/10/2021. Mildly prominent vascular markings. Tiny left basal atelectasis. No definite consolidation. Chest x-ray reviewed 11/07/2021. No obvious CHF. Minimal atelectasis right lower lobe chest x-ray done on 11/05/2021 reviewed. Evidence of mild congestive heart failure Impression . 1. Acute hypoxemic respiratory failure secondary to [id number] cardiopulmonary arrest. [id number]-[id number] cardiopulmonary arrest secondary to V-tach, status post 1 time defibrillation, 1 amp of epinephrine. Status postextubation 11/10/2021. Doing well. 2. Elevated troponin, suspect related to CPR and acute non-ST segment elevation myocardial infarction. 3. Abnormal x-ray, compatible with pulmonary edema. 4. Acute systolic heart failure. 5. Hyponatremia. 6. Hypokalemia. 7. Status post cardiac cath with severe three-vessel coronary artery disease and ejection fraction of 15%. 8. Cardiogenic shock, on low-dose Levophed 9. Encephalopathy. 10. Tracheobronchitis. Empirically antibiotics added 11/09/2021. No definite consolidation seen on chest x-ray. Plan . 1. Patient is extubated 11/10. Doing very well. 2. Cardiac catheterization findings reviewed. Awaiting transfer to tertiary care center. 3. Continue heparin. 4. Continue IV amiodarone. 5. Diurese per Cardiology. 6. Monitor labs. 7. Replace potassium as needed. 8. Levophed as needed. 9. Discussed with RN and RT. Discussed with daughter. Awaiting plans to transfer to [facility] for cardiovascular bypass. YOHANA PERKINS MD Nov 11, 2021 10:06
--- NOTE | 2021-11-11 10:09 | PDOC ---
CARDIOLOGY PROGRESS NOTE SUBJECTIVE: Patient denies any dyspnea. He has some chest discomfort from rib pain when he received CPR. He appears anxious today regarding his upcoming cardiac surgery OBJECTIVE: Vital Signs/I&O: Vital Signs Date Time Temp Pulse Resp B/P (MAP) Pulse Ox O2 Delivery O2 Flow Rate FiO2 11/11/21 08:16 68 145/86 11/11/21 06:00 96 Room Air 11/11/21 04:00 98.3 26 98.3 11/10/21 20:25 1.0 I & O 11/10/21 11/10/21 11/11/21 15:00 23:00 07:00 Intake Total 66.45 ml 375.7 ml Output Total 950 ml 1010 ml 365 ml Balance -950 ml -943.55 ml 10.7 ml Objective: GEN.: No apparent distress. Alert and oriented. HEENT: Head is normocephalic, atraumatic NECK: Supple. LUNGS: Clear to auscultation. HEART: RRR, S1, S2 present. Peripheral pulses intact ABDOMEN: Soft, nontender. Positive bowel sounds. EXTREMITIES: Without any cyanosis. NEUROLOGIC: Normal speech, normal tone PSYCHIATRIC: Normal affect, normal mood. SKIN: No ulcerations CURRENT MEDICATIONS: Amiodarone, Lasix, milrinone, heparin DIAGNOSTIC TESTING: Labs reviewed Labs: Laboratory Tests 11/11/21 05:30 Laboratory Tests Test 11/10/21 11:16 11/11/21 05:30 11/11/21 05:50 O2 Saturation 95 % (92-99) Arterial Blood pH 7.50 (7.35-7.45) H Arterial Blood pCO2 at Patient Temp 38 mmHg (35-46) Arterial Blood pO2 at Patient Temp 75 mmHg (75-108) Arterial Blood HCO3 29 mmol/L (21-28) H Arterial Blood Base Excess 5 mmol/L (-3-3) H FiO2 40% cpap trial White Blood Count 9.0 x10^3/uL (4.0-11.0) Red Blood Count 3.66 x10^6/uL (4.30-5.70) L Hemoglobin 11.7 g/dL (13.0-17.5) L Hematocrit 34.2 % (39.0-53.0) L Mean Corpuscular Volume 93 fL (79-100) Mean Corpuscular Hemoglobin 32 pg (25-35) Mean Corpuscular Hemoglobin Concent 34 g/dL (31-37) Red Cell Distribution Width 15.2 % (11.5-14.5) H Platelet Count 362 x10^3/uL (140-400) Sodium Level 137 mmol/L (136-145) Potassium Level 3.0 mmol/L (3.5-5.1) L Chloride Level 100 mmol/L (98-107) Carbon Dioxide Level 27 mmol/L (21-32) Anion Gap 10 (6-14) Blood Urea Nitrogen 19 mg/dL (8-26) Creatinine 1.1 mg/dL (0.7-1.3) Estimated GFR (Cockcroft-Gault) 70.6 Glucose Level 73 mg/dL (70-99) Calcium Level 8.7 mg/dL (8.5-10.1) Heparin Anti-Xa Act, Unfractionated 0.43 IU/mL (0.30-0.70) ASSESSMENT: 1. Ischemic cardiomyopathy with cardiac arrest PLAN: 1. Continue current medical therapy. We will plan on transferring to [facility] when a bed is available for high risk bypass surgery. Justicifation of Admission Dx: Justifications for Admission: Justification of Admission Dx: Yes ARGELIA BARAJAS MD Nov 11, 2021 10:09
--- NOTE | 2021-11-11 10:11 | NUR ---
per physician request [facility] transfer center updated on pt condition, not extubated and stable. Transfer Center informed me it will be a reansfer on Saturday at this time. Addendum: 11/11/21 at 1134 by MELVINA JEAN BAPTISTE RN Per physician request [facility] transfer center updated on pt condition. Pt extubated and is now stable for transfer. Transfer center informed me that the transfer will happen on SaturdayNovember 12 .
[2021-11-11] MEDS: cefTRIAXone IV Push 1 GM VIAL. IVP SCH (11:08)
[2021-11-11] MEDS: traMADol 50 MG TABLET PO PRN ×2 (11:36→18:08)
[2021-11-11] MEDS: LORazepam 0.5 MG TABLET PO PRN ×2 (11:36→21:23)
[2021-11-11] MEDS: MILRINONE 20MG/100ML PREMIX 100 ML IV PRN (17:42)
[2021-11-11] MEDS ORDERED: MORPHINE SULFATE 2 MG/ML INJ. IVP PRN (20:45)
[2021-11-11] MEDS: HYDROcodone/APAP 5/325MG 1 TAB TABLET PO PRN (21:03)
[2021-11-12] VITALS (10 sets, daily range): BP systolic 128–161; BP diastolic 70–86
[2021-11-12] MEDS: LORazepam 0.5 MG TABLET PO PRN (08:14)
[2021-11-12] MEDS: AMIODARONE HCL 200 MG TABLET. PO SCH (08:14)
[2021-11-12] MEDS: POLYETHYLENE GLYCOL 3350 17 GM PACKET. PO SCH (08:15)
[2021-11-12] MEDS: ASPIRIN CHEWABLE 81 MG TABLET. PO SCH (08:15)
[2021-11-12] MEDS: HYDROcodone/APAP 5/325MG 1 TAB TABLET PO PRN (08:15)
[2021-11-12] MEDS: HEPARIN 25,000UTS/250ML PREMIX 250 ML IV PRN (09:06)
--- NOTE | 2021-11-12 09:08 | PDOC ---
PULMONARY PROGRESS NOTES DATE: 11/12/21 TIME: 09:08 Subjective Patient extubated 11/10/2021. Fully awake. No shortness of breath no cough. Vitals Vital Signs Date Time Temp Pulse Resp B/P (MAP) Pulse Ox O2 Delivery O2 Flow Rate FiO2 11/12/21 08:45 95 Room Air 11/12/21 08:14 80 140/81 11/12/21 06:00 18 11/12/21 04:00 98.8 98.8 Comments Remains on mechanical ventilation. General: Alert, No acute distress Lungs: Clear Cardiovascular: S1 Abdomen: Soft Extremities: No Edema Skin: Warm Labs Laboratory Tests Test 11/10/21 11:16 11/11/21 05:30 11/11/21 05:50 11/12/21 04:20 O2 Saturation 95 % (92-99) Arterial Blood pH 7.50 (7.35-7.45) Arterial Blood pCO2 at Patient Temp 38 mmHg (35-46) Arterial Blood pO2 at Patient Temp 75 mmHg (75-108) Arterial Blood HCO3 29 mmol/L (21-28) Arterial Blood Base Excess 5 mmol/L (-3-3) FiO2 40% cpap trial White Blood Count 9.0 x10^3/uL (4.0-11.0) Red Blood Count 3.66 x10^6/uL (4.30-5.70) Hemoglobin 11.7 g/dL (13.0-17.5) Hematocrit 34.2 % (39.0-53.0) Mean Corpuscular Volume 93 fL (79-100) Mean Corpuscular Hemoglobin 32 pg (25-35) Mean Corpuscular Hemoglobin Concent 34 g/dL (31-37) Red Cell Distribution Width 15.2 % (11.5-14.5) Platelet Count 362 x10^3/uL (140-400) Sodium Level 137 mmol/L (136-145) Potassium Level 3.0 mmol/L (3.5-5.1) Chloride Level 100 mmol/L (98-107) Carbon Dioxide Level 27 mmol/L (21-32) Anion Gap 10 (6-14) Blood Urea Nitrogen 19 mg/dL (8-26) Creatinine 1.1 mg/dL (0.7-1.3) Estimated GFR (Cockcroft-Gault) 70.6 Glucose Level 73 mg/dL (70-99) Calcium Level 8.7 mg/dL (8.5-10.1) Heparin Anti-Xa Act, Unfractionated 0.43 IU/mL (0.30-0.70) 0.52 IU/mL (0.30-0.70) Laboratory Tests Test 11/12/21 04:20 Heparin Anti-Xa Act, Unfractionated 0.52 IU/mL (0.30-0.70) Comments Chest x-ray reviewed 11/10/2021. Mildly prominent vascular markings. Tiny left basal atelectasis. No definite consolidation. Chest x-ray reviewed 11/07/2021. No obvious CHF. Minimal atelectasis right lower lobe chest x-ray done on 11/05/2021 reviewed. Evidence of mild congestive heart failure Impression . 1. Acute hypoxemic respiratory failure secondary to [id number] cardiopulmonary arrest. [id number]-[id number] cardiopulmonary arrest secondary to V-tach, status post 1 time defibrillation, 1 amp of epinephrine. Status postextubation 11/10/2021. Doing well. 2. Elevated troponin, suspect related to CPR and acute non-ST segment elevation myocardial infarction. 3. Abnormal x-ray, compatible with pulmonary edema. 4. Acute systolic heart failure. 5. Hyponatremia. 6. Hypokalemia. 7. Status post cardiac cath with severe three-vessel coronary artery disease and ejection fraction of 15%. 8. Cardiogenic shock, on low-dose Levophed 9. Encephalopathy. 10. Tracheobronchitis. Empirically antibiotics added 11/09/2021. No definite consolidation seen on chest x-ray. Plan . 1. Patient is extubated 11/10. Doing very well. 2. Cardiac catheterization findings reviewed. Awaiting transfer to tertiary care center. 3. Continue heparin. 4. Continue IV amiodarone. 5. Diurese per Cardiology. 6. Monitor labs. 7. Replace potassium as needed. 8. Levophed as needed. 9. Discussed with RN and RT. Discussed with daughter. Awaiting plans to transfer to [facility] for cardiovascular bypass. YOHANA PERKINS MD November 12, 2021 09:08
--- NOTE | 2021-11-12 09:21 | PDOC ---
[employer] PROGRESS NOTE Date of Service DOS: DATE: 11/12/21 TIME: 09:16 Chief Complaint Chief Complaint Ventricular tachycardia arrest - on amiodarone. Repeat EKG stable sinus 3 vessel CAD - s/p cardiac catheterization, awaiting transfer to tertiary care center for CT surgery evaluation Acute combined systolic and diastolic CHF - due to cardiac arrest, echo to assess systolic function reveals EF 15-20%. Milrinone and lasix per cardiology Hyponatremia - likely hypervolemic, possibly alcohol related Hypokalemia - replaced Hyperglycemia - A1c 5.5, likely was stress related Respiratory arrest - due to cardiac arrest. Pulmonology consulted. Extubated without event on 11/10/2021 FEN - NPO PPX - heparin FULL CODE Dispo - ICU cc time 31 minutes History of Present Illness History of Present Illness Mr Goel is a 51 year old male brought in to ED on 11/05/2021 via EMS after cardiac arrest. Patient had a witnessed cardiac arrest while dancing at a local [email or web address] club. Patient was found to be in V. tach by first responders. Patient was shocked and given 1 of epi. Patient achieved ROSC. Patient was intubated in the field and brought into the hospital. Labs with WBC 11.3, Hb 13.5, platelets 330, NA 132, K3 BUN 5, CR 1, glucose 164, calcium 8.1, albumin 3.4, LFTs otherwise within normal laboratory limits, NT proBNP 5695, high-sensitivity troponin is 76 urine drug screen positive for ethyl alcohol, urinalysis bland, INR 1.2, D-dimer 19.35, ABG on 60% FiO2 was 7.31/32/158. Chest radiograph well-positioned ET tube and increased interstitial markings. Noncontrast CT head with no acute findings EKG sinus rate 87 bpm incomplete left bundle branch block, QRS 140, QTc 506, PVCs noted. No significant ST elevation or T WI. Admitted to ICU on amiodarone and heparin GTT 11/07: Seen in ICU on vent. ABG 7.3 / on 40% FiO2 PEEP of 5, CR up to 2. Status post coronary angiogram on 11/06/2021 with severe three-vessel disease with LAD 90% stenosis mid segment left circumflex 95% stenosis LAD and obtuse marginal 80% stenosis RCA 99% subtotal occlusion mid segment. Daughter discussed with social work preference to transfer to CT surgery capable facility either [facility] or [facility] 11/08: Status post right IJ triple-lumen catheter placement. Seen on vent AC mode with O2 saturations 94% on 40% FiO2 PEEP of 5. Labs pending. Maintain on heparin gtt. amiodarone gtt. sedated on Versed. Afebrile. 11/09: WBC 11.4, CR improved to 1.4, NA 133. ABG 7.4 on 40% FiO2 PEEP of 5. Attempted wean off Versed for 12 hours and transition to Precedex patient became agitated overnight and Versed was resumed.Urine output 3.4 L yesterday and 1.7 L so far today. Remains on heparin gtt. and amiodarone, milrinone, lasix 11/10: ABG 7.5 on 40% FiO2 PEEP of 5. CR 1.2 currently K3.1 remains on milrinone and Lasix on heparin gtt., 2.8 L urine output. Sedated on Precedex propofol. 11/11: Extubated without event, still on milrinone gtt., potassium 3 magnesium 1.7. Still on Lasix IV. He is very thankful to the people at the [employer] club who saved his life and he is oriented alert no focal neurologic deficits on exam. He does complain of some sternal chest pain is reproducible. 11/12: Seen bedside with multiple visible visitors tolerating milrinone and heparin gtt. Labs pending. Still having substernal chest pain. Had some itching after hydrocodone given Benadryl. Plan for transfer to tertiary care center for assessment for high risk CABG. Vitals/I&O Vitals/I&O: Vital Signs Date Time Temp Pulse Resp B/P (MAP) Pulse Ox O2 Delivery O2 Flow Rate FiO2 11/12/21 08:45 95 Room Air 11/12/21 08:14 80 140/81 11/12/21 06:00 18 11/12/21 04:00 98.8 98.8 I & O 11/11/21 11/11/21 11/12/21 15:00 23:00 07:00 Intake Total 150 ml 810 ml 200 ml Output Total 880 ml 1280 ml 800 ml Balance -730 ml -470 ml -600 ml Physical Exam General: Alert, Oriented X3, Cooperative, mild distress Heart: Regular rate Lungs: Clear Abdomen: Soft Extremities: No edema Skin: No significant lesion Labs Labs: Laboratory Tests Test 11/12/21 04:20 Heparin Anti-Xa Act, Unfractionated 0.52 IU/mL (0.30-0.70) Assessment and Plan Assessmemt and Plan Problems Medical Problems: (1) Cardiac arrest Status: Acute Comment Review of Relevant I have reviewed the following items meka (where applicable) has been applied. Medications: Current Medications Medications (Trade) Dose Ordered Sig/Claude Route PRN Reason Start Time Stop Time Status Last Admin Dose Admin Furosemide (Lasix) 40 mg DAILY10 IVP 11/12/21 10:00 11/12/21 08:16 Lorazepam (Ativan) 0.5 mg PRN Q8HRS PRN PO ANXIETY / AGITATION 11/11/21 11:30 11/12/21 08:14 Tramadol HCl (Ultram) 50 mg PRN Q6HRS PRN PO MILD TO MODERATE PAIN 11/11/21 11:30 11/11/21 18:08 Morphine Sulfate (Morphine Sulfate) 2 mg PRN Q2HR PRN IVP PAIN 11/11/21 20:45 11/12/21 01:41 Acetaminophen/ Hydrocodone Bitart (Lortab 5/325) 1 tab PRN Q6HRS PRN PO MODERATE TO SEVERE PAIN 11/11/21 20:45 11/12/21 08:15 Justifications for Admission Other Justification YEHUDA HAMM MD November 12, 2021 09:21
[2021-11-12] MEDS ORDERED: diphenhydrAMINE HCL 25 MG CAPSULE PO PRN (09:30)
[2021-11-12 09:51] LABS: CALCIUM 8.6 mg/dL (8.5-10.1); GFR 78.8; MAGNESIUM 1.9 mg/dL (1.8-2.4)
[2021-11-12] MEDS ORDERED: FUROSEMIDE 40 MG/4 ML VIAL. IVP SCH (10:00)
--- NOTE | 2021-11-12 10:12 | PDOC3 ---
Discharge Summary Visit Information Date of Admission: Nov 05, 2021 Date of Discharge: November 12, 2021 Admitting Diagnosis: Ventricular tachycardia cardiac Arrest Final Diagnosis Problems Medical Problems: (1) Cardiac arrest Status: Acute Brief Hospital Course Allergies Allergies Coded Allergies Type Severity Reaction Last Updated Verified codeine Allergy Severe Rash 11/11/21 Yes Vital Signs Vital Signs Date Time Temp Pulse Resp B/P (MAP) Pulse Ox O2 Delivery O2 Flow Rate FiO2 11/12/21 08:45 95 Room Air 11/12/21 08:14 80 140/81 11/12/21 07:00 18 11/12/21 04:00 98.8 98.8 Lab Results Laboratory Tests Test 11/10/21 11:16 11/11/21 05:30 11/11/21 05:50 11/12/21 04:20 O2 Saturation 95 % (92-99) Arterial Blood pH 7.50 (7.35-7.45) Arterial Blood pCO2 at Patient Temp 38 mmHg (35-46) Arterial Blood pO2 at Patient Temp 75 mmHg (75-108) Arterial Blood HCO3 29 mmol/L (21-28) Arterial Blood Base Excess 5 mmol/L (-3-3) FiO2 40% cpap trial White Blood Count 9.0 x10^3/uL (4.0-11.0) Red Blood Count 3.66 x10^6/uL (4.30-5.70) Hemoglobin 11.7 g/dL (13.0-17.5) Hematocrit 34.2 % (39.0-53.0) Mean Corpuscular Volume 93 fL (79-100) Mean Corpuscular Hemoglobin 32 pg (25-35) Mean Corpuscular Hemoglobin Concent 34 g/dL (31-37) Red Cell Distribution Width 15.2 % (11.5-14.5) Platelet Count 362 x10^3/uL (140-400) Sodium Level 137 mmol/L (136-145) 139 mmol/L (136-145) Potassium Level 3.0 mmol/L (3.5-5.1) 3.0 mmol/L (3.5-5.1) Chloride Level 100 mmol/L (98-107) 98 mmol/L (98-107) Carbon Dioxide Level 27 mmol/L (21-32) 31 mmol/L (21-32) Anion Gap 10 (6-14) 10 (6-14) Blood Urea Nitrogen 19 mg/dL (8-26) 17 mg/dL (8-26) Creatinine 1.1 mg/dL (0.7-1.3) 1.0 mg/dL (0.7-1.3) Estimated GFR (Cockcroft-Gault) 70.6 78.8 Glucose Level 73 mg/dL (70-99) 109 mg/dL (70-99) Calcium Level 8.7 mg/dL (8.5-10.1) 8.6 mg/dL (8.5-10.1) Heparin Anti-Xa Act, Unfractionated 0.43 IU/mL (0.30-0.70) 0.52 IU/mL (0.30-0.70) Magnesium Level 1.9 mg/dL (1.8-2.4) Laboratory Tests Test 11/12/21 04:20 Heparin Anti-Xa Act, Unfractionated 0.52 IU/mL (0.30-0.70) Sodium Level 139 mmol/L (136-145) Potassium Level 3.0 mmol/L (3.5-5.1) Chloride Level 98 mmol/L (98-107) Carbon Dioxide Level 31 mmol/L (21-32) Anion Gap 10 (6-14) Blood Urea Nitrogen 17 mg/dL (8-26) Creatinine 1.0 mg/dL (0.7-1.3) Estimated GFR (Cockcroft-Gault) 78.8 Glucose Level 109 mg/dL (70-99) Calcium Level 8.6 mg/dL (8.5-10.1) Magnesium Level 1.9 mg/dL (1.8-2.4) Brief Hospital Course Mr Goel is a 51 year old male brought in to ED on 11/05/2021 via EMS after cardiac arrest. Patient had a witnessed cardiac arrest while dancing at a local [email or web address]. Patient was found to be in V. tach by first responders. Patient was shocked and given 1 of epi. Patient achieved ROSC. Patient was intubated in the field and brought into the hospital. Labs with WBC 11.3, Hb 13.5, platelets 330, NA 132, K3 BUN 5, CR 1, glucose 164, calcium 8.1, albumin 3.4, LFTs otherwise within normal laboratory limits, NT proBNP 5695, high-sensitivity troponin is 76 urine drug screen positive for ethyl alcohol, urinalysis bland, INR 1.2, D-dimer 19.35, ABG on 60% FiO2 was 7.31/32/158. Chest radiograph well-positioned ET tube and increased interstitial markings. Noncontrast CT head with no acute findings EKG sinus rate 87 bpm incomplete left bundle branch block, QRS 140, QTc 506, PVCs noted. No significant ST elevation or T WI. Admitted to ICU on amiodarone and heparin GTT 11/07: Seen in ICU on vent. ABG 7.3 on 40% FiO2 PEEP of 5, CR up to 2. Status post coronary angiogram on 11/06/2021 with severe three-vessel disease with LAD 90% stenosis mid segment left circumflex 95% stenosis LAD and obtuse marginal 80% stenosis RCA 99% subtotal occlusion mid segment. Daughter discussed with social work preference to transfer to CT surgery capable facility [facility] or [facility] 11/08: Status post right IJ triple-lumen catheter placement. Seen on vent AC mode with O2 saturations 94% on 40% FiO2 PEEP of 5. Labs pending. Maintain on heparin gtt. amiodarone gtt. sedated on Versed. Afebrile. 11/09: WBC 11.4, CR improved to 1.4, NA 133. ABG 7.4 on 40% FiO2 PEEP of 5. Attempted wean off Versed for 12 hours and transition to Precedex patient became agitated overnight and Versed was resumed.Urine output 3.4 L yesterday and 1.7 L so far today. Remains on heparin gtt. and amiodarone, milrinone, lasix 11/10: ABG 7.5 on 40% FiO2 PEEP of 5. CR 1.2 currently K3.1 remains on milrinone and Lasix on heparin gtt., 2.8 L urine output. Sedated on Precedex propofol. 11/11: Extubated without event, still on milrinone gtt., potassium 3 magnesium 1.7. Still on Lasix IV. He is very thankful to the people at the [employer] who saved his life and he is oriented alert no focal neurologic deficits on exam. He does complain of some sternal chest pain is reproducible. 5/1: Seen bedside with multiple visible visitors tolerating milrinone and heparin gtt. Labs pending. Still having substernal chest pain. Had some itching after hydrocodone given Benadryl. Plan for transfer to [facility] for assessment for high risk CABG. Potassium 3 mag 1.9 replaced with 80 mEq of potassium via 40 mg IV and 40 woke up with p.o. and 1 g of magnesium sulfate. Discussed with cardiology and pulmonology bedside stable for transfer on titrated milrinone gtt. given IV Lasix 40 mg to this morning. Excellent urine output Scott still in place. Consults: Cardiology and Pulmonology Problem list: Ventricular tachycardia arrest - on amiodarone. Repeat EKG stable sinus 3 vessel CAD - s/p cardiac catheterization, awaiting transfer to [facility] for CT surgery evaluation Acute combined systolic and diastolic CHF - due to cardiac arrest, echo to assess systolic function reveals EF 15-20%. Milrinone and lasix per cardiology Hyponatremia - likely hypervolemic, possibly alcohol related Hypokalemia - replaced Hyperglycemia - A1c 5.5, likely was stress related Respiratory arrest - due to cardiac arrest. Pulmonology consulted. Extubated without event on 11/10/2021 Greater than 30 minutes spent on d/c to [facility] for assessment for CABG Discharge Information Condition at Discharge: Stable Follow Up: Weeks (1) Disposition/Orders: D/C to Another Facility ([facility] - [facility]) Justicifation of Admission Dx: Justifications for Admission: Justification of Admission Dx: Yes YEHUDA HAMM MD November 12, 2021 10:12
[2021-11-12] MEDS ORDERED: POTASSIUM CHLORIDE 20 MEQ TABLET.ER. PO ONE (10:15)
[2021-11-12] MEDS ORDERED: MAGNESIUM SULFATE 1GM 100 ML IV ONE (10:15)
[2021-11-12] MEDS: POTASSIUM CHLORIDE 20MEQ 100 ML IV SCH ×3 (10:44→12:41)
--- NOTE | 2021-11-12 13:10 | NUR ---
Pt alert and oriented x4, pt tranferred to [facility] via [facility]. IV lines open and running without complications. Milrinone, Heparin and Potassium infusing at ordered rate. Report given to AGATHA NEWBERRY at [facility] in ICU unit. All plans, labs and assessment data reviewed with Cristhian. Patient has no belongings to transfer.
--- NOTE | 2021-11-12 18:45 | PDOC ---
CARDIOLOGY PROGRESS NOTE SUBJECTIVE: No new issues. OBJECTIVE: Vital Signs/I&O: Vital Signs Date Time Temp Pulse Resp B/P (MAP) Pulse Ox O2 Delivery O2 Flow Rate FiO2 11/12/21 12:00 Room Air 11/12/21 09:00 84 18 140/81 95 11/12/21 08:00 98.6 98.6 I & O 11/11/21 11/11/21 11/12/21 15:00 23:00 07:00 Intake Total 150 ml 810 ml 200 ml Output Total 880 ml 1280 ml 800 ml Balance -730 ml -470 ml -600 ml Objective: GEN.: No apparent distress. Alert and oriented. HEENT: Head is normocephalic, atraumatic NECK: Supple. LUNGS: Clear to auscultation. HEART: RRR, S1, S2 present. Peripheral pulses intact ABDOMEN: Soft, nontender. Positive bowel sounds. EXTREMITIES: Without any cyanosis. NEUROLOGIC: Normal speech, normal tone PSYCHIATRIC: Normal affect, normal mood. SKIN: No ulcerations CURRENT MEDICATIONS: Current Medications Medications (Trade) Dose Ordered Sig/Claude Route PRN Reason Start Time Stop Time Status Last Admin Dose Admin Furosemide (Lasix) 40 mg DAILY10 IVP 11/12/21 10:00 11/12/21 13:33 DC 11/12/21 08:16 Morphine Sulfate (Morphine Sulfate) 2 mg PRN Q2HR PRN IVP PAIN 11/11/21 20:45 11/12/21 09:23 DC 11/12/21 01:41 Acetaminophen/ Hydrocodone Bitart (Lortab 5/325) 1 tab PRN Q6HRS PRN PO MODERATE TO SEVERE PAIN 11/11/21 20:45 11/12/21 09:23 DC 11/12/21 08:15 Diphenhydramine HCl (Benadryl) 25 mg PRN Q6HRS PRN PO ITCHING 11/12/21 09:30 11/12/21 13:33 DC 11/12/21 09:51 Potassium Chloride/Water 100 ml @ 100 mls/hr Q1H IV 11/12/21 11:00 11/12/21 13:33 DC 11/12/21 12:00 Magnesium Sulfate/ Dextrose 100 ml @ 100 mls/hr 1X ONCE IV 11/12/21 10:15 11/12/21 11:14 DC 11/12/21 10:43 Potassium Chloride (Klor-Con) 40 meq 1X ONCE PO 11/12/21 10:15 11/12/21 10:16 DC 11/12/21 10:44 DIAGNOSTIC TESTING: Labs: Laboratory Tests 11/12/21 04:20 Laboratory Tests Test 11/12/21 04:20 Heparin Anti-Xa Act, Unfractionated 0.52 IU/mL (0.30-0.70) Sodium Level 139 mmol/L (136-145) Potassium Level 3.0 mmol/L (3.5-5.1) L Chloride Level 98 mmol/L (98-107) Carbon Dioxide Level 31 mmol/L (21-32) Anion Gap 10 (6-14) Blood Urea Nitrogen 17 mg/dL (8-26) Creatinine 1.0 mg/dL (0.7-1.3) Estimated GFR (Cockcroft-Gault) 78.8 Glucose Level 109 mg/dL (70-99) H Calcium Level 8.6 mg/dL (8.5-10.1) ASSESSMENT: 1. Ischemic CMP PLAN: 1. Continue milrinone and hep gtt. Awaiting transfer to [facility]. Justicifation of Admission Dx: Justifications for Admission: Justification of Admission Dx: Yes ARGELIA BARAJAS MD November 12, 2021 18:45
== END 2021-11-12 13:10 | disposition short-term general hospital (02) | DRG 207 ==
LOC: ER 22:34 → 1 WEST ICU 23:12
PROVIDERS: ADMIT Student in an Organized Health Care Education/Training Program; ATTEND Student in an Organized Health Care Education/Training Program
PROC: 5A1955Z Respiratory Ventilation, Greater than 96 Consecutive Hours (ICD-10-PCS; principal; 2021-11-05)
PROC: 4A023N7 Measurement of Cardiac Sampling and Pressure, Left Heart, Percutaneous Approach (ICD-10-PCS; 2021-11-05)
PROC: B2111ZZ Fluoroscopy of Multiple Coronary Arteries using Low Osmolar Contrast (ICD-10-PCS; 2021-11-05)
PROC: 0BH17EZ Insertion of Endotracheal Airway into Trachea, Via Natural or Artificial Opening (ICD-10-PCS; 2021-11-05)
PROC: 5A12012 Performance of Cardiac Output, Single, Manual (ICD-10-PCS; 2021-11-05)
PROC: 02H633Z Insertion of Infusion Device into Right Atrium, Percutaneous Approach (ICD-10-PCS; 2021-11-07)
PROC: B548ZZA Ultrasonography of Superior Vena Cava, Guidance (ICD-10-PCS; 2021-11-07)
DX: J96.01 Acute respiratory failure with hypoxia (principal); I21.4 Non-ST elevation (NSTEMI) myocardial infarction; I50.43 Acute on chronic combined systolic (congestive) and diastolic (congestive) heart failure; R57.0 Cardiogenic shock; I46.2 Cardiac arrest due to underlying cardiac condition; I47.2 Ventricular tachycardia; E87.1 Hypo-osmolality and hyponatremia; G93.40 Encephalopathy, unspecified; N17.9 Acute kidney failure, unspecified; E87.6 Hypokalemia; F17.210 Nicotine dependence, cigarettes, uncomplicated; I25.10 Atherosclerotic heart disease of native coronary artery without angina pectoris; I25.2 Old myocardial infarction; I25.5 Ischemic cardiomyopathy; J40 Bronchitis, not specified as acute or chronic; Z96.659 Presence of unspecified artificial knee joint; M19.90 Unspecified osteoarthritis, unspecified site; Z20.822 Contact with and (suspected) exposure to COVID-19; Z88.8 Allergy status to other drugs, medicaments and biological substances
CPT/HCPCS: 36415; 36556; 36600; 51702; 70450; 71045; 76937; 80048; 80053; 80061; 80307; 81001; 82805; 83036; 83735; 83880; 84443; 84484; 85025; 85027; 85379; 85520; 85610; 87426; 93005; 93306; 93458; 94002; 94003; 94760; 96361; 96365; 96368; 96375; 99152; C1892; C1894; C9113; J0282; J0360; J0696; J1644; J1940; J2250; J2260; J2270; J2704; J3010; J3475; J3480; J3490; J7030; J7040; J7060; Q9967; U0003; 92610-GN; 99291-25; C8929; G0378; Q0163